=== PATIENT | female | born 1960 | race African-American/Black ===

== ENCOUNTER 2017-07-11 15:03 | Emergency (ER) | payer OTHER ==
[2017-07-11 15:16] VITALS: BP 142/80; PULSE 95; TEMP 98.5; BMI 27.4
--- NOTE | 2017-07-11 16:46 | PDOC ---
History of Present Illness - History of Present Illness Initial Comments: 07/11/17 16:53 The patient is a 56 year old female with a significant PMH of asthma who presents to the emergency department with LLE pain s/p vascular surgery. The patient has left the ED AMA to bring her father home as he had no other way home. The patient has had recent vascular surgery and has an ulcer on her LLE. Dr. Thibodeaux has been sent a photograph of the ulcer and recommended that she be admitted Obs/Medsurge. She said she will return after she brings her father. <Rakesh Thomas - Last Filed: 07/11/17 16:58> <Ioana nAdrew - Last Filed: 07/11/17 22:24> - General Chief Complaint: Redness To Affected Area Stated Complaint: LT LEG PAIN Time Seen by Provider: 07/11/17 16:16 Past History <Rakesh Thomas - Last Filed: 07/11/17 16:58> - Past Medical History Asthma: Yes Other medical history: heroin abuse - Surgical History Abdominal Surgery: Yes (ECTOPIC ) - Suicide/Smoking/Psychosocial Hx Smoking History: Current every day smoker Have you smoked in the past 12 months: Yes Number of Cigarettes Smoked Daily: 6 Information on smoking cessation initiated: Yes 'Breaking Loose' booklet given: 07/11/17 Hx Alcohol Use: No Drug/Substance Use Hx: Yes (heroin) <Ioana Andrew - Last Filed: 07/11/17 22:24> - Past Medical History Allergies/Adverse Reactions: Allergies Allergy/AdvReac Type Severity Reaction Status Date / Time No Known Allergies Allergy Verified 07/11/17 15:10 Home Medications: Ambulatory Orders Albuterol 0.083% Nebulizer Jaja 1 puff IH TID PRN 01/10/17 Ranitidine HCl [Zantac] 150 mg PO DAILY 01/10/17 Ibuprofen [Motrin -] 600 mg PO TID PRN 05/13/17 Oxycodone HCl/Acetaminophen [Percocet 5-325 mg Tablet] 1 tab PO Q6H #30 tablet MDD 4 06/09/17 *Physical Exam - Vital Signs Last Vital Signs Temp Pulse Resp BP Pulse Ox 98.5 F 95 H 18 142/80 100 07/11/17 15:12 07/11/17 15:12 07/11/17 15:12 07/11/17 15:12 07/11/17 15:12 - Physical Exam Comments: 07/11/17 16:54 GENERAL: Well-appearing, well-nourished. No apparent distress. HEENT: Normocephalic, atraumatic. PERRL, EOM intact. CARDIOVASCULAR: Normal S1, S2. Regular rate and rhythm. PULMONARY: Clear to auscultation bilaterally. ABDOMEN: Soft, non-distended, non-tender. EXTREMITIES: (+) Medial aspect of LLE healed after vascular surgery. (+) Lateral 1 cm ulcer on LLE surrounded by 4 cm halo of erythema. Normal ROM in all four extremities. SKIN: Warm, dry. No rash NEUROLOGICAL: No focal neurological deficits. 07/11/17 16:58 <Rakesh Thomas - Last Filed: 07/11/17 16:58> - Vital Signs Last Vital Signs Temp Pulse Resp BP Pulse Ox 98.5 F 95 H 18 142/80 100 07/11/17 15:12 07/11/17 15:12 07/11/17 15:12 07/11/17 15:12 07/11/17 15:12 <Ioana Andrew - Last Filed: 07/11/17 22:24> Medical Decision Making - Medical Decision Making 07/11/17 17:27 56-year-old female who had laser, vascular surgery 2 weeks ago on her left ankle and lower calf presents with an ulceration and surrounding cellulitis and pain . in that area about 72 hours ago. She hit that leg. I sent photos to Dr. Thibodeaux. He recommended admit to [facility] for IV antibiotics for 24 hours. Upon hearing this plan. The patient said that she needs to take her father home in her car and would return with her . She signed out AMA. <Ioana Andrew - Last Filed: 07/11/17 22:24> *DC/Admit/Observation/Transfer - Attestations Scribe Attestion: 07/11/17 16:54 Documentation prepared by Rakesh Thomas, acting as biomedical engineering technician for Ioana Andrew MD. <Rakesh Thomas - Last Filed: 07/11/17 16:58> <Ioana Andrew - Last Filed: 07/11/17 22:24> Diagnosis at time of Disposition: Cellulitis and abscess of leg - Discharge Dispostion Disposition: AGAINST MEDICAL ADVICE Condition at time of disposition: Stable - Referrals Referrals: Zaina Lyle MD [Primary Care Provider] -
== END 2017-07-11 17:31 | disposition left against medical advice (07) ==
LOC: JER 15:03
DX: L97.821 Non-pressure chronic ulcer of other part of left lower leg limited to breakdown of skin (principal); L03.116 Cellulitis of left lower limb; Z98.890 Other specified postprocedural states
CPT/HCPCS: 99281-25

== ENCOUNTER 2017-07-12 21:59 | Inpatient (IN) | payer OTHER ==
--- NOTE | 2017-07-13 00:16 | PDOC ---
History of Present Illness - General History Source: Patient Exam Limitations: No Limitations - History of Present Illness Initial Comments: 07/13/17 00:43 Patient is a 56 year old female with a significant past medical history of Propo vascular disease, Chronic venous stasis, asthma, who presents to the ED with a left lateral wound and left leg cellulitis. She reports injuring her left leg 3 days ago that resulted in intense pain. Patient reports having vascular surgery 2 weeks ago. Patient reports leg healing nicely until she hit the back of her left calf on the back of a cabinet causing instant pain. She reports pain has intensified over the 3 days. Physician states patient came in july 11 for IV antibiotics but left AMA to take father home and did not return. Denies chest pain, SOB. Denies coughing, nausea, vomiting. Denies fever, chills. Denies any other symptoms Allergies: Social history: Heroin abuse (Recovering). Current smoker. No alcohol Surgical history: LLE Vascular surgery. Ectopic . PMD: Dr. Thibodeaux 07/13/17 00:52 <Manjeet Leiva - Last Filed: 07/13/17 00:52> <Ioana Andrew - Last Filed: 07/13/17 02:03> - General Chief Complaint: Pain Stated Complaint: PCP ADMIT Time Seen by Provider: 07/13/17 00:12 Past History <Manjeet Leiva - Last Filed: 07/13/17 00:52> - Past Medical History Asthma: Yes - Surgical History Abdominal Surgery: Yes (ECTOPIC ) - Suicide/Smoking/Psychosocial Hx Smoking History: Current every day smoker Have you smoked in the past 12 months: Yes Number of Cigarettes Smoked Daily: 6 Information on smoking cessation initiated: No 'Breaking Loose' booklet given: 07/11/17 Hx Alcohol Use: No Drug/Substance Use Hx: Yes (Heroin) Substance Use Type: Heroin <Ioana Andrew - Last Filed: 07/13/17 02:03> - Past Medical History Allergies/Adverse Reactions: Allergies Allergy/AdvReac Type Severity Reaction Status Date / Time No Known Allergies Allergy Verified 07/12/17 22:28 Home Medications: Ambulatory Orders Albuterol 0.083% Nebulizer Jaja 1 puff IH TID PRN 01/10/17 Ranitidine HCl [Zantac] 150 mg PO DAILY 01/10/17 Oxycodone HCl/Acetaminophen [Percocet 5-325 mg Tablet] 1 tab PO Q6H #30 tablet MDD 4 06/09/17 Review of Systems - Review of Systems Able to Perform ROS?: Yes Comments:: 07/13/17 00:43 CONSTITUTIONAL: Absent: fever, chills, diaphoresis, generalized weakness, malaise, loss of appetite HEENT: Absent: rhinorrhea, nasal congestion, throat pain, throat swelling, difficulty swallowing, mouth swelling, ear pain, eye pain, visual Changes CARDIOVASCULAR: Absent: chest pain, syncope, palpitations, irregular heart rate, lightheadedness , peripheral edema RESPIRATORY: Absent: cough, shortness of breath, dyspnea with exertion, orthopnea, wheezing, stridor, hemoptysis GASTROINTESTINAL: Absent: abdominal pain, abdominal distension, nausea, vomiting, diarrhea, constipation, melena, hematochezia GENITOURINARY: Absent: dysuria, frequency, urgency, hesitancy, hematuria, flank pain, genital pain MUSCULOSKELETAL: +Lower extremity pain bilaterally. +Left lateral wound. + Chronic venous stasis bilaterally. Absent: myalgia, arthralgia, SKIN: Absent: rash, itching, pallor HEMATOLOGIC/IMMUNOLOGIC: Absent: easy bleeding, easy bruising, lymphadenopathy, frequent infections ENDOCRINE: Absent: unexplained weight gain, unexplained weight loss, heat intolerance, cold intolerance NEUROLOGIC: Absent: headache, focal weakness or paresthesias, dizziness, unsteady gait, seizure, mental status changes, bladder or bowel incontinence PSYCHIATRIC: Absent: anxiety, depression, suicidal or homicidal ideation, hallucinations. All Other Systems: Reviewed and Negative <Manjeet Leiva - Last Filed: 07/13/17 00:52> *Physical Exam - Vital Signs Last Vital Signs Temp Pulse Resp BP Pulse Ox 98.4 F 80 20 104/65 100 07/12/17 22:28 07/12/17 22:28 07/12/17 22:28 07/12/17 22:28 07/12/17 22:28 - Physical Exam Comments: 07/13/17 00:45 GENERAL: +Complains of pain Well developed, well nourished. Awake and alert. No acute distress. HEENT: Normocephalic, atraumatic. PERRLA, EOMI. No conjunctival pallor. Sclera are non- icteric. Moist mucous membranes. Oropharynx is clear. NECK: Supple. Full ROM. No JVD. Carotid pulses 2+ and symmetric, without bruits. No thyromegaly. No lymphadenopathy. CARDIOVASCULAR: Regular rate and rhythm. No murmurs, rubs, or gallops. Distal pulses are 2+ and symmetric. PULMONARY: COPD No evidence of respiratory distress. Lungs clear to auscultation bilaterally. No wheezing, rales or rhonchi. ABDOMINAL: Soft. Non-tender. Non-distended. No rebound or guarding. No organomegaly. Normoactive bowel sounds. MUSCULOSKELETAL Normal range of motion at all joints. No bony deformities or tenderness. No CVA tenderness. EXTREMITIES: +Left lateral 1 cm wound. + LEft lateral calf to foot cellulitis. + Bilateral chronic venous stasis. Moving all extremities. No cyanosis. No clubbing. No edema. No calf tenderness. SKIN: Warm and dry. Normal capillary refill. No rashes. No jaundice. NEUROLOGICAL: Alert, awake, appropriate. Cranial nerves 2-12 intact. No deficits to light touch and temperature in face, upper extremities and lower extremities. No motor deficits in the in face, upper extremities and lower extremities. Normoreflexic in the upper and lower extremities. Normal speech. Toes are down-going bilaterally. Gait is normal without ataxia. PSYCHIATRIC: Cooperative. Good eye contact. Appropriate mood and affect. <Manjeet Leiva - Last Filed: 07/13/17 00:52> - Vital Signs Last Vital Signs Temp Pulse Resp BP Pulse Ox 98.4 F 80 20 104/65 100 07/12/17 22:28 07/12/17 22:28 07/12/17 22:28 07/12/17 22:28 07/12/17 22:28 <Ioana Andrew - Last Filed: 07/13/17 02:03> ED Treatment Course - LABORATORY CBC & Chemistry Diagram: 07/13/17 01:30 07/13/17 01:30 <Ioana Andrew - Last Filed: 07/13/17 02:03> Medical Decision Making - Medical Decision Making 07/13/17 00:19 56-year-old woman had a history of peripheral vascular disease and had some nonhealing ulcers that were treated by Dr. Thibodeaux several weeks ago. About 3 days ago she hit her left leg and has since then had an ulceration with surrounding area of erythema that was very tender. She was seen yesterday in this ER but left AMA <Ioana Andrew - Last Filed: 07/13/17 02:03> *DC/Admit/Observation/Transfer - Attestations Scribe Attestion: 07/13/17 00:45 Documentation prepared by Manjeet Leiva, acting as medical research associate for Ioana Andrew MD/DO. <Manjeet Leiva - Last Filed: 07/13/17 00:52> - Discharge Dispostion Admit: Yes <Ioana Andrew - Last Filed: 07/13/17 02:03> Diagnosis at time of Disposition: Cellulitis Qualifiers: Site of cellulitis: extremity Site of cellulitis of extremity: lower extremity Laterality: left Qualified Code(s): L03.116 - Cellulitis of left lower limb - Referrals Referrals: Zaina Lyle MD [Primary Care Provider] -
[2017-07-13] MEDS ORDERED: PIPERACILLIN/TAZOB 3.375 GM 3.375 GM in DEXTROSE 5%-WATER - 50 ML IVPB ONE (00:30)
[2017-07-13] MEDS ORDERED: SILVER SULFADIAZINE 1% TOP CREAM 50 GM JAR TP ONE ×2 (00:57→00:59)
[2017-07-13] MEDS ORDERED: PIPERACILLIN/TAZOB 3.375 GM 50 ML IVPB ONE (01:35)
[2017-07-13 01:50] LABS: BASOPHIL 0.3 % (0-2.0); EOSINOPHIL 2.2 % (0-4.5); MCH 28.3 pg (25.7-33.7); MEAN CELL VOLUME 85.8 fl (80-96); NEUTROPHILS 76.8 % (42.8-82.8); PLATELET COUNT 340 K/MM3 (134-434); RDW 14.2 % (11.6-15.6); WHITE BLOOD COUNT 8.5 K/mm3 (4.0-10.0)
[2017-07-13 02:18] LABS: INR 1.07 (0.82-1.09); PROTHROMBIN TIME (PATIENT) 11.8 SEC (9.98-11.88)
[2017-07-13 02:19] LABS: ALBUMIN 3.2 g/dl (3.4-5.0); ALK PHOS 114 U/L (45-117); ANION GAP 10 (8-16); BILIRUBIN,TOTAL 0.3 mg/dL (0.2-1.0); CALCIUM 9.2 mg/dL (8.5-10.1); CO2 27 mmol/L (21-32); CREATININE 1.1 mg/dL (0.55-1.02); GLUCOSE,RANDOM 99 mg/dL (74-106); SGOT/AST 19 U/L (15-37); SGPT/ALT 17 U/L (12-78); TOT PROT 7.7 g/dl (6.4-8.2)
[2017-07-13] MEDS ORDERED: POTASSIUM CHLORIDE TABS 20 MEQ TABLET.ER (FP) PO ONE (02:42)
--- NOTE | 2017-07-13 05:36 | HP ---
CHIEF COMPLAINT: leg wound PCP: none, Vascular: Thibodeaux HISTORY OF PRESENT ILLNESS: This is a 56 year old male with a significant past medical history of PVD, venous stasis ulcer, current heroin use who presented to the ED with a report of left leg wound. Pt states that she did hit her leg on a cabinet a few days ago but thinks the wound may have originated as a spider bite. She reports increased pain in her leg with swelling and erythema x 4 days. She initially presented to the ED on 07/11 but signed out AMA as per ED note. Pt also reports that she was on over 100mg of methadone and was "administratively detoxed too quickly" because she was unable to attend her group sessions due to health issues and frequent visits to her vascular surgeon. ER course was notable for: (1) Potassium 3.1 (2) WBC 8.5 Recent Travel: pt denies PAST MEDICAL HISTORY: PVD chronic venous stasis asthma-rarely needs albuterol PAST SURGICAL HISTORY: B/L LE vascular surgery, R leg 3 weeks ago, L Leg 2 weeks ago, to "close the holes in my veins" Social History: Smoking: smoker x 45 years, currently smokes 6 cig / day Alcohol: pt denies Drugs: currently uses heroin-last use yesterday Family History: mother alive, h/o BrCA father unk sister age 39, lung CA sister alive, stage 4 throat CA brother with HIV, ESRD 6 children, 2 sons with heart murmurs/valve problems Allergies No Known Allergies Allergy (Verified 07/12/17 22:28) HOME MEDICATIONS: 3 Medication Instructions Recorded Albuterol 0.083% Nebulizer Jaja 1 puff IH TID PRN 01/10/17 Ranitidine HCl [Zantac] 150 mg PO DAILY 01/10/17 Oxycodone HCl/Acetaminophen 1 tab PO Q6H #30 tablet MDD 4 06/09/17 [Percocet 5-325 mg Tablet] REVIEW OF SYSTEMS CONSTITUTIONAL: Absent: fever, chills, diaphoresis, generalized weakness, malaise, loss of appetite, weight change HEENT: Absent: rhinorrhea, nasal congestion, throat pain, throat swelling, difficulty swallowing, mouth swelling, ear pain, eye pain, visual changes CARDIOVASCULAR: Absent: chest pain, syncope, palpitations, irregular heart rate, lightheadedness , peripheral edema RESPIRATORY: Absent: cough, shortness of breath, dyspnea with exertion, orthopnea, wheezing, stridor, hemoptysis GASTROINTESTINAL: Absent: abdominal pain, abdominal distension, nausea, vomiting, diarrhea, constipation, melena, hematochezia GENITOURINARY: Absent: dysuria, frequency, urgency, hesitancy, hematuria, flank pain, genital pain MUSCULOSKELETAL: Present: Pain, swelling, erythema left lower leg Absent: myalgia, arthralgia, joint swelling, back pain, neck pain SKIN: Absent: rash, itching, pallor HEMATOLOGIC/IMMUNOLOGIC: Absent: easy bleeding, easy bruising, lymphadenopathy, frequent infections ENDOCRINE: Absent: unexplained weight gain, unexplained weight loss, heat intolerance, cold intolerance NEUROLOGIC: Absent: headache, focal weakness or paresthesias, dizziness, unsteady gait, seizure, mental status changes, bladder or bowel incontinence PSYCHIATRIC: Absent: anxiety, depression, suicidal or homicidal ideation, hallucinations. PHYSICAL EXAMINATION Vital Signs - 24 hr 3 07/12/17 07/13/17 07/13/17 22:28 00:28 03:50 Temperature 98.4 F Pulse Rate 80 Pulse Rate [ 72 Left] Respiratory 20 18 Rate Blood Pressure 104/65 Blood Pressure 108/67 [Right Arm] O2 Sat by Pulse 100 100 100 Oximetry (%) GENERAL: Awake, alert, and fully oriented, in no acute distress. HEAD: Normal with no signs of trauma. EYES: Pupils equal, round and reactive to light, extraocular movements intact, sclera anicteric, conjunctiva clear. No lid lag. EARS, NOSE, THROAT: Ears normal, nares patent, oropharynx clear without exudates. Moist mucous membranes. NECK: Normal range of motion, supple without lymphadenopathy, JVD, or masses. LUNGS: Breath sounds equal, clear to auscultation bilaterally. No wheezes, and no crackles. No accessory muscle use. HEART: Regular rate and rhythm, normal S1 and S2 without murmur, rub or gallop. ABDOMEN: Soft, nontender, not distended, normoactive bowel sounds, no guarding, no rebound, no masses. No hepatomegaly or splenomegaly. MUSCULOSKELETAL: Normal range of motion at all joints. No bony deformities or tenderness. No CVA tenderness. UPPER EXTREMITIES: 2+ pulses, warm, well-perfused. No cyanosis. No clubbing. No peripheral edema. track javier noted right inner forearm, no surrounding erythema or induration LOWER EXTREMITIES: 2+ pulses, warm, well-perfused. No calf tenderness. No peripheral edema right. 1+ edema LLL and foot. + erythema to foot and lower half lower leg. approx 1cm scab noted to lateral mid calf overlying slightly indurated area, not fluctuant; pt reports it came to a head and drained pus and still oozes at times. Hyperpigmentation noted to bilat lower extremities NEUROLOGICAL: Cranial nerves II-XII intact. Normal speech. Normal gait. PSYCHIATRIC: Cooperative. Good eye contact. Appropriate mood and affect. SKIN: Warm, dry, normal turgor, no rashes or lesions noted, normal capillary refill. Right foot and ankle with multiple shallow ulcerations, no discharge noted on dressing Laboratory Results - last 24 hr 3 07/13/17 07/13/17 07/13/17 07/13/17 01:30 01:30 01:30 02:00 WBC 8.5 D RBC 3.62 Hgb 10.3 L Hct 31.1 L MCV 85.8 MCH 28.3 MCHC 33.0 RDW 14.2 Plt Count 340 MPV 8.0 Neutrophils % 76.8 D Lymphocytes % 14.0 D Monocytes % 6.7 Eosinophils % 2.2 Basophils % 0.3 PT with INR 11.80 INR 1.07 Sodium 140 Potassium 3.1 L D Chloride 103 Carbon Dioxide 27 Anion Gap 10 BUN 18 Creatinine 1.1 H Creat Clearance w eGFR 51.02 Random Glucose 99 Lactic Acid 1.5 Calcium 9.2 Total Bilirubin 0.3 AST 19 ALT 17 Alkaline Phosphatase 114 D Total Protein 7.7 Albumin 3.2 L Blood Type O POSITIVE Antibody Screen Negative Radiology reports CXR- no obvious infiltrates or effusions noted, official read pending. ASSESSMENT/PLAN: 56yF with PMH PVD, chronic venous stasis, asthma presented to the ED with LLE cellulitis. Cellulitis LLE in setting of PVD/venous stasis - given zosyn in ED, will cont with unasyn 3g q6h - oxycodone for pain - vascular consult - monitor CBC Hypokalemia - given 40mg potassium - repeat BMP in am, Mg ordered asthma - asymptomatic, monitor for wheezing and treat opioid dependence - consider methadone if withdrawal - COWS score 4 at present - Dr. Juan Ramon Galarza consult DVT PPX -heparin SC TID FEN - pt tolerating po fluids - BMP in am - regular diet Dispo: Pt currently requires inpatient management of her emergent condition. Visit type - Emergency Visit Emergency Visit: Yes ED Registration Date: 07/12/17 Care time: The patient presented to the Emergency Department on the above date and was hospitalized for further evaluation of their emergent condition. - New Patient This patient is new to me today: Yes Date on this admission: 07/13/17 - Critical Care Critical Care patient: No
[2017-07-13 06:25] VITALS: BMI 24.9
[2017-07-13] MEDS: HEPARIN NA (PORCINE) 5,000 UNITS/ML 1ML VIAL SQ SCH ×3 (06:47→21:17)
[2017-07-13] MEDS ORDERED: AMPICILLIN NA/SULBACTAM NA 3 GM in SODIUM CHLORIDE 100 ML IVPB SCH (08:00)
--- NOTE | 2017-07-13 08:25 | CONSULT ---
- Consultation REQUESTING PROVIDER: Juan C Thibodeaux (Wound Care) CONSULT REQUEST: We have been asked to surgically evaluate this patient for LLE wound PCP: Shahla Ibanez HPI: 56yo female with PMHx noted below. Comes to [facility] ED for evaluation of a wound to her LLE. Pt states that she did hit her leg on a cabinet a few days ago but thinks the wound may have originated as a spider bite. She reports increased pain in her leg with swelling and erythema x 4 days. She initially presented to the ED on 07/11 but signed out AMA as per ED note. Currently, not actively draining. On Unasyn. No fever/chills, n/v/d. PMHx: PVD, chronic venous stasis, asthma-rarely needs albuterol, heroin user PSHx: Bilat LE laser vein stripping --> RLE 3 weeks ago, LLE 2 weeks ago Social History: Smokin cig / day x45 years Alcohol: Denies Drugs: currently uses heroin-last use 07/11/17 Home Meds 3 Albuterol 0.083% Nebulizer Jaja 1 puff IH TID PRN 01/10/17 Ranitidine HCl [Zantac] 150 mg PO DAILY 01/10/17 Percocet 5-325 mg Tablet 1 tab PO Q6H #30 tablet MDD 4 06/09/17 Allergies: NKDA ROS: CONSTITUTIONAL: Absent: fever, chills, diaphoresis, generalized weakness, malaise, loss of appetite, weight change CARDIOVASCULAR: Absent: chest pain, syncope, palpitations, irregular heart rate, lightheadedness , peripheral edema RESPIRATORY: Absent: cough, shortness of breath, dyspnea with exertion, wheezing, stridor, hemoptysis GASTROINTESTINAL: Absent: abdominal pain, abdominal distension, nausea, vomiting, diarrhea, constipation, melena, hematochezia GENITOURINARY: Absent: dysuria, frequency, urgency, hesitancy, hematuria, flank pain, genital pain MUSCULOSKELETAL: Absent: myalgia, arthralgia, joint swelling, back pain, neck pain SKIN: Absent: rash, itching, pallor HEMATOLOGIC/IMMUNOLOGIC: Absent: easy bleeding, easy bruising, lymphadenopathy NEUROLOGIC: Absent: headache, focal weakness, paresthesias, dizziness, unsteady gait, seizure, mental status changes, bladder or bowel incontinence PSYCHIATRIC: Absent: anxiety, depression, suicidal or homicidal ideation, hallucinations. PHYSICAL EXAM: GENERAL: Awake, alert, nad LE: 2+ pulses bilat, warm, well-perfused. No calf tenderness. +1 edema to left foot. ~ 3 x 2.54 cm ulcer with dry scab roof. No purulence fluctuance/induration. RLE dressing intact. Bilat venous stasis dermatitis. Bronzing of tissue from distal calf extending to foot. PSYCH: Cooperative. Good eye contact. Appropriate mood and affect. SKIN: Warm, dry, normal turgor, no rashes or lesions noted. Vital Signs Temperature 98.1 F 07/13/17 02:03 Pulse Rate 72 07/13/17 03:50 Respiratory Rate 18 07/13/17 03:50 Blood Pressure 108/67 07/13/17 03:50 O2 Sat by Pulse Oximetry (%) 100 07/13/17 03:50 Lab Results WBC 8.5 K/mm3 (4.0-10.0) D 07/13/17 01:30 RBC 3.62 M/mm3 (3.60-5.2) 07/13/17 01:30 Hgb 10.3 GM/dL (10.7-15.3) L 07/13/17 01:30 Hct 31.1 % (32.4-45.2) L 07/13/17 01:30 MCV 85.8 fl (80-96) 07/13/17 01:30 MCHC 33.0 g/dl (32.0-36.0) 07/13/17 01:30 RDW 14.2 % (11.6-15.6) 07/13/17 01:30 Plt Count 340 K/MM3 (134-434) 07/13/17 01:30 Sodium 140 mmol/L (136-145) 07/13/17 01:30 Potassium 3.1 mmol/L (3.5-5.1) L D 07/13/17 01:30 Chloride 103 mmol/L (98-107) 07/13/17 01:30 Carbon Dioxide 27 mmol/L (21-32) 07/13/17 01:30 Anion Gap 10 (8-16) 07/13/17 01:30 BUN 18 mg/dL (7-18) 07/13/17 01:30 Creatinine 1.1 mg/dL (0.55-1.02) H 07/13/17 01:30 Random Glucose 99 mg/dL (74-106) 07/13/17 01:30 Calcium 9.2 mg/dL (8.5-10.1) 07/13/17 01:30 Blood Type O POSITIVE 07/13/17 01:30 Antibody Screen Negative 07/13/17 01:30 INR 1.07 (0.82-1.09) 07/13/17 01:30 Problem List - Problems (1) Cellulitis Assessment/Plan: IV abx as ordered Pain management Conservative manageement --> wash bilat legs/feet with warm soapy water daily No surgical intervention Cont medical management per primary team On behalf of Dr. Thibodeaux, thank you for the opportunity to participate in your patient's care Code(s): L03.90 - CELLULITIS, UNSPECIFIED Qualifiers: Site of cellulitis: extremity Site of cellulitis of extremity: lower extremity Laterality: left Qualified Code(s): L03.116 - Cellulitis of left lower limb Visit type - Case Type Case Type: ED Admission - Emergency Emergency Visit: Yes ED Registration Date: 07/13/17 Care time: The patient presented to the Emergency Department on the above date and was hospitalized for further evaluation of their emergent condition. - New patient This patient is new to me today: Yes Date on this admission: 07/13/17
[2017-07-13 09:12] LABS: MCH 27.9 pg (25.7-33.7); MCHC 32.7 g/dl (32.0-36.0); MEAN CELL VOLUME 85.2 fl (80-96); MEAN PLT VOLUME 7.7 fl (7.5-11.1); PLATELET COUNT 366 K/MM3 (134-434); RDW 14.4 % (11.6-15.6); WHITE BLOOD COUNT 9.1 K/mm3 (4.0-10.0)
--- NOTE | 2017-07-13 09:17 | PN ---
Progress Note (short form) - Note Progress Note: Vascular Surgery Pt seen and examined. complains of pain on post left calf. There is a wound there with eschar. no drainage, but very tender to touch. cont IV antibiotics. leg elevation Juan C Thibodeaux DO
[2017-07-13 09:40] LABS: ANION GAP 4 (8-16); CALCIUM 9.1 mg/dL (8.5-10.1); CO2 29 mmol/L (21-32); CREATININE 0.8 mg/dL (0.55-1.02); GLUCOSE,RANDOM 157 mg/dL (74-106); MAGNESIUM 2.1 mg/dL (1.8-2.4); PHOSPHOROUS 2.8 mg/dL (2.5-4.9)
[2017-07-13] MEDS ORDERED: RANITIDINE HCL 150 MG TABLET (FP) PO SCH (10:00)
[2017-07-13] MEDS: oxyCODONE HCL 5 MG TABLET PO PRN ×3 (10:03→23:23)
[2017-07-13] MEDS: ACETAMINOPHEN 325 MG TABLET (FP) PO PRN ×3 (10:04→23:24)
[2017-07-13] MEDS: AMPICILLIN NA/SULBACTAM NA 3 GM in SODIUM CHLORIDE 100 ML IVPB SCH ×2 (10:05→14:34)
--- NOTE | 2017-07-13 12:12 | EKG ---
Test Reason : Blood Pressure : / mmHG Vent. Rate : 072 BPM Atrial Rate : 072 BPM P-R Int : 180 ms QRS Dur : 100 ms QT Int : 400 ms P-R-T Axes : 071 073 045 degrees QTc Int : 438 ms NORMAL SINUS RHYTHM INCOMPLETE RIGHT BUNDLE BRANCH BLOCK BORDERLINE ECG WHEN COMPARED WITH ECG OF 10-MAR-2014 15:57, NONSPECIFIC T WAVE ABNORMALITY NOW EVIDENT IN ANTERIOR LEADS Confirmed by AMBER BARNEY, TERRI ([id number]) on 07/13/2017 12:11:55 PM Referred By: Confirmed By:TERRI CLARK MD
[2017-07-13] MEDS ORDERED: POTASSIUM CHLORIDE ORAL LIQUID 20 MEQ/15 ML PO ONE (16:38)
--- NOTE | 2017-07-13 16:42 | PN ---
Physical Exam: SUBJECTIVE: Patient seen and examined OBJECTIVE: Vital Signs Period Temp Pulse Resp BP Sys/Hardwick Pulse Ox Last 24 Hr 98.1 F-98.3 F 69-90 16-20 105-112/57-67 100 Laboratory Results - last 24 hr 07/13/17 07/13/17 07/13/17 08:57 08:57 08:57 WBC 9.1 RBC 3.76 Hgb 10.5 L Hct 32.0 L MCV 85.2 MCH 27.9 MCHC 32.7 RDW 14.4 Plt Count 366 MPV 7.7 Sodium 138 Potassium 3.4 L Chloride 105 Carbon Dioxide 29 Anion Gap 4 L BUN 15 Creatinine 0.8 D Random Glucose 157 H D Calcium 9.1 Phosphorus 2.8 Magnesium 2.1 Blood Type O POSITIVE Active Medications Generic Name Dose Route Start Last Admin Trade Name Freq PRN Reason Stop Dose Admin Acetaminophen 650 mg 07/13/17 02:51 07/13/17 10:04 Tylenol - PO 650 mg Q6H PRN Administration FEVER OR PAIN Heparin Sodium (Porcine) 5,000 unit 07/13/17 06:00 07/13/17 14:34 Heparin - SQ 5,000 unit TID ERLIN Administration Ampicillin Sodium/Sulbactam 100 mls @ 200 mls/hr 07/13/17 09:00 07/13/17 14:34 Sodium 3 gm/ Sodium Chloride IVPB 200 mls/hr Q6H-IV ERLIN Administration Oxycodone HCl 5 mg 07/13/17 02:44 07/13/17 10:03 Roxicodone - PO 5 mg Q6H PRN Administration PAIN Ranitidine HCl 150 mg 07/13/17 10:00 07/13/17 10:06 Zantac - PO 150 mg DAILY ERLIN Administration ASSESSMENT/PLAN:
[2017-07-13] MEDS ORDERED: VANCOMYCIN 1,250 MG in DEXTROSE 5%-WATER - 250 ML IVPB SCH (17:00)
--- NOTE | 2017-07-13 17:04 | CON.ID ---
Consult Consult Specialty:: infectious diseases Reason for Consultation:: cellulitits of the left leg - History of Present Illness Chief Complaint: pain and tenderness over the left leg History of Present Illness: 56 year old female with a history of PVD, venous stasis ulcer, current heroin use admitted with a report of left leg wound. Pt states that she hit her leg on a cabinet a few days ago patient also mentions that she might have had a spider bite. patient is a poor historian At this moment there is no way to know it currently patient is c/o of increased tenderness and says pain is very severe says her rt leg was operated which has a dressing and that has been doing well patient is a immunocompromised lady and is on a very high dose of methadone also noted from the leg is foul smell and some peeling of the skin on the heel - History Source History Provided By: Patient, Medical Record Limitations to Obtaining History: Poor Historian - Past Medical History Pulmonary: Yes: Asthma ...: No Psych: Yes: Addictions (On methadone maintenance program) - Alcohol/Substance Use Hx Alcohol Use: No - Smoking History Smoking history: Current every day smoker Have you smoked in the past 12 months: Yes Aproximately how many cigarettes per day: 6 Home Medications - Allergies Allergies/Adverse Reactions: Allergies Allergy/AdvReac Type Severity Reaction Status Date / Time No Known Allergies Allergy Verified 07/12/17 22:28 - Home Medications Home Medications: Ambulatory Orders Albuterol 0.083% Nebulizer Jaja 1 puff IH TID PRN 01/10/17 Ranitidine HCl [Zantac] 150 mg PO DAILY 01/10/17 Oxycodone HCl/Acetaminophen [Percocet 5-325 mg Tablet] 1 tab PO Q6H #30 tablet MDD 4 06/09/17 Review of Systems - Review of Systems Constitutional: reports: Other Eyes: reports: No Symptoms HENT: reports: No Symptoms Neck: reports: No Symptoms Cardiovascular: reports: No Symptoms Respiratory: reports: No Symptoms Gastrointestinal: reports: No Symptoms Genitourinary: reports: No Symptoms Musculoskeletal: reports: Extremity Pain (left), Muscle Pain Integumentary: reports: Change in Color, Erythema Neurological: reports: No Symptoms Endocrine: reports: No Symptoms Hematology/Lymphatic: reports: No Symptoms Psychiatric: reports: No Symptoms Physical Exam Vital Signs: Vital Signs Temperature 98.3 F 07/13/17 14:02 Pulse Rate 69 07/13/17 14:02 Respiratory Rate 16 07/13/17 14:02 Blood Pressure 105/57 07/13/17 14:02 O2 Sat by Pulse Oximetry (%) 100 07/13/17 03:50 Constitutional: Yes: Anxious, Severe Distress, Thin Eyes: Yes: Conjunctiva Clear Neck: Yes: Supple, Trachea Midline Cardiovascular: Yes: Regular Rate and Rhythm, S1, S2 Respiratory: Yes: Regular, CTA Bilaterally Gastrointestinal: Yes: Normal Bowel Sounds, Soft Musculoskeletal: Yes: Muscle Pain Extremities: Yes: Erythema (left leg), Other (tenderness left leg) Integumentary: Yes: Erythema, Other Neurological: Yes: Alert, Oriented Psychiatric: Yes: Alert, Oriented Labs: CBC, BMP 07/13/17 08:57 07/13/17 08:57 Imaging - Results Chest X-ray: Report Reviewed, Image Reviewed Assessment/Plan 56yF with PMH PVD, chronic venous stasis, asthma with LLE cellulitis. Cellulitis LLE asthma opioid dependence patient with fouls smell and cellulitits of the leg plan stat xray--if xray shows any finding might need ct scan changed abx to zosyn and vanco for now will see how she responds elevation of leg rest as per primary
[2017-07-13] MEDS ORDERED: PIPERACILLIN/TAZOBACTAM 3.375 GM VIAL IVPB ONE (17:08)
[2017-07-13] MEDS ORDERED: DEXTROSE 5%-WATER - 50 ML IVPB ONE (17:08)
[2017-07-13] MEDS: PIPERACILLIN/TAZOB 3.375 GM 3.375 GM in DEXTROSE 5%-WATER - 50 ML IVPB SCH (17:10)
--- NOTE | 2017-07-13 18:32 | CONSULT ---
Consult [facility] Referred by:: Leslye Smith NP - History History of Present Illness: 56 y/o woman with hx. of - History Source History Provided By: Patient, Medical Record - Alcohol/Substance Use Hx Alcohol Use: No - Past Medical History Pulmonary: Yes: Asthma ...: No Psych: Yes: Addictions (On methadone maintenance program)
[2017-07-14] MEDS ORDERED: DEXTROSE 5%-WATER - 50 ML IVPB ONE (00:58)
[2017-07-14] MEDS ORDERED: PIPERACILLIN/TAZOBACTAM 3.375 GM VIAL IVPB ONE (00:58)
[2017-07-14] MEDS: PIPERACILLIN/TAZOB 3.375 GM 3.375 GM in DEXTROSE 5%-WATER - 50 ML IVPB SCH (01:10)
[2017-07-14] MEDS: oxyCODONE HCL 5 MG TABLET PO PRN (05:00)
[2017-07-14] MEDS: ACETAMINOPHEN 325 MG TABLET (FP) PO PRN (05:01)
[2017-07-14] MEDS: HEPARIN NA (PORCINE) 5,000 UNITS/ML 1ML VIAL SQ SCH (05:44)
--- NOTE | 2017-07-14 05:55 | HOSP ---
Subjective - Review of Symptoms Subjective: pt reports that she is in withdrawal. reports pain all over and states that she needs her methadone. General: No: Chills HEENT: No: Other (rhinorrhea) Gastrointestinal: No: Nausea, Vomiting, Abdominal Pain Musculoskeletal: Yes: Muscle Pain, Other (body aches) Neurological: No: Other (no tremor noted) Other Systems: no observed yawning Physical Examination Vital Signs: Vital Signs Temperature 97.8 F 07/13/17 22:08 Pulse Rate 64 07/13/17 22:08 Respiratory Rate 20 07/13/17 22:08 Blood Pressure 102/67 07/13/17 22:08 O2 Sat by Pulse Oximetry (%) 100 07/13/17 03:50 Constitutional: Yes: Mild Distress Eyes: Yes: WNL HENT: No: Rhinnorhea Cardiovascular: Yes: Regular Rate and Rhythm Respiratory: Yes: CTA Bilaterally Musculoskeletal: Yes: Other (able to move all extremities, is limping around room) Extremities: Yes: Other (dressing in place right foot, left lower leg less erythematous than yesterday, tr edema) Neurological: No: Tremors Labs: CBC, BMP 07/13/17 08:57 07/13/17 08:57 Hospitalist Encounter Assessment: cellultis LLE - recommended pt stay for further treatment, but pt refusing Opioid abuse/dependence - discussed use of methadone with pt, advised pt as discussed yesterday on admission if Dr. Juan Ramon Galarza does not feel pt is in need of methadone, I would not prescribe it. Advised pt that if she is willing to wait until morning that I would call Dr. Urrutia to further discuss treatment options. Pt states, " I have to go, I'm sick, I have to do something." Pt advised that if she leaves she will have to sign in again. Pt advised of risks of leaving without completing treatment including worsening infection, risk of gangrene, possible loss of limb, sepsis and even . Advised pt if she leaves and comes back again she will have to begin process again through the ED. Pt signed out AMA.
[2017-07-14 06:11] VITALS: BP 142/74; PULSE 81; TEMP 98.4
--- NOTE | 2017-07-14 07:24 | DS ---
Physical Exam: SUBJECTIVE: Patient seen and examined OBJECTIVE: Vital Signs Period Temp Pulse Resp BP Sys/Hardwick Pulse Ox Last 24 Hr 97.8 F-98.4 F 64-90 16-20 102-142/57-74 PHYSICAL EXAM GENERAL: The patient is awake, alert, and fully oriented, in no acute distress. HEAD: Normal with no signs of trauma. EYES: PERRL, extraocular movements intact, sclera anicteric, conjunctiva clear. ENT: Ears normal, nares patent, oropharynx clear without exudates, moist mucous membranes. NECK: Trachea midline, full range of motion, supple. LUNGS: Breath sounds equal, clear to auscultation bilaterally, no wheezes, no crackles, no accessory muscle use. HEART: Regular rate and rhythm, S1, S2 without murmur, rub or gallop. ABDOMEN: Soft, nontender, nondistended, normoactive bowel sounds, no guarding, no rebound, no hepatosplenomegaly, no masses. EXTREMITIES: 2+ pulses, warm, well-perfused, no edema. NEUROLOGICAL: Cranial nerves II through XII grossly intact. Normal speech, gait not observed. PSYCH: Normal mood, normal affect. SKIN: Warm, dry, normal turgor, no rashes or lesions noted. LABS Laboratory Results - last 24 hr 07/13/17 07/13/17 07/13/17 08:57 08:57 08:57 WBC 9.1 RBC 3.76 Hgb 10.5 L Hct 32.0 L MCV 85.2 MCH 27.9 MCHC 32.7 RDW 14.4 Plt Count 366 MPV 7.7 Sodium 138 Potassium 3.4 L Chloride 105 Carbon Dioxide 29 Anion Gap 4 L BUN 15 Creatinine 0.8 D Random Glucose 157 H D Calcium 9.1 Phosphorus 2.8 Magnesium 2.1 Blood Type O POSITIVE HOSPITAL COURSE: Date of Admission:07/13/17 Date of Discharge: 07/14/17 Minutes to complete discharge: 37 Discharge Summary Reason For Visit: CELLULITIS Hospital Course: 56 year old male with a significant past medical history of PVD, venous stasis ulcer, current heroin use who presented to the ED with a report of left leg wound. Pt states that she did hit her leg on a cabinet a few days ago but thinks the wound may have originated as a spider bite. She reports increased pain in her leg with swelling and erythema x 4 days. She initially presented to the ED on 07/11 but signed out AMA as per ED note. Pt also reports that she was on over 100mg of methadone and was "administratively detoxed too quickly" because she was unable to attend her group sessions due to health issues and frequent visits to her vascular surgeon. - Instructions Referrals: Zaina Lyle MD [Primary Care Provider] - Disposition: AGAINST MEDICAL ADVICE - Home Medications Comprehensive Discharge Medication List: Ambulatory Orders Albuterol 0.083% Nebulizer Jaja 1 puff IH TID PRN 01/10/17 Ranitidine HCl [Zantac] 150 mg PO DAILY 01/10/17 Oxycodone HCl/Acetaminophen [Percocet 5-325 mg Tablet] 1 tab PO Q6H #30 tablet MDD 4 06/09/17
== END 2017-07-14 05:40 | disposition left against medical advice (07) | DRG 383 ==
LOC: JER 21:59 → JERBED 07-13 02:03 → J6S 07-13 04:40
PROVIDERS: ADMIT Internal Medicine; ATTEND Nurse Practitioner Acute Care
DX: L03.116 Cellulitis of left lower limb (principal); J45.909 Unspecified asthma, uncomplicated; I73.9 Peripheral vascular disease, unspecified; F17.210 Nicotine dependence, cigarettes, uncomplicated; I87.8 Other specified disorders of veins; E87.6 Hypokalemia; F11.20 Opioid dependence, uncomplicated
CPT/HCPCS: 36415; 71010-TC; 73610-TC-LT; 73630-TC-LT; 80048; 80053; 83605; 83735; 84100; 85025; 85027; 85610; 86850; 86900; 86901; 87040; 87070; 87186; 87205; 93005; 93010; 99284-25; J1644

== ENCOUNTER 2017-07-18 02:22 | Emergency (ER) | payer OTHER ==
[2017-07-18 03:52] VITALS: BP 135/85; PULSE 95; TEMP 98.3; BMI 29.2
--- NOTE | 2017-07-18 03:53 | PDOC ---
History of Present Illness - General Stated Complaint: LEG SWOLLEN - History of Present Illness Initial Comments: 07/18/17 03:53 CHIEF COMPLAINT: L leg cellulitis HISTORY OF PRESENT ILLNESS: 56 yo F with hx of PVD, venous stasis ulcer, current heroin use who presents ED with L leg cellulitis. She reports decreased pain swelling and discharge since she was seen in this hospital 4 days ago. She initially presented to the ED on 07/11 but signed out AMA, and then signed out AMA again on 07/14 because she "got sick because I was detoxed too quickly." She c/o pain to her L leg "but it's much better than before" and that she would like antibiotics "because I didn't finish them when I was in the hospital." Patient states her doctor is Dr. Juan C Thibodeaux and she will see him this week. PAST MEDICAL HISTORY: as per HPI FAMILY HISTORY: Denies SOCIAL HISTORY: Heroin abuse SURGICAL HISTORY: Denies ALLERGIES: No known drug allergies REVIEW OF SYSTEMS General/Constitutional: Denies fever or chills. Denies weakness, weight change. HEENT: Denies change in vision. Denies ear pain or discharge. Denies sore throat. Cardiovascular: Denies chest pain or shortness of breath. Respiratory: Denies cough, wheezing, or hemoptysis. Gastrointestinal: Denies nausea, vomiting, diarrhea or constipation. Denies rectal bleeding. Genitourinary: Denies dysuria, frequency, or change in urination. Musculoskeletal: Pain to L leg secondary to cellulitis. PHYSICAL EXAM General Appearance: Well-appearing, appropriately dressed. No apparent distress. HEENT: Poor dentition. EOMI, PERRLA. No conjunctival pallor. No photophobia, scleral icterus. Respiratory/Chest: Lungs CTAB. No shortness of breath, chest tenderness, respiratory distress, accessory muscle use. No crackles, rales, rhonchi, stridor , wheezing, dullness Cardiovascular: RRR. S1, S2. Gastrointestinal/Abdominal: Normal bowel sounds. Abdomen soft, non-distended. No tenderness or rebound tenderness. No organomegaly, pulsatile mass, guarding , hernia, hepatomegaly, splenomegaly. Musculoskeletal/Extremities: Normal inspection. FROM of all extremities, normal capillary refill. Pelvis Stable. No CVA tenderness. No tenderness to extremities, pedal edema, swelling, erythema or deformity. Integumentary: Swelling and brown discoloration to L lower leg. Appropriate color, dry, warm. No cyanosis, erythema, jaundice or rash Neurologic: director data architecture II-XII intact. Fully oriented, alert. Appropriate mood/affect. Motor strength 5/5. No appreciable EOM palsy, facial droop or sensory deficit. 07/18/17 04:00 Past History - Past Medical History Allergies/Adverse Reactions: Allergies Allergy/AdvReac Type Severity Reaction Status Date / Time No Known Allergies Allergy Verified 07/18/17 03:50 Home Medications: Ambulatory Orders Albuterol 0.083% Nebulizer Jaja 1 puff IH TID PRN 01/10/17 Ranitidine HCl [Zantac] 150 mg PO DAILY 01/10/17 Oxycodone HCl/Acetaminophen [Percocet 5-325 mg Tablet] 1 tab PO Q6H #30 tablet MDD 4 06/09/17 Cephalexin [Keflex] 500 mg PO QID #20 capsule 07/18/17 Ibuprofen 800 mg PO TID #21 tablet 07/18/17 Asthma: Yes - Surgical History Abdominal Surgery: Yes (ECTOPIC ) - Suicide/Smoking/Psychosocial Hx Smoking History: Unknown if ever smoked Have you smoked in the past 12 months: Yes Number of Cigarettes Smoked Daily: 6 'Breaking Loose' booklet given: 07/11/17 Hx Alcohol Use: No Drug/Substance Use Hx: Yes Substance Use Type: Heroin *Physical Exam - Vital Signs Last Vital Signs Temp Pulse Resp BP Pulse Ox 98.3 F 95 H 14 135/85 98 07/18/17 03:50 07/18/17 03:50 07/18/17 03:50 07/18/17 03:50 07/18/17 03:50 Medical Decision Making - Medical Decision Making 07/18/17 04:03 56 yo F with hx of PVD, venous stasis ulcer, current heroin use who presents ED with L leg cellulitis. Motrin and Keflex rx sent to pharm. Advised patient to continue following up with Dr. Thibodeaux; patient states she "will definitely follow up with him." Advised patient of signs and symptoms for return to ER; patient verbalized understanding and agrees to plan. *DC/Admit/Observation/Transfer Diagnosis at time of Disposition: Cellulitis Qualifiers: Site of cellulitis: extremity Site of cellulitis of extremity: lower extremity Laterality: left Qualified Code(s): L03.116 - Cellulitis of left lower limb - Discharge Dispostion Disposition: HOME Condition at time of disposition: Stable - Prescriptions Prescriptions: Ibuprofen 800 mg PO TID #21 tablet Cephalexin [Keflex] 500 mg PO QID #20 capsule - Referrals Referrals: Zaina Lyle MD [Primary Care Provider] - Juan C Thibodeaux MD [Staff Physician] - - Patient Instructions Printed Discharge Instructions: DI for Cellulitis -- Adult Additional Instructions: Please take medications as prescribed. As discussed, you must follow up with Dr. Thibodeaux this week for further monitoring of your leg. If you develop nausea, vomiting, diarrhea, fever, chills, or worsening swelling or pain of your leg, please return to the ER.
[2017-07-18] MEDS ORDERED: IBUPROFEN 400 MG TABLET (FP) PO ONE ×2 (03:58→04:05)
== END 2017-07-18 04:13 | disposition home or self-care (01) ==
LOC: JER 02:22
DX: L03.116 Cellulitis of left lower limb (principal); I83.209 Varicose veins of unspecified lower extremity with both ulcer of unspecified site and inflammation; L97.909 Non-pressure chronic ulcer of unspecified part of unspecified lower leg with unspecified severity; I73.9 Peripheral vascular disease, unspecified; F11.10 Opioid abuse, uncomplicated
CPT/HCPCS: 99281-25

== ENCOUNTER 2017-08-01 11:42 | Emergency (ER) | payer OTHER ==
[2017-08-01 11:52] VITALS: BP 137/80; PULSE 88; TEMP 98.4; BMI 27.1
--- NOTE | 2017-08-01 12:36 | PDOC ---
History of Present Illness - General Chief Complaint: Wound Infection Stated Complaint: WOUND INFECTION Time Seen by Provider: 08/01/17 11:56 - History of Present Illness Initial Comments: 08/01/17 12:43 The patient is a 56 year old female with a history of PVD and Heroin use who presents for evaluation of a LLE infection. The patient reports that she had a vascular surgery to help her PVD approximately 3 weeks ago. She states that on 07/11, she got an injury to her left lower leg and an infection and was seen in the ED at that time. She signed out AMA on 07/11 and then re-presented to the ED on 07/13 for the same infection and was admitted at that time for IV antibiotics. She signed out on 07/14 AMA due to concerns for withdrawal. She states since that time, she has had improvement in her lower leg swelling and pain and reports being able to ambulate recently without crutches. However, she noted a tense "blister" on the back of her heel over the past 3 days that began draining today prompting her to present to the ED for evaluation. She denies fevers, chills, SOB, chest pain, abdominal pain, or changes with bowel movements or urination. Past History - Past Medical History Allergies/Adverse Reactions: Allergies Allergy/AdvReac Type Severity Reaction Status Date / Time No Known Allergies Allergy Verified 08/01/17 11:47 Home Medications: Ambulatory Orders Ibuprofen 800 mg PO TID #21 tablet 07/18/17 Asthma: Yes Other medical history: heroin abuse , last used today, pvd - Surgical History Abdominal Surgery: Yes (ECTOPIC ) - Suicide/Smoking/Psychosocial Hx Smoking History: Current every day smoker Have you smoked in the past 12 months: Yes Number of Cigarettes Smoked Daily: 10 Information on smoking cessation initiated: Yes 'Breaking Loose' booklet given: 08/01/17 Hx Alcohol Use: No Drug/Substance Use Hx: Yes (herion) Substance Use Type: Heroin Review of Systems - Review of Systems Comments:: 08/01/17 12:50 Constitutional: No fevers, chills, fatigue, malaise HEENT: No Rhinorrhea, nasal congestion, visual changes Cardiovascular: No chest pain, syncope, palpitations, lightheadedness Respiratory: No Cough, SOB, Hemoptysis, orthopnea Gastrointestinal: No Abdominal pain, Nausea, Vomiting, Constipation, Diarrhea, Genitourinary: No Dysuria, Frequency, Urgency, Hesitancy, Hematuria, Flank pain Musculoskeletal: No Myalgia, arthralgia Skin: No rashes, itching, bruising, pallor Neurologic: No Headache, Dizziness, Numbness, Weakness, or Tingling *Physical Exam - Vital Signs Last Vital Signs Temp Pulse Resp BP Pulse Ox 98.4 F 88 18 137/80 100 08/01/17 11:49 08/01/17 11:49 08/01/17 11:49 08/01/17 11:49 08/01/17 11:49 - Physical Exam Comments: 08/01/17 12:51 General Appearance: Nourished. No Apparent Distress HEENT: EOMI, GILLES. No Pharyngeal Erythema, Tonsillar Exudate, Tonsillar Erythema Neck: No Cervical Lymphadenopathy Respiratory/Chest: Lungs Clear, Normal Breath Sounds. No Crackles, Rales, Rhonchi, Wheezing Cardiovascular: Regular Rhythm, Regular Rate. No Murmur, Gallops, Rubs Gastrointestinal/Abdominal: Normal Bowel Sounds, Soft. No Organomegaly, Guarding, Rebound, Tenderness Musculoskeletal: No CVA Tenderness Extremity: 2+ pitting edema in the left calf, 2cm superficial ulcerated wound to the lateral aspect of the left calf. Wound to the heel with mild surrounding erythema. Normal Capillary Refill Integumentary: Normal Color, Dry, Warm Neurologic: Fully Oriented, Alert, Normal Mood/Affect, Normal Response, Medical Decision Making - Medical Decision Making 08/01/17 12:58 The patient is a 56 year old female with a history of PVD and Heroin use who presents for evaluation of a LLE infection. Differential includes but is not limited to: Cellulitis, osteomylitis, non-healing ulcer, metabolic derangement. Given the patient's history of a cellulitis as well as PVD with poor wound healing, it is likely the patient has continued cellulitis in her left lower extremity. Previous wound culture grew MRSA. Overall the patient reports improvement in her symptoms, and we have a lower suspicion for worsening infection given her stable vitals and physical exam. We will obtain a cbc, cmp , crp, and ESR to evaluate here in the ED and continue to monitor and reassess. 08/01/17 13:14 We discussed with the patient that she would likely require admission for IV antibiotics. The patient reported that she would like to leave to take her car home prior to admission. We informed her that she would not be able to do that without signing out AMA and reregistering in the ED. She continued to wish to leave. We discussed the risks of leaving AMA including worsening infection, loss of limb, and . The patient continued to wish to leave AMA. She is alert, oriented x3, and ambulatory. *DC/Admit/Observation/Transfer Diagnosis at time of Disposition: Cellulitis Qualifiers: Site of cellulitis: extremity Site of cellulitis of extremity: lower extremity Laterality: left Qualified Code(s): L03.116 - Cellulitis of left lower limb; L03.116 - Cellulitis of left lower limb - Discharge Dispostion Disposition: AGAINST MEDICAL ADVICE Condition at time of disposition: Stable - Referrals Referrals: Zaina Lyle MD [Primary Care Provider] - - Patient Instructions Printed Discharge Instructions: DI for Wound Infection
--- NOTE | 2017-08-01 13:24 | PDOC ---
Attending Attestation - Resident Resident Name: Hao Galindo - ED Attending Attestation I have performed the following: I have examined & evaluated the patient, The case was reviewed & discussed with the resident, I agree w/resident's findings & plan, Exceptions are as noted - HPI HPI: 08/01/17 13:24 56 F with h/o heroin abuse, PVD presenting with LLE wound. Pt was previously admitted for cellulitis of this leg and on IV abx but left AMA prior to completion. Pt was sent home with keflex, but her wound cultures grew MRSA. She presents today with new ulcer to L heel and worsening swelling of her leg. Denies F/C. - Physicial Exam PE: 08/01/17 13:27 "GENERAL: Awake, alert, and fully oriented, in no acute distress HEAD: No signs of trauma EYES: PERRLA, EOMI, sclera anicteric, conjunctiva clear ENT: Auricles normal inspection, hearing grossly normal, nares patent, oropharynx clear without exudates. Moist mucosa NECK: Normal ROM, supple, no lymphadenopathy, JVD, or masses LUNGS: Breath sounds equal, clear to auscultation bilaterally. No wheezes, and no crackles HEART: Regular rate and rhythm, normal S1 and S2, no murmurs, rubs or gallops ABDOMEN: Soft, nontender, normoactive bowel sounds. No guarding, no rebound. No masses EXTREMITIES: LLE with +2 pitting edema, 2cm ulceration L heel with surrounding erythema, tender to palpation, no discharge NEUROLOGICAL: Cranial nerves II through XII grossly intact. Normal speech, normal gait SKIN: Warm, Dry, normal turgor, no rashes or lesions noted. - Medical Decision Making 08/01/17 13:29 56 F with likely venous stasis ulcer with surrounding erythema concerning for cellulitis. Pt was previously on IV abx but left AMA. Was taking keflex but wound cultures grew MRSA, so pt has not had adequate coverage. - Labs - IV abx - Admit 08/01/17 13:30 Pt now requesting to leave the hospital to "pay her parking tickets" before being admitted to hospital. She states that she will return to the ER as soon as she has taken care of this matter. The patient is clinically sober, free from distracting injury, appears to have intact insight and judgment and reason and in my opinion has the capacity to make decisions. The patient presented with cellulitis. I have discussed the need for ID consultation and possible admission to the hospital for IV antibiotics. I have told the patient that if they leave and experience worsening infection or fevers, they could get much worse, could become critically ill, and could possibly become disabled or . I have offered to give the patient more pain medication. The patient is not willing to stay for admission at this time. She is refusing any further care at this moment and is leaving against medical advice. I am unable to convince the patient to stay, I have asked them to return as soon as possible to complete their evaluation. I have answered all their questions.
== END 2017-08-01 13:39 | disposition left against medical advice (07) ==
LOC: JER 11:42
DX: L03.116 Cellulitis of left lower limb (principal); F17.210 Nicotine dependence, cigarettes, uncomplicated
CPT/HCPCS: 99282-25

== ENCOUNTER 2017-08-02 00:16 | Emergency (ER) | payer OTHER ==
[2017-08-02 01:21] VITALS: TEMP 97.5; BMI 26.5
--- NOTE | 2017-08-02 01:50 | PDOC ---
History of Present Illness - General Chief Complaint: Pain, Acute Stated Complaint: LEG PAIN/LT LEG Time Seen by Provider: 08/02/17 00:27 History Source: Patient Exam Limitations: No Limitations - History of Present Illness Initial Comments: 08/02/17 01:39 56yo Female patient w/ PmHx: Substance Abuse (Heroin) and PVD presents to ED c/ o LLE infection. Patient states she is currently under the care of Dr. Thibodeaux from wound care and is being treated for LLE skin infection. She states approximately 3 weeks ago, she had vascular surgery to "open up blood vessels in both legs." She states her right leg recovered but she is having complications with her left leg. She was recently admitted and discharge a week ago, put on Keflex four times a day. Symptoms improved but worsened after medications were completed. Patient was seen and evaluated in this ED 08-01-2017 with possible admission, but signed out AMA to move her car and gather clothes. She returns requesting admission to hospital. She denies any other complaints at this time. Occurred: reports: last week Severity: Yes: moderate Lower Extremity Pain Location: left: leg Method of Injury: Yes: other (See HPI) Modifying Factors: improves with: other (ABX) Associated Symptoms: See HPI Lower Ext. Injury Location - Specific Injury Location Legs: right: normal inspection, non-tender, left: soft tissue tenderness, pain, swelling, bilateral: normal range of motion Extremity Pain Location - Extremity Pain Location Extremity Pain Locations: left: leg Past History - Travel Traveled outside of the country in the last 30 days: No Close contact w/someone who was outside of country & ill: No - Past Medical History Allergies/Adverse Reactions: Allergies Allergy/AdvReac Type Severity Reaction Status Date / Time No Known Allergies Allergy Verified 08/02/17 01:22 Home Medications: Ambulatory Orders Ibuprofen 800 mg PO TID #21 tablet 07/18/17 Albuterol Sulfate Inhaler - [Ventolin Hfa Inhaler -] 1 - 2 inh PO Q4H 08/02/17 Clindamycin HCl 150 mg PO TID #30 capsule 08/02/17 Clindamycin HCl 300 mg PO TID #30 capsule 08/02/17 Tramadol HCl 50 mg PO Q6H PRN #12 tablet MDD 4 tabs 08/02/17 Asthma: Yes - Surgical History Abdominal Surgery: Yes (ECTOPIC ) - Immunization History Immunization Up to Date: No - Suicide/Smoking/Psychosocial Hx Smoking History: Never smoked Have you smoked in the past 12 months: Yes Number of Cigarettes Smoked Daily: 10 Information on smoking cessation initiated: Yes 'Breaking Loose' booklet given: 08/01/17 Hx Alcohol Use: No Drug/Substance Use Hx: No Substance Use Type: Heroin Review of Systems - Review of Systems Able to Perform ROS?: Yes Is the patient limited Belgian proficient: No Musculoskeletal: Yes: Other (Left Leg Pain) Integumentary: Yes: Other (Skin wound) All Other Systems: Reviewed and Negative *Physical Exam - Vital Signs Last Vital Signs Temp Pulse Resp BP Pulse Ox 97.5 F L 75 20 124/87 100 08/02/17 01:17 08/02/17 01:17 08/02/17 01:17 08/02/17 01:17 08/02/17 01:17 - Physical Exam General Appearance: Yes: Nourished, Appropriately Dressed, Mild Distress. No: Apparent Distress, Moderate Distress, Severe Distress Neck: positive: Trachea midline, Supple. negative: Rigid, Stridor, Lymphadenopathy (R), Lymphadenopathy (L) Respiratory/Chest: positive: Lungs Clear, Normal Breath Sounds. negative: Chest Tender, Respiratory Distress, Accessory Muscle Use, Labored Respiration, Rapid RR Cardiovascular: positive: Regular Rhythm, Regular Rate Musculoskeletal: positive: Normal Inspection, Decreased Range of Motion (LLE). negative: CVA Tenderness, Vertebral Tenderness Extremity: positive: Normal Capillary Refill, Normal Inspection, Normal Range of Motion, Swelling (LLE), Calf Tenderness (LLE), Erythema (MILD- LLE). negative: Pedal Edema, Inflammation Integumentary: positive: Dry, Warm Neurologic: positive: lighter II-XII NML intact, Fully Oriented, Alert, Normal Mood/ Affect, Normal Response, Motor Strength /5 ED Treatment Course - LABORATORY CBC & Chemistry Diagram: 08/02/17 02:27 08/02/17 03:51 - RADIOLOGY Radiology Studies Ordered: Category Date Time Status DUPLEX VASCUL US-1 LEG [US] Stat Ultrasound 08/02/17 01:02 Taken *DC/Admit/Observation/Transfer Diagnosis at time of Disposition: Skin infection - Discharge Dispostion Disposition: HOME Condition at time of disposition: Stable Admit: No - Prescriptions Prescriptions: Clindamycin HCl 150 mg PO TID #30 capsule Clindamycin HCl 300 mg PO TID #30 capsule Tramadol HCl 50 mg PO Q6H PRN #12 tablet MDD 4 tabs PRN Reason: Severe Pain - Patient Instructions Printed Discharge Instructions: DI for Wound Infection Additional Instructions: Follow up with Dr. Thibodeaux within 2 days for wound check or return here. Monitor for increase redness, warmth, swelling, pain, or any concerns and return for further evaluation. Print Language: SERBIAN
[2017-08-02] MEDS ORDERED: CLINDAMYCIN 600MG PREMIX IVPB 50 ML IVPB ONE ×2 (01:51→03:12)
[2017-08-02] MEDS ORDERED: VANCOMYCIN 1,000 MG in DEXTROSE 5%-WATER - 250 ML IVPB ONE (01:51)
[2017-08-02 02:37] LABS: BASOPHIL 0.8 % (0-2.0); EOSINOPHIL 3.3 % (0-4.5); MCH 28.2 pg (25.7-33.7); MCHC 33.6 g/dl (32.0-36.0); MEAN PLT VOLUME 8.2 fl (7.5-11.1); PLATELET COUNT 457 K/MM3 (134-434); RDW 15.1 % (11.6-15.6); WHITE BLOOD COUNT 4.9 K/mm3 (4.0-10.0)
[2017-08-02 02:55] LABS: ACTIVATED PTT 33.4 SECONDS (26.9-34.4)
[2017-08-02 02:57] LABS: INR 1.02 (0.82-1.09); PROTHROMBIN TIME (PATIENT) 11.2 SEC (9.98-11.88)
[2017-08-02] MEDS ORDERED: VANCOMYCIN 1 GRAM (PRE-DOCKED) 250 ML IVPB ONE (03:12)
[2017-08-02 04:28] LABS: ALBUMIN 2.8 g/dl (3.4-5.0); ANION GAP 9 (8-16); CALCIUM 8.5 mg/dL (8.5-10.1); CO2 30 mmol/L (21-32); CREATININE 1.1 mg/dL (0.55-1.02); GLUCOSE,RANDOM 129 mg/dL (74-106); SGOT/AST 24 U/L (15-37); SGPT/ALT 21 U/L (12-78)
[2017-08-02 04:29] LABS: ALK PHOS 99 U/L (45-117); BILIRUBIN,TOTAL 0.2 mg/dL (0.2-1.0)
[2017-08-02] MEDS ORDERED: POTASSIUM CHLORIDE TABS 20 MEQ TABLET.ER (FP) PO ONE ×2 (04:43→05:54)
[2017-08-02 06:02] VITALS: BP 119/63; PULSE 69
--- NOTE | 2017-08-03 12:12 | PDOC ---
Patient Follow-up (Call Back) - Post ED Follow - Up Condition at time of discharge: Fair Reason for Call Back: Abnwl. Microbiology (Patient with presumptive MRSA on clindamycin spoke to lab, appropriate treatment.)
== END 2017-08-02 06:02 | disposition home or self-care (01) ==
LOC: JER 00:16
DX: L08.89 Other specified local infections of the skin and subcutaneous tissue (principal); I73.9 Peripheral vascular disease, unspecified
CPT/HCPCS: 36415; 80053; 85025; 85610; 85730; 87040; 87070; 87186; 87205; 93971-TC; 96365; 96368; 99281-25

== ENCOUNTER 2019-11-28 14:08 | Inpatient (IN) | payer OTHER ==
--- NOTE | 2019-11-28 17:02 | HP ---
CIWA Score - Admission Criteria OASAS Guidelines: Admission for Medically Managed Detox: Requires at least one of the followin. CIWA greater than 12 2. Seizures within the past 24 hours 3. Delirium tremens within the past 24 hours 4. Hallucinations within the past 24 hours 5. Acute intervention needed for co occurring medical disorder 6. Acute intervention needed for co occurring psychiatric disorder 7. Severe withdrawal that cannot be handled at a lower level of care (continued vomiting, continued diarrhea, abnormal vital signs) requiring intravenous medication and/or fluids 8. Admitting History and Physical - Admission History of Present Illness: Seeking rehab for cocaine, heroin, and cigarettes. Heroin: first use age 17, last use this morning. Uses 1 bag 3x / week. Is in a methadone program. Gets 130mg daily from [address], last dose yesterday. Has withdrawn before. Cocaine: first use at age 36, last use today, uses $20-30 daily. Denies alcohol use. Tobacco: smokes 1/2 ppd since age 12. Feels nervous and jittery since she hasn't had methadone since yesterday. No tremors. Has been yawning. No GI upset. Utox pos for cocaine, methamphetamine, fentanyl, opiates, methadone PMH: Asthma, Reflux, PVD (uses silvadene) PSH: ectopic Psych: none Meds: zantac, motrin All: none Soc: lives in [facility] with boyfriend, not sexually active. has been screened for HIV and was negative. Does not want to be screened History Source: Patient Limitations to Obtaining History: No Limitations - Past Medical History Pulmonary: Yes: Asthma Psych: Yes: Addictions (On methadone maintenance program) - Smoking History Smoking history: Never smoked Have you smoked in the past 12 months: Yes Aproximately how many cigarettes per day: 10 - Alcohol/Substance Use Hx Alcohol Use: No Admission ROS S - HPI Allergies/Adverse Reactions: Allergies Allergy/AdvReac Type Severity Reaction Status Date / Time No Known Allergies Allergy Verified 07/10/18 12:55 Patient History - Patient Medical History Hx Asthma: Yes - Patient Surgical History Hx Abdominal Surgery: Yes (ECTOPIC ) Anesthesia Reaction: No - Smoking Cessation Smoking history: Never smoked Have you smoked in the past 12 months: Yes Aproximately how many cigarettes per day: 10 Hx Chewing Tobacco Use: No Initiated information on smoking cessation: Yes 'Breaking Loose' booklet given: 11/28/19 Admission Physical Exam [facility] - Physical General Appearance: Yes: Within Normal Limits HEENTM: Yes: Within Normal Limits, EOMI, Normal Voice, GILLES Respiratory: Yes: Within Normal Limits, Lungs Clear, Normal Breath Sounds Neck: Yes: Within Normal Limits Cardiology: Yes: Within Normal Limits, Regular Rhythm, Regular Rate Abdominal: Yes: Within Normal Limits, Normal Bowel Sounds, Non Tender, Flat, Soft Musculoskeletal: Yes: Within Normal Limits Extremities: Yes: Other (peripheral vascular disease, stasis changes, no edema at this time) Neurological: Yes: Within Normal Limits, anesthesiology physician II-XII NML intact, Fully Oriented Integumentary: Yes: Other (skin darkening of b/l LE) Breathalyzer - Breathalyzer Breathalyzer: 0 Urine Drug Screen - Test Device Lot number: [id number] Expiration date: 09/17/21 - Control Is test valid?: Yes - Results Drug screen NEGATIVE: No Urine drug screen results: OTF-Cocaine, MET-Methamphetamine, FEN-Fentanyl, MOP- Opiates, MTD-Methadone Inpatient Rehab Admission - Rehab Decision to Admit Inpatient rehab admission?: Yes - Initial Determination Are CD services needed?: Yes Free of communicable disease: Yes Not in need of hospitalization: Yes - Rehab Admission Criteria Previous failed treatment: Yes Poor recovery environment: Yes Comorbidities: Yes Lacks judgement: Yes Patient is meeting Inpatient Rehab admission criteria:: Yes
[2019-11-28] MEDS ORDERED: LOPERAMIDE HCL 2 MG CAPSULE PO PRN (17:20)
[2019-11-28] MEDS ORDERED: MENTHOL/PHENOL 1 EACH UD MM PRN (17:20)
[2019-11-28] MEDS ORDERED: MAGNESIUM CITRATE 300 ML BOTTLE PO PRN (17:20)
[2019-11-28] MEDS ORDERED: ACETAMINOPHEN 325 MG TABLET (FP) PO PRN (17:20)
[2019-11-28] MEDS ORDERED: IBUPROFEN 400 MG TABLET (FP) PO PRN (17:20)
[2019-11-28] MEDS ORDERED: guaiFENesin 200 MG/10 ML 10 ML UNIT-DOSE CUPS PO PRN (17:20)
[2019-11-28] MEDS ORDERED: MAGNESIUM HYDROX 2400MG/30ML ORAL SUSPENSION 30 ML CUP PO PRN (17:20)
[2019-11-28] MEDS ORDERED: P-EPHED 60MG/TRIPROLIDI 2.5MG TABLET PO PRN (17:20)
[2019-11-28] MEDS ORDERED: MAG HYDROX/AL HYDROX/SIMETH 30 ML UNIT-DOSE CUP PO PRN (17:20)
[2019-11-28] MEDS ORDERED: METHADONE HCL 10 MG TABLET PO SCH (17:30)
[2019-11-28] MEDS ORDERED: TUBERCULIN PPD 5 TU/0.1ML VIAL ID ONE ×2 (18:05→23:29)
[2019-11-28] MEDS ORDERED: METHADONE 120 MG, METHADONE 10 MG PO ONE (18:30)
[2019-11-28] MEDS ORDERED: METHADONE HCL 40 MG DISPERSABLE TABLET ONE (19:13)
[2019-11-28] MEDS ORDERED: METHADONE HCL 10 MG TABLET ONE (19:13)
[2019-11-28] MEDS: THIAMINE HCL 100 MG TABLET (FP) PO SCH (21:56)
[2019-11-28] MEDS ORDERED: PATIENT'S OWN MEDICATION (NON-FORMULARY) (Ibuprofen [Ibuprofen] 800 MG) PO SCH (22:00)
[2019-11-29] MEDS ORDERED: METHADONE HCL 40 MG DISPERSABLE TABLET ONE (07:39)
[2019-11-29] MEDS: METHADONE 120 MG, METHADONE 10 MG PO SCH (07:39)
[2019-11-29] MEDS ORDERED: METHADONE HCL 10 MG TABLET ONE (07:39)
[2019-11-29] MEDS: PRENATAL VITAMINS W/ FOLIC ACID TABLET (FP) PO SCH (10:49)
[2019-11-29] MEDS: NICOTINE 14 MG/24 HOURS TOPICAL PATCH TD SCH (10:49)
[2019-11-29] MEDS ORDERED: PNEUMOCOCCAL 23 VACCINE 0.5 ML VIAL IM ONE (12:00)
[2019-11-29] MEDS ORDERED: FLU VACCINE QUAD 60 MCG/0.5 ML (MDV 19-20) IM ONE (12:00)
[2019-11-29] MEDS ORDERED: PNEUMOC 13-VAL CONJ-DIP CRM/PF 0.5 ML DISP.SYRIN IM ONE (12:00)
[2019-11-29 12:21] LABS: HEMATOCRIT 35.9 % (32.4-45.2); HEMOGLOBIN 11.8 GM/dL (10.7-15.3); MCH 28.8 pg (25.7-33.7); MCHC 32.9 g/dl (32.0-36.0); MEAN CELL VOLUME 87.6 fl (80-96); MEAN PLT VOLUME 8.8 fl (7.5-11.1); PLATELET COUNT 328 K/MM3 (134-434); RDW 14.2 % (11.6-15.6); WHITE BLOOD COUNT 3.3 K/mm3 (4.0-10.0)
[2019-11-29] MEDS ORDERED: PT OWN MED DRAWER 7, Y5N ONE (12:23)
[2019-11-29 12:48] LABS: ALBUMIN 3.4 g/dl (3.4-5.0); BILIRUBIN,TOTAL 0.2 mg/dL (0.2-1); BLOOD UREA NITROGEN 13.7 mg/dL (7-18); CALCIUM 9.3 mg/dL (8.5-10.1); CREATININE 1.1 mg/dL (0.55-1.3); TOT PROT 7.1 g/dl (6.4-8.2)
[2019-11-29] MEDS ORDERED: PANTOPRAZOLE 40 MG TABLET PO ONE (14:33)
--- NOTE | 2019-11-29 14:37 | PN ---
[facility] Progress Note Note: Pt is a 58 y/o female with a hx of HILLARY-heroin,cocaine and on STJ-MMTP with Methadone 130 mg po daily admitted to rehab through [facility] on 11/28/19. PMHx:Asthma, GERD,PVD. Psych HX: Denies. SHx:Ectopic . Pt reports she has a primary care provider dr. Hao Hollis with [facility] on [address] [place] [address]. . Pt reports she has been very non compliant with her doctor and last saw him 6 months ago. pt also reports she uses the wound care clinc at [facility] for her chronic LE skin/vascular problems. Vital Signs - 24 hr 11/28/19 11/29/19 11/29/19 23:04 00:29 03:35 Temperature 97.6 F Pulse Rate 64 Respiratory 20 16 16 Rate Blood Pressure 100/67 11/29/19 11/29/19 11/29/19 06:37 07:38 12:05 Temperature 98.4 F 97.8 F Pulse Rate 73 Respiratory 16 18 Rate Blood Pressure 108/63 Laboratory Tests 11/29/19 11/29/19 11/29/19 09:20 09:20 09:20 WBC 3.3 L RBC 4.10 Hgb 11.8 Hct 35.9 MCV 87.6 MCH 28.8 MCHC 32.9 RDW 14.2 Plt Count 328 MPV 8.8 Sodium 139 Potassium 4.0 Chloride 103 Carbon Dioxide 31 Anion Gap 5 L BUN 13.7 Creatinine 1.1 Est GFR (CKD-EPI)AfAm 63.20 Est GFR (CKD-EPI)NonAf 54.53 Random Glucose 108 H Calcium 9.3 Total Bilirubin 0.2 AST 26 ALT 18 Alkaline Phosphatase 110 Total Protein 7.1 Albumin 3.4 RPR Titer Nonreactive UA abnl result Pt verbalized no symptoms and reiterates "I'm not sexually active. I'm fine". Alert o x 3 nad oob ambulating with steady gait extremities/skin:dry,scaly, flaky with areas of lichenified skin; dark discoloration of LE(lower half to feet) bilaterally. A/P HILLARY new rehab pt MMTP pt Maintain safety moisturize LE with lotion as directed. increase po fluids follow up with counselor for CD aftercare planning. follow up with your primary care provider, Dr. Hao Hollis for medical management after rehab treatment. D/w pt Will Repeat UA and UC r/o UTI.
[2019-11-29 14:40] LABS: HYALINE CASTS 26 /lpf (0-8); PH,URINE 5.5 (5.0-8.0); URINE APPEARANCE CLOUDY; URINE BILIRUBIN NEGATIVE (NEGATIVE); URINE COLOR DK YELLOW; URINE GLUCOSE (UA) NEGATIVE (NEGATIVE); URINE KETONE NEGATIVE (NEGATIVE); URINE LEUK ESTERASE 1+ (NEGATIVE); URINE NITRITE NEGATIVE (NEGATIVE); URINE PROTEIN NEGATIVE (NEGATIVE); URINE RBC 2 /hpf (0-4); URINE UROBILINOGEN 0.2 mg/dL (0.2-1.0); URINE WBC 25 /hpf (0-5)
[2019-11-29 15:02] LABS: URINE CRYSTALS NON SEEN /hpf
[2019-11-29] MEDS: THIAMINE HCL 100 MG TABLET (FP) PO SCH (21:18)
[2019-11-30 00:32] LABS: EPI CELLS 14.4 /HPF (0-5/HPF); HYALINE CASTS 19 /lpf (0-8); PH,URINE 5.5 (5.0-8.0); URINE APPEARANCE CLOUDY; URINE BACTERIA 500.7 /hpf (NEGATIVE); URINE BILIRUBIN NEGATIVE (NEGATIVE); URINE COLOR YELLOW; URINE GLUCOSE (UA) NEGATIVE (NEGATIVE); URINE KETONE TRACE (NEGATIVE); URINE LEUK ESTERASE 1+ (NEGATIVE); URINE NITRITE NEGATIVE (NEGATIVE); URINE PROTEIN NEGATIVE (NEGATIVE); URINE WBC 27 /hpf (0-5)
[2019-11-30 02:23] LABS: URINE CRYSTALS NONE SEEN /hpf; URINE RBC 4.9 /hpf (0-4)
[2019-11-30] MEDS ORDERED: METHADONE HCL 10 MG TABLET ONE (06:24)
[2019-11-30] MEDS ORDERED: METHADONE HCL 40 MG DISPERSABLE TABLET ONE (06:25)
[2019-11-30] MEDS: METHADONE 120 MG, METHADONE 10 MG PO SCH (06:37)
[2019-11-30] MEDS: PRENATAL VITAMINS W/ FOLIC ACID TABLET (FP) PO SCH (10:24)
[2019-11-30] MEDS: NICOTINE 14 MG/24 HOURS TOPICAL PATCH TD SCH (10:24)
[2019-11-30] MEDS: PANTOPRAZOLE 40 MG TABLET PO SCH (10:24)
[2019-11-30] MEDS: THIAMINE HCL 100 MG TABLET (FP) PO SCH (21:47)
[2019-11-30] MEDS ORDERED: PT OWN MED DRAWER 7, Y5N ONE (22:01)
[2019-11-30] MEDS: ALBUTEROL SO4 HFA INHALER IH PRN (22:02)
[2019-12-01] MEDS ORDERED: METHADONE HCL 10 MG TABLET ONE (06:25)
[2019-12-01] MEDS ORDERED: METHADONE HCL 40 MG DISPERSABLE TABLET ONE (06:25)
[2019-12-01] MEDS ORDERED: PT OWN MED DRAWER 7, Y5N ONE (06:48)
[2019-12-01] MEDS: METHADONE 120 MG, METHADONE 10 MG PO SCH (06:49)
[2019-12-01] MEDS: COLLOIDAL OATMEAL 1 BAR EACH TP PRN (06:50)
[2019-12-01] MEDS: AMMONIUM LACTATE 12% LOTION 225 GM BOTTLE TP PRN (06:50)
[2019-12-01] MEDS: NICOTINE 14 MG/24 HOURS TOPICAL PATCH TD SCH (10:23)
[2019-12-01] MEDS: PRENATAL VITAMINS W/ FOLIC ACID TABLET (FP) PO SCH (10:24)
[2019-12-01] MEDS: PANTOPRAZOLE 40 MG TABLET PO SCH (10:24)
[2019-12-01] MEDS: MELATONIN 5 MG TABLETS PO PRN (21:48)
[2019-12-01] MEDS: THIAMINE HCL 100 MG TABLET (FP) PO SCH (21:48)
[2019-12-02] MEDS ORDERED: METHADONE HCL 10 MG TABLET ONE (06:17)
[2019-12-02] MEDS ORDERED: METHADONE HCL 40 MG DISPERSABLE TABLET ONE (06:17)
[2019-12-02] MEDS: METHADONE 120 MG, METHADONE 10 MG PO SCH (06:41)
[2019-12-02] MEDS: AMMONIUM LACTATE 12% LOTION 225 GM BOTTLE TP PRN (06:43)
[2019-12-02] MEDS: PRENATAL VITAMINS W/ FOLIC ACID TABLET (FP) PO SCH (09:45)
[2019-12-02] MEDS: NICOTINE 14 MG/24 HOURS TOPICAL PATCH TD SCH (09:45)
[2019-12-02] MEDS: PANTOPRAZOLE 40 MG TABLET PO SCH (09:45)
[2019-12-02] MEDS: ALBUTEROL SO4 HFA INHALER IH PRN ×2 (09:47→21:17)
[2019-12-02] MEDS: MELATONIN 5 MG TABLETS PO PRN (21:17)
[2019-12-02] MEDS: THIAMINE HCL 100 MG TABLET (FP) PO SCH (21:17)
[2019-12-03] MEDS ORDERED: METHADONE HCL 40 MG DISPERSABLE TABLET ONE (06:16)
[2019-12-03] MEDS ORDERED: METHADONE HCL 10 MG TABLET ONE (06:16)
[2019-12-03] MEDS: METHADONE 120 MG, METHADONE 10 MG PO SCH (06:31)
[2019-12-03] MEDS: AMMONIUM LACTATE 12% LOTION 225 GM BOTTLE TP PRN (06:32)
[2019-12-03] MEDS: PRENATAL VITAMINS W/ FOLIC ACID TABLET (FP) PO SCH (10:24)
[2019-12-03] MEDS: NICOTINE 14 MG/24 HOURS TOPICAL PATCH TD SCH (10:24)
[2019-12-03] MEDS: PANTOPRAZOLE 40 MG TABLET PO SCH (10:24)
--- NOTE | 2019-12-03 11:01 | PN ---
[facility] Progress Note Note: result: Laboratory Tests 11/29/19 11/29/19 11/29/19 09:20 09:20 09:20 WBC 3.3 L RBC 4.10 Hgb 11.8 Hct 35.9 MCV 87.6 MCH 28.8 MCHC 32.9 RDW 14.2 Plt Count 328 MPV 8.8 Sodium 139 Potassium 4.0 Chloride 103 Carbon Dioxide 31 Anion Gap 5 L BUN 13.7 Creatinine 1.1 Est GFR (CKD-EPI)AfAm 63.20 Est GFR (CKD-EPI)NonAf 54.53 Random Glucose 108 H Calcium 9.3 Total Bilirubin 0.2 AST 26 ALT 18 Alkaline Phosphatase 110 Total Protein 7.1 Albumin 3.4 Urine Color Urine Appearance Urine pH Ur Specific [place] Urine Protein Urine Glucose (UA) Urine Ketones Urine Blood Urine Nitrite Urine Bilirubin Urine Urobilinogen Ur Leukocyte Esterase Urine WBC (Auto) Urine RBC (Auto) Urine Casts (Auto) U Pathogenic Cast Auto U Epithel Cells (Auto) Urine Crystals (Auto) Urine Bacteria (Auto) RPR Titer Nonreactive 11/29/19 11/29/19 11:00 23:15 WBC RBC Hgb Hct MCV MCH MCHC RDW Plt Count MPV Sodium Potassium Chloride Carbon Dioxide Anion Gap BUN Creatinine Est GFR (CKD-EPI)AfAm Est GFR (CKD-EPI)NonAf Random Glucose Calcium Total Bilirubin AST ALT Alkaline Phosphatase Total Protein Albumin Urine Color Dk yellow Yellow Urine Appearance Cloudy Cloudy Urine pH 5.5 5.5 Ur Specific [place] 1.026 1.034 Urine Protein Negative Negative Urine Glucose (UA) Negative Negative Urine Ketones Negative Trace H Urine Blood 2+ H Negative Urine Nitrite Negative Negative Urine Bilirubin Negative Negative Urine Urobilinogen 0.2 1.0 Ur Leukocyte Esterase 1+ H 1+ H Urine WBC (Auto) 25 27 Urine RBC (Auto) 2 4.9 Urine Casts (Auto) 26 19 U Pathogenic Cast Auto Non seen None seen U Epithel Cells (Auto) 22.0 14.4 Urine Crystals (Auto) Non seen None seen Urine Bacteria (Auto) 350.0 500.7 RPR Titer Microbiology 11/30/19 11:40 Urine - Urine Clean Catch Urine Culture - Final NO GROWTH OBTAINED
--- NOTE | 2019-12-03 16:01 | PN ---
[facility] Progress Note Note: Pt c/o itchy irritation around her navel that's been happening for a year. Vital Signs - 24 hr 12/03/19 12/03/19 00:34 06:30 Temperature 97.1 F L Pulse Rate 65 Respiratory 16 16 Rate Blood Pressure 101/58 L Alert o x 3 nad oob ambulating with steady gait skin:Dry around navel, no open sore, redness or swelling. A/P Dry skin Hydrocortisone cream 1% apply to affected area BID D/C Protonix Pepcid 20 mg po BID
[2019-12-03] MEDS: FAMOTIDINE 20 MG TABLET PO SCH (21:47)
[2019-12-03] MEDS: THIAMINE HCL 100 MG TABLET (FP) PO SCH (21:47)
[2019-12-04] MEDS ORDERED: METHADONE HCL 10 MG TABLET ONE (05:56)
[2019-12-04] MEDS ORDERED: METHADONE HCL 40 MG DISPERSABLE TABLET ONE (05:57)
[2019-12-04] MEDS: METHADONE 120 MG, METHADONE 10 MG PO SCH (06:31)
[2019-12-04] MEDS: NICOTINE 14 MG/24 HOURS TOPICAL PATCH TD SCH (10:32)
[2019-12-04] MEDS: FAMOTIDINE 20 MG TABLET PO SCH ×2 (10:32→21:52)
[2019-12-04] MEDS: PRENATAL VITAMINS W/ FOLIC ACID TABLET (FP) PO SCH (10:32)
[2019-12-04] MEDS: AMMONIUM LACTATE 12% LOTION 225 GM BOTTLE TP PRN (10:34)
[2019-12-04] MEDS ORDERED: HYDROCORTISONE 1% TOPICAL CREAM 30 GM TUBE TP PRN (10:36)
[2019-12-04] MEDS ORDERED: PT OWN MED DRAWER 7, Y5N ONE ×2 (11:14→16:14)
[2019-12-04] MEDS: MELATONIN 5 MG TABLETS PO PRN (21:52)
[2019-12-04] MEDS: THIAMINE HCL 100 MG TABLET (FP) PO SCH (21:52)
[2019-12-05] MEDS ORDERED: METHADONE HCL 10 MG TABLET ONE (06:24)
[2019-12-05] MEDS ORDERED: METHADONE HCL 40 MG DISPERSABLE TABLET ONE (06:25)
[2019-12-05] MEDS: METHADONE 120 MG, METHADONE 10 MG PO SCH (06:45)
[2019-12-05] MEDS ORDERED: ALBUTEROL SO4 0.083% IH SOL 2.5 MG/3 ML VIAL.NEB. NEB PRN (08:49)
[2019-12-05] MEDS: FAMOTIDINE 20 MG TABLET PO SCH ×2 (09:30→22:07)
[2019-12-05] MEDS: PRENATAL VITAMINS W/ FOLIC ACID TABLET (FP) PO SCH (09:30)
[2019-12-05] MEDS: NICOTINE 14 MG/24 HOURS TOPICAL PATCH TD SCH (09:30)
--- NOTE | 2019-12-05 14:54 | PREP.REFER ---
HIV PrEP/PEP - PrEP HIV Risk Assessment When was your last HIV test?: 2016 HIV Test offered: Refused (states she has the same partner for 17 years, does not use condoms, feels she does not need the test) Are you concerned about any sexual encounters past 6 months?: Yes Have you had a STI in the last 6 months?: Yes Have you shared needles or other equipment?: No (patient uses needle exchange) Are you interested in daily medication to help prevent HIV?: No (Patient feels she has no risk, and does not need PrEP.) Recommendation: Consider PrEP referral
[2019-12-05] MEDS ORDERED: SODIUM PHOSPHATE/NA BIPHOS 133 ML ENEMA PR ONE (15:30)
[2019-12-05] MEDS: THIAMINE HCL 100 MG TABLET (FP) PO SCH (22:07)
[2019-12-06] MEDS ORDERED: METHADONE HCL 10 MG TABLET PO SCH (06:00)
[2019-12-06] MEDS ORDERED: METHADONE HCL 40 MG DISPERSABLE TABLET ONE (06:46)
[2019-12-06] MEDS ORDERED: METHADONE HCL 10 MG TABLET ONE (06:46)
[2019-12-06] MEDS: METHADONE 120 MG, METHADONE 10 MG PO SCH (07:07)
[2019-12-06] MEDS: PRENATAL VITAMINS W/ FOLIC ACID TABLET (FP) PO SCH (10:22)
[2019-12-06] MEDS: FAMOTIDINE 20 MG TABLET PO SCH ×2 (10:22→21:44)
[2019-12-06] MEDS: NICOTINE 14 MG/24 HOURS TOPICAL PATCH TD SCH (10:22)
--- NOTE | 2019-12-06 11:38 | DS ---
[facility] Rehab Discharge Summary - [facility] Rehab Discharge Summary Admission Date: 11/28/19 Discharge Date: 12/07/19 - History Present History: MMTP, Opioid dependence Additional Comments: Pt is a 58 y/o female with a hx of HILLARY admitted to rehab and scheduled for discharge on 12/07/19. Pt met with her counselor and has been referred to aftercare follow up after discharge. Pt goes to [facility] for Methadone treatment on [address] [place] [address] and will be returning to the clinic after discharge. Pt has primary care with Dr. Hollis at [facility] on [address] [place] [address]. Pertinent Past History: Asthma GERD Bilateral Leg Pain hx s/p Cellulitis and Abscess of Bilateral legs - Discharge Physical Exam Vital Signs: Vital Signs Temperature 98.5 F 12/06/19 07:00 Pulse Rate 74 12/06/19 07:00 Respiratory Rate 16 12/06/19 07:00 Blood Pressure 104/66 12/06/19 07:00 O2 Sat by Pulse Oximetry (%) Alert o x 3 nad oob ambulating with steady gait cardiac:s1 s2,rrr lungs:cta,bobbi. abdomen:+bs,soft,nt,nd,justino-umbilical rash resolved extremities/skin:no edema,skin lesion-lichenified skin tissue with no open skin- dry skin improved. Pertinent Admission Physical Exam Findings: Laboratory Tests 11/29/19 11/29/19 11/29/19 09:20 09:20 09:20 WBC 3.3 L RBC 4.10 Hgb 11.8 Hct 35.9 MCV 87.6 MCH 28.8 MCHC 32.9 RDW 14.2 Plt Count 328 MPV 8.8 Sodium 139 Potassium 4.0 Chloride 103 Carbon Dioxide 31 Anion Gap 5 L BUN 13.7 Creatinine 1.1 Est GFR (CKD-EPI)AfAm 63.20 Est GFR (CKD-EPI)NonAf 54.53 Random Glucose 108 H Calcium 9.3 Total Bilirubin 0.2 AST 26 ALT 18 Alkaline Phosphatase 110 Total Protein 7.1 Albumin 3.4 Urine Color Urine Appearance Urine pH Ur Specific [place] Urine Protein Urine Glucose (UA) Urine Ketones Urine Blood Urine Nitrite Urine Bilirubin Urine Urobilinogen Ur Leukocyte Esterase Urine WBC (Auto) Urine RBC (Auto) Urine Casts (Auto) U Pathogenic Cast Auto U Epithel Cells (Auto) Urine Crystals (Auto) Urine Bacteria (Auto) RPR Titer Nonreactive 11/29/19 11/29/19 11:00 23:15 WBC RBC Hgb Hct MCV MCH MCHC RDW Plt Count MPV Sodium Potassium Chloride Carbon Dioxide Anion Gap BUN Creatinine Est GFR (CKD-EPI)AfAm Est GFR (CKD-EPI)NonAf Random Glucose Calcium Total Bilirubin AST ALT Alkaline Phosphatase Total Protein Albumin Urine Color Dk yellow Yellow Urine Appearance Cloudy Cloudy Urine pH 5.5 5.5 Ur Specific [place] 1.026 1.034 Urine Protein Negative Negative Urine Glucose (UA) Negative Negative Urine Ketones Negative Trace H Urine Blood 2+ H Negative Urine Nitrite Negative Negative Urine Bilirubin Negative Negative Urine Urobilinogen 0.2 1.0 Ur Leukocyte Esterase 1+ H 1+ H Urine WBC (Auto) 25 27 Urine RBC (Auto) 2 4.9 Urine Casts (Auto) 26 19 U Pathogenic Cast Auto Non seen None seen U Epithel Cells (Auto) 22.0 14.4 Urine Crystals (Auto) Non seen None seen Urine Bacteria (Auto) 350.0 500.7 RPR Titer Microbiology 11/30/19 11:40 Urine - Urine Clean Catch Urine Culture - Final NO GROWTH OBTAINED - Treatment Discharge Condition: Discharge condition good Hospital Course: Rehabilitated safely and responded well CD aftercare referral accepted to. Pt referred back to her [facility] on [address] [place] [address] to continue with CD aftercare. Pt participated in groups and individual sessions while in treatment. - Medication Discharge Medications: Ambulatory Orders Albuterol Sulfate Inhaler - [Ventolin Hfa Inhaler -] 1 - 2 inh PO Q4H 08/02/17 Ranitidine HCl [Zantac] 150 mg PO DAILY 11/28/19 - Medication-Assisted Treatment (MAT) Medication-Assisted Treatment (MAT): No - Discharge Instructions Diet, activity, other medical instructions: Diet:Regular Activity: oob ad silver Other medical instructions:follow up with CD aftercare at [facility] as scheduled follow up with your primary care provider Dr. Hao Hollis on 12/21/19 as scheduled. Primary Care Location: [address] [address] Primary Care Provider: Dr. Hao Hollis Appointment made for: December 21, 2017 at 11:00 A.M - Diagnosis (1) Opioid use disorder Status: Chronic (2) Chronic dermatitis Status: Chronic (3) Methadone maintenance therapy patient Status: Chronic (4) GERD (gastroesophageal reflux disease) Status: Chronic Qualifiers: Esophagitis presence: esophagitis presence not specified Qualified Code(s) : K21.9 - Gastro-esophageal reflux disease without esophagitis (5) Asthma Status: Chronic Qualifiers: Asthma severity: mild Asthma persistence: intermittent Asthma complication type: uncomplicated Qualified Code(s): J45.20 - Mild intermittent asthma, uncomplicated - Follow-up Referral Minutes to complete discharge: 30 - AMA Did Patient Leave Against Medical Advice: No
[2019-12-06] MEDS ORDERED: ALBUTEROL SO4 HFA INHALER IH PRN (15:48)
[2019-12-06] MEDS: MELATONIN 5 MG TABLETS PO PRN (21:44)
[2019-12-06] MEDS: THIAMINE HCL 100 MG TABLET (FP) PO SCH (21:44)
[2019-12-07] MEDS ORDERED: METHADONE HCL 40 MG DISPERSABLE TABLET ONE (05:44)
[2019-12-07] MEDS ORDERED: METHADONE HCL 10 MG TABLET ONE (05:44)
[2019-12-07] MEDS: METHADONE 120 MG, METHADONE 10 MG PO SCH (07:01)
[2019-12-07] MEDS: COLLOIDAL OATMEAL 1 BAR EACH TP PRN (07:02)
[2019-12-07 07:22] VITALS: BP 93/52; PULSE 68; TEMP 97.9
[2019-12-07] MEDS: NICOTINE 14 MG/24 HOURS TOPICAL PATCH TD SCH (09:09)
[2019-12-07] MEDS: PRENATAL VITAMINS W/ FOLIC ACID TABLET (FP) PO SCH (09:09)
[2019-12-07] MEDS: FAMOTIDINE 20 MG TABLET PO SCH (09:09)
== END 2019-12-07 09:19 | disposition home or self-care (01) | DRG 772 ==
LOC: YASAS 14:08 → Y3E 17:42
PROVIDERS: ADMIT Allergy & Immunology; ATTEND Allergy & Immunology
PROC: HZ42ZZZ Group Counseling for Substance Abuse Treatment, Cognitive-Behavioral (ICD-10-PCS; principal; 2019-11-28)
DX: F11.20 Opioid dependence, uncomplicated (principal); F14.20 Cocaine dependence, uncomplicated; F17.210 Nicotine dependence, cigarettes, uncomplicated; J45.20 Mild intermittent asthma, uncomplicated; K21.9 Gastro-esophageal reflux disease without esophagitis; L30.9 Dermatitis, unspecified; L85.3 Xerosis cutis; L03.115 Cellulitis of right lower limb; L03.116 Cellulitis of left lower limb; I73.9 Peripheral vascular disease, unspecified; Z86.19 Personal history of other infectious and parasitic diseases
CPT/HCPCS: 36415; 80053; 81003; 85027; 86593; 87086; 90732; 94640; G0009; Q2036

== ENCOUNTER 2020-07-23 18:50 | Inpatient (IN) | payer OTHER ==
[2020-07-23] MEDS ORDERED: SODIUM CHLORIDE 0.9% 500 ML INFUS.BAG IV ONE (19:30)
[2020-07-23] MEDS ORDERED: ACETAMINOPHEN 1000 MG/100 ML VIAL (NON FORMULARY) IVPB ONE (19:30)
[2020-07-23] MEDS ORDERED: ACETAMINOPHEN INJECTION 100 ML IVPB ONE (20:02)
[2020-07-23] MEDS ORDERED: ONDANSETRON 4 MG/2 ML VIAL IVPUSH ONE (20:09)
[2020-07-23] MEDS ORDERED: FAMOTIDINE 20 MG/50 ML IVPB 20 MG/50 ML MG IVPB ONE ×2 (20:09→20:40)
--- NOTE | 2020-07-23 20:10 | PDOC ---
History of Present Illness - General Chief Complaint: Pain, Acute Stated Complaint: ABDOMINAL PAIN Time Seen by Provider: 07/23/20 19:29 Past History - Medical History Allergies/Adverse Reactions: Allergies Allergy/AdvReac Type Severity Reaction Status Date / Time No Known Allergies Allergy Verified 07/23/20 20:36 Home Medications: Ambulatory Orders Unobtainable 07/23/20 Asthma: Yes Cardiac Disorders: No COPD: No Diabetes: No GI Disorders: No Disorders: No HTN: No Kidney Stones: No Seizures: No - Surgical History Abdominal Surgery: Yes (ECTOPIC ) Appendectomy: No Cardiac Surgery: No Cholecystectomy: No Lung Surgery: No Neurologic Surgery: No Orthopedic Surgery: No - Reproductive History PID: No - Immunization History Immunization Up to Date: No - Psycho-Social/Smoking History Smoking History: Current every day smoker Have you smoked in the past 12 months: Yes Number of Cigarettes Smoked Daily: 10 Information on smoking cessation initiated: No 'Breaking Loose' booklet given: 11/28/19 - Substance Abuse Hx (Audit-C & DAST Scrn) How often the patient has a drink containing alcohol: Monthly or less Score: In Men: 4 or > Positive; In Women: 3 or > Positive: 1 Screen Result (Pos requires Nsg. Audit-10AR): Negative In the last yr the pt used illegal drug/Rx for NonMed reason: Yes Score: Yes response is considered Positive: 1 Screen Result (Positive result requires Nsg. DAST-10): Positive *Physical Exam - Vital Signs Last Vital Signs Temp Pulse Resp BP Pulse Ox 98.0 F 106 H 20 158/88 96 07/23/20 19:22 07/23/20 19:22 07/23/20 19:22 07/23/20 19:22 07/23/20 19:22 ED Treatment Course - LABORATORY CBC & Chemistry Diagram: 07/23/20 19:50 07/23/20 19:50 - RADIOLOGY Radiology Studies Ordered: Category Date Time Status ABDOMEN & PELVIS CT WITH CONTR [CT] Stat CT Scan 07/23/20 19:39 Ordered CHEST X-RAY PORTABLE* [RAD] Stat Radiology 07/23/20 19:30 Ordered Medical Decision Making - Medical Decision Making 07/23/20 20:10 HPI: 59yo F hx asthma, hepatitis C, GERD, heroin abuse (IV and snorting, last used 1/2 bag a few hours ago), ?alcohol abuse (pt states drinks but denies abuse/daily drinking), and s/p surgery for ectopic (denies other surgeries) presents from home c/o sudden onset this PM severe "tightness" type constant diffuse but more R-sided nonradiating abdominal pain with associated nausea and NBNB emesis x1. Endorses difficulty urinating; denies hematuria, dysuria, urgency/frequency. Denies diarrhea, constipation (LBM this AM), blood in stool, headache, dizziness, N/T, wekaness, CP, SOB, cough, sick contacts, recent travel, vaginal bleeding, vaginal/genital sx, back/flank pain. Endorses mechanical fall yesterday. PCP - [facility] ROS: Constitutional: Positive for sleepiness (states not sleeping well). Negative for chills, fever, fatigue, diaphoresis. HENT: Negative for sore throat, rhinorrhea, congestion. Eyes: Negative for visual disturbance. Respiratory: Negative for shortness of breath, cough, and wheezing. Cardiovascular: Negative for chest pain, palpitations, and leg swelling. Gastrointestinal: Positive for abdominal pain, nausea, and vomiting. Negative for blood in stool, constipation, diarrhea. Genitourinary: Positive for difficulty urinating. Negative for dysuria, flank pain, and hematuria. Musculoskeletal: Negative for myalgias, back pain, and neck pain. Skin: Negative for rash. Neurological: Negative for light-headedness, dizziness, vertigo, syncope, weakness, numbness and headaches. Psychiatric/Behavioral: Positive for heroin abuse. Negative for behavioral problems and confusion. PE: Gen: Sleepy but easily arousable, NAD, uncomfortable-appearing, frail, thin HEENT: PERRL, EOMI, dry MM, NCAT. No conjunctival pallor. Sclera are non- icteric. Oropharynx is clear. CV: Regular rate and rhythm. No murmurs, rubs, or gallops. PULM: No resp distress. CTAB, no wheezes, rales, or rhonchi. ABD: soft, ND, diffuse tenderness to light palpation of abdomen with guarding and rebound, soft, no CVA tenderness. BACK: No TTP of c/t/l-spine. No step-offs or deformities. MSK: No bony deformities. 2+ pulses in all extremities. NEURO: Sleepy but easily arousable, oriented x3. PERRL. CN 2-12 intact. 5/5 strength in all extremities. Sensation to light touch intact in all extremities. No abnormal nystagmus. EXTREMITIES: No cyanosis. No clubbing. No edema. No calf tenderness. PSYCH: Normal mood and thought pattern. SKIN: Warm and dry. Normal capillary refill. No rashes. No jaundice. MDM: 59yo F hx asthma, hepatitis C, GERD, heroin abuse (IV and snorting, last used 1/2 bag a few hours ago), ?alcohol abuse (pt states drinks but denies abuse/daily drinking), and s/p surgery for ectopic (denies other surgeries) presents from home with abdominal pain, nausea, and vomiting xfew hours. Tachycardic, otherwise hemodynamically stable, afebrile Ddx: intox, withdrawal, cholelithiasis/cystitis, appendicitis, hepatitis, pancreatitis, colitis, diverticulitis, mesenteric ischemia, UTI, urinary retention, ACS/MD, infection, metabolic derangement, anemia -POCUS EFAST: peritoneal free fluid present, no pericardial effusion, normal lung sliding b/l, L-sided pleural effusion, large bladder, multiple gallstones present -EKG -CT head/c-spine/chest/abdomen/pelvis -CBC,CMP,Coags,T&S,Lact,Lipase,UA/UC,Utox,Alcohol,Acetaminophen,Salicylate -IVF -Pain management -Dispo: pending w/u, likely admit 07/23/20 21:10 Labs reviewed. +opiates, methadone, cocaine EKG reviewed: normal sinus rhythm with sinus arrhythmia, 62bpm, normal axis, normal intervals, QTc 458ms, no TWIs, no ST elevations or depressions 07/23/20 21:25 Asleep. Arousable. Sleeping soundly but endorses pain when wake her up. []CTs and reassess Signed out to Dr Rogers and night team. Discharge - Discharge Information Problems reviewed: Yes Clinical Impression/Diagnosis: Opioid use disorder, Abdominal pain - Follow up/Referral Referrals: Hao Hollis MD [Primary Care Provider] - - Patient Discharge Instructions - Post Discharge Activity
[2020-07-23 20:33] LABS: BASO % 0.3 % (0-2.0); HEMATOCRIT 37.1 % (32.4-45.2); HEMOGLOBIN 12.3 GM/dL (10.7-15.3); LYMPH % 18.4 % (8-40); MCH 29.2 pg (25.7-33.7); MCHC 33.1 g/dl (32.0-36.0); MEAN CELL VOLUME 88.2 fl (80-96); MEAN PLT VOLUME 8.1 fl (7.5-11.1); MONO % 4.3 % (3.8-10.2); PLATELET COUNT 359 K/MM3 (134-434); RBC 4.21 M/mm3 (3.60-5.2); RDW 14.6 % (11.6-15.6); WHITE BLOOD COUNT 5.1 K/mm3 (4.0-10.0)
[2020-07-23 20:34] LABS: URINE APPEARANCE CLEAR; URINE BILIRUBIN NEGATIVE (NEGATIVE); URINE COLOR YELLOW; URINE GLUCOSE (UA) NEGATIVE (NEGATIVE); URINE KETONE NEGATIVE (NEGATIVE); URINE LEUK ESTERASE NEGATIVE (NEGATIVE); URINE NITRITE NEGATIVE (NEGATIVE); URINE PROTEIN NEGATIVE (NEGATIVE)
--- NOTE | 2020-07-23 20:34 | PDOC ---
Documentation entered by Sugey Vogel SCRIBE, acting as scribe for Martina Cooper DO. Martina Cooper DO: This documentation has been prepared by the genoe, Sugey Vogel SCRIBE, under my direction and personally reviewed by me in its entirety. I confirm that the documentation accurately reflects all work, treatment, procedures, and medical decision making performed by me. Attending Attestation - Resident Resident Name: Leslye Rodriguez - ED Attending Attestation I have performed the following: I have examined & evaluated the patient, The case was reviewed & discussed with the resident, I agree w/resident's findings & plan, Exceptions are as noted - HPI HPI: 07/23/20 19:32 Patient is a 59 year old female with a significant past medical history of asthma, hepatitis C, previous surgery for ectopic , substance abuse (last use a few hours ago), and possible alcohol abuse, who presents to the ED with abdominal pain and associated nausea and vomiting x1 day. Patient described her abdominal discomfort as a "tightness" which is more towards her right side and does not radiate. Patient said she had one episode of NBNB vomiting. Patient also reports a mechanical fall from yesterday. Patient endorses: difficulty urinating Patient denies: hematuria, dysuria, urgency, frequency, or any other related symptoms. Allergies: NKDA - Physicial Exam PE: 07/23/20 20:31 Gen: aaox3, uncomfortable, moaning in pain heent: EOMI, Pupils 2mm b/l, dry mm, posterior pharynx clear neck: supple heart: +s1s2 reg lungs: cta b/l abd: soft, RUQ and R flank ttp, epigastric ttp, distended bladder with ttp ext: no c/c/e, pulses intact - Critical Care Time Total Critical Care Time: 60 Critical Care Statement: The care of this patient involved high complexity decision making to prevent further life threatening deterioration of the patient's condition and/or to evaluate & treat vital organ system(s) failure or risk of failure. - Medical Decision Making 07/23/20 20:32 a/p: 59yo female who uses heroin at home - IVDA and snorts with abd pain -abd pain x hours, had a bm without relief of pain -1 episode of nbnb vomiting -R sided abd pain -abd ttp is severe -will send labs, will send for ct c/a/p -POCUS fast + FF in RUQ, LUQ, L pleural effusion -hx of hep c -will give pain control, nausea control -distended bladder, will place huang given abd pain 07/23/20 21:11 uds + cocaine, methadone, opiates no elevated wbc 07/23/20 21:14 lactate 1 07/23/20 22:03 labs reviewed and stable pt in ct 07/23/20 23:[address] Polk, pt with pneumoperitoneum on CT case discussed with Dr. Dover, will see patient in consult NPO, NGT, Zosyn, ICU admission pt has been taking motrin lately for pain, also uses cocaine, heroin, methadone case discussed with the ICU resident, accepts pt to icu 07/23/20 23:20 pt updated, agrees with the plan Heart Score/ECG Review - ECG Intrepretation Comment:: 07/23/20 21:05 sinus at 62, nl axis, nl interval, no acute st/t wave findings Discharge - Discharge Information Problems reviewed: Yes Clinical Impression/Diagnosis: Perforation bowel, Pneumoperitoneum, Opioid use disorder, Cocaine use, Methadone maintenance therapy patient Condition: Critical - Admission Yes - Follow up/Referral - Patient Discharge Instructions - Post Discharge Activity
[2020-07-23 20:41] LABS: INR 0.97 (0.83-1.09); PROTHROMBIN TIME (PATIENT) 11.5 SEC (9.7-13.0)
[2020-07-23 20:44] LABS: ACTIVATED PTT 32.3 SECONDS (25.2-36.5)
[2020-07-23 20:52] LABS: PHENCYCLIDINE,URINE NEGATIVE ng/ml (CUTOFF=25); URINE BARBITURATES NEGATIVE ng/ml (CUTOFF=200); URINE BENZODIAZEPINES NEGATIVE ng/ml (CUTOFF=200)
[2020-07-23 20:54] LABS: URINE AMPHETAMINES NEGATIVE ng/ml (CUTOFF=500)
[2020-07-23 21:09] LABS: COCAINE, UR POSITIVE ng/ml (CUTOFF=300); METHADONE, UR POSITIVE ng/ml (CUTOFF=300); OPIATES, URI POSITIVE ng/ml (CUTOFF=300)
[2020-07-23 21:15] LABS: ALBUMIN 4.1 g/dl (3.4-5.0); ALK PHOS 111 U/L (45-117); ANION GAP 6 MMOL/L (8-16); BILIRUBIN,TOTAL 0.2 mg/dL (0.2-1); BLOOD UREA NITROGEN 11.4 mg/dL (7-18); CALCIUM 9.7 mg/dL (8.5-10.1); CHLORIDE 97 mmol/L (98-107); CO2 32 mmol/L (21-32); CREATININE 0.9 mg/dL (0.55-1.3); GLUCOSE,RANDOM 99 mg/dL (74-106); LIPASE 45 U/L (73-393); SGOT/AST 25 U/L (15-37); SGPT/ALT 27 U/L (13-61); SODIUM 135 mmol/L (136-145); TOT PROT 8.4 g/dl (6.4-8.2)
--- NOTE | 2020-07-23 22:11 | PDOC ---
*Physical Exam - Vital Signs Last Vital Signs Temp Pulse Resp BP Pulse Ox 98.0 F 63 16 148/82 99 07/23/20 19:22 07/23/20 20:48 07/23/20 20:48 07/23/20 20:48 07/23/20 20:49 ED Treatment Course - LABORATORY CBC & Chemistry Diagram: 07/23/20 19:50 07/23/20 19:50 - ADDITIONAL ORDERS Additional order review: Laboratory Results 07/23/20 07/23/20 07/23/20 20:10 20:10 19:50 PT with INR INR PTT (Actin FS) Sodium Potassium Chloride Carbon Dioxide Anion Gap BUN Creatinine Est GFR (CKD-EPI)AfAm Est GFR (CKD-EPI)NonAf Random Glucose Lactic Acid Calcium Total Bilirubin AST ALT Alkaline Phosphatase Creatine Kinase Creatine Kinase Index CK-MB (CK-2) Troponin I Total Protein Albumin Lipase Urine Color Yellow Urine Appearance Clear Urine pH 7.0 D Ur Specific [place] 1.014 Urine Protein Negative Urine Glucose (UA) Negative Urine Ketones Negative Urine Blood Negative Urine Nitrite Negative Urine Bilirubin Negative Urine Urobilinogen 1.0 Ur Leukocyte Esterase Negative Salicylates 1.8 L Opiates Screen Positive A* Methadone Screen Positive A* Acetaminophen < 2.0 Barbiturate Screen Negative Phencyclidine Screen Negative Ur Amphetamines Screen Negative MDMA (Ecstasy) Screen Negative Benzodiazepines Screen Negative Cocaine Screen Positive A* U Marijuana (THC) Screen Negative Alcohol, Quantitative Blood Type Antibody Screen 07/23/20 07/23/20 07/23/20 19:50 19:50 19:50 PT with INR INR PTT (Actin FS) Sodium 135 L Potassium 4.0 Chloride 97 L Carbon Dioxide 32 Anion Gap 6 L BUN 11.4 Creatinine 0.9 Est GFR (CKD-EPI)AfAm 79.98 Est GFR (CKD-EPI)NonAf 69.01 Random Glucose 99 Lactic Acid 1.0 Calcium 9.7 Total Bilirubin 0.2 AST 25 ALT 27 Alkaline Phosphatase 111 Creatine Kinase 178 Creatine Kinase Index 0.8 CK-MB (CK-2) 1.5 Troponin I < 0.02 Total Protein 8.4 H Albumin 4.1 Lipase 45 L Urine Color Urine Appearance Urine pH Ur Specific [place] Urine Protein Urine Glucose (UA) Urine Ketones Urine Blood Urine Nitrite Urine Bilirubin Urine Urobilinogen Ur Leukocyte Esterase Salicylates Opiates Screen Methadone Screen Acetaminophen Barbiturate Screen Phencyclidine Screen Ur Amphetamines Screen MDMA (Ecstasy) Screen Benzodiazepines Screen Cocaine Screen U Marijuana (THC) Screen Alcohol, Quantitative < 3 Blood Type O POSITIVE Antibody Screen Negative 07/23/20 19:50 PT with INR 11.50 INR 0.97 PTT (Actin FS) 32.3 Sodium Potassium Chloride Carbon Dioxide Anion Gap BUN Creatinine Est GFR (CKD-EPI)AfAm Est GFR (CKD-EPI)NonAf Random Glucose Lactic Acid Calcium Total Bilirubin AST ALT Alkaline Phosphatase Creatine Kinase Creatine Kinase Index CK-MB (CK-2) Troponin I Total Protein Albumin Lipase Urine Color Urine Appearance Urine pH Ur Specific [place] Urine Protein Urine Glucose (UA) Urine Ketones Urine Blood Urine Nitrite Urine Bilirubin Urine Urobilinogen Ur Leukocyte Esterase Salicylates Opiates Screen Methadone Screen Acetaminophen Barbiturate Screen Phencyclidine Screen Ur Amphetamines Screen MDMA (Ecstasy) Screen Benzodiazepines Screen Cocaine Screen U Marijuana (THC) Screen Alcohol, Quantitative Blood Type Antibody Screen 07/23/20 19:50 RBC 4.21 MCV 88.2 MCHC 33.1 RDW 14.6 MPV 8.1 Neutrophils % 76.0 D Lymphocytes % 18.4 D Monocytes % 4.3 Eosinophils % 1.0 Basophils % 0.3 - Medications Given in the ED: ED Medications Discontinued Medications Generic Name Dose Route Start Last Admin Trade Name Freq PRN Reason Stop Dose Admin Acetaminophen 1,000 mg 07/23/20 19:30 07/23/20 20:24 Ofirmev Injection - IVPB 07/23/20 19:31 1,000 mg ONCE ONE Administration Famotidine/Sodium Chloride 20 mg in 50 mls @ 100 mls/hr 07/23/20 20:09 07/23/20 20:47 Pepcid 20 Mg Premixed Ivpb - IVPB 07/23/20 20:38 100 mls/hr ONCE ONE Administration Ondansetron HCl 4 mg 07/23/20 20:09 07/23/20 20:47 Zofran Injection IVPUSH 07/23/20 20:10 4 mg NOW ONE Administration Sodium Chloride 1,000 ml 07/23/20 19:30 07/23/20 20:25 Normal Saline - IV 07/23/20 19:31 1,000 ml ONCE ONE Administration Medical Decision Making - Medical Decision Making 07/23/20 22:05 Sign out received from Dr. Brinning during shift change. 59F w/hx asthma, HepC, GERD, opiate use disorder (last use 1/2 bag heroin today) p/w acute onset abdominal pain today. No focal area of tenderness on exam. Last wnl. Pending: CT imaging Dispo: Discharge pending imaging, reassessment 07/23/20 22:42 Emergent callback from radiology - Imaging notable for pneumoperitoneum concerning for intestinal perforation. Case discussed with Dr. Dover (Surgery). Plan for NG tube placement, Zosyn, and ICU admission. Case discussed with ICU team, patient admitted to ICU under Dr. Apple. Discharge - Discharge Information Problems reviewed: Yes Clinical Impression/Diagnosis: Perforation bowel, Pneumoperitoneum, Opioid use disorder, Cocaine use, Methadone maintenance therapy patient Condition: Critical - Admission Yes - Follow up/Referral - Patient Discharge Instructions - Post Discharge Activity
[2020-07-23] MEDS ORDERED: PIPERACILLIN/TAZOB 4.5 GM 4.5 GM in DEXTROSE 5%-WATER 100 ML IVPB ONE (22:49)
[2020-07-23] MEDS ORDERED: PIPERACILLIN/TAZOB 4.5 GM 4.5 GM/100 ML BAG IVPB ONE (23:18)
[2020-07-24] MEDS ORDERED: LIDOCAINE HCL 1%, 10 MG/ML (20ML VIAL) ONE (00:15)
[2020-07-24] MEDS ORDERED: LIDOCAINE VISCOUS 2% ORAL/TOP 20 ML UNIT-DOSE CUP ONE (00:17)
[2020-07-24] MEDS ORDERED: morphine CARPU-JECT 2 MG/1 ML DISP.SYRIN IVPUSH ONE (00:25)
[2020-07-24] MEDS ORDERED: MORPHINE SULFATE 2 MG/ML VIAL ONE (00:28)
[2020-07-24] MEDS ORDERED: ONDANSETRON 4 MG/2 ML VIAL IVPUSH ONE (01:03)
--- NOTE | 2020-07-24 01:49 | HP ---
CHIEF COMPLAINT: PCP: HISTORY OF PRESENT ILLNESS: 59 yo female with PMH of GERD, HepC, Asthma, Ectopic , Substance Abuse (Heroin IV, Cocaine). Pt BIBEMS for sudden onset abdominal pain. Pt says the abdominal pain is right sided, non-radiating, tight. Pt also suffered a mechanical fall yesterday. She endorsed nausea, vomiting, and difficulty urinating. She denies fevers, chills, sob, cp,k dysuria, hematuria, frequency, bloody stools. ER course was notable for: Fluids, Tylenol, Zosyn, Zofran, Pepcid Social History: Smoking: Yes, daily Alcohol: Yes Drugs: Heroin/Cocaine Allergies No Known Allergies Allergy (Verified 07/23/20 20:36) REVIEW OF SYSTEMS: Constitutional: No Fever, No Chills, No Fatigue, No Malaise ENT/Mouth: No Nasal Congestion, No Hoarseness, No sore throat, No Rhinorrhea, No Swallowing Difficulty Eyes: No Eye Pain, No Vision Changes Cardiovascular: No Chest Pain, No SOB, No Dyspnea, No Edema, No Palpitations Respiratory: No Cough, No Wheezing, No Dyspnea Gastrointestinal: Abd Pain, Nausea, NBNB Vomiting, No Diarrhea, No Constipation, Genitourinary: Difficulty urinating, No Dysuria, No Urinary Frequency, No Hematuria, No Urinary Incontinence, No Urgency, No Flank Pain Musculoskeletal: No Arthralgias, No Myalgias, No Joint Swelling, No Joint Stiff ness, No Back Pain, No Neck Pain, No Injury History Skin: No Skin Lesions, No Pruritis, No Hair Changes, No Breast/Skin Changes, No Nipple Discharge Neuro: No Weakness, No Numbness, No Paresthesias, No Loss of Consciousness, No Syncope, No Dizziness, No Headache, No Coordination Changes, No Recent Falls Psych: No Anxiety/Panic, No Depression, No Insomnia, No Personality Changes, No Delusions, No Rumination, Substance abuse. Heme/Lymph: No Bruising, No Bleeding, Endocrine: No Polyuria, No Polydipsia, No Temperature Intolerance PHYSICAL EXAMINATION Vital Signs - 24 hr 07/23/20 07/23/20 07/23/20 19:22 20:48 20:49 Temperature 98.0 F Pulse Rate 106 H Pulse Rate [ 63 Radial] Respiratory 20 16 Rate Blood Pressure 158/88 Blood Pressure 148/82 [Left Arm] O2 Sat by Pulse 96 100 99 Oximetry (%) GENERAL: Awake, alert, and fully oriented, uncomfortable and in pain HEAD: Normal with no signs of trauma. EYES: Pupils equal, round and reactive to light, extraocular movements intact, sclera anicteric, conjunctiva clear. No lid lag. EARS, NOSE, THROAT: Ears normal, nares patent, Moist mucous membranes. NECK: Normal range of motion, supple without lymphadenopathy, JVD, or masses. LUNGS: Breath sounds equal, clear to auscultation bilaterally. No wheezes, and no crackles. No accessory muscle use. HEART: Regular rate and rhythm, normal S1 and S2 without murmur, rub or gallop. ABDOMEN: Soft, Epigastric pain, RUQ pain, R flank pain, MUSCULOSKELETAL: Normal range of motion at all joints. No bony deformities or tenderness. No CVA tenderness. NEUROLOGICAL: Cranial nerves II-XII intact. Normal speech. Normal gait. PSYCHIATRIC: Cooperative. Good eye contact. Appropriate mood and affect. SKIN: Warm, dry, normal turgor, no rashes or lesions noted, normal capillary refill. Laboratory Results - last 24 hr 07/23/20 07/23/20 07/23/20 19:50 19:50 19:50 WBC 5.1 RBC 4.21 Hgb 12.3 Hct 37.1 MCV 88.2 MCH 29.2 MCHC 33.1 RDW 14.6 Plt Count 359 MPV 8.1 Absolute Neuts (auto) 3.9 Neutrophils % 76.0 D Lymphocytes % 18.4 D Monocytes % 4.3 Eosinophils % 1.0 Basophils % 0.3 Nucleated RBC % 0 PT with INR 11.50 INR 0.97 PTT (Actin FS) 32.3 Sodium 135 L Potassium 4.0 Chloride 97 L Carbon Dioxide 32 Anion Gap 6 L BUN 11.4 Creatinine 0.9 Est GFR (CKD-EPI)AfAm 79.98 Est GFR (CKD-EPI)NonAf 69.01 Random Glucose 99 Lactic Acid Calcium 9.7 Total Bilirubin 0.2 AST 25 ALT 27 Alkaline Phosphatase 111 Creatine Kinase 178 Creatine Kinase Index 0.8 CK-MB (CK-2) 1.5 Troponin I < 0.02 Total Protein 8.4 H Albumin 4.1 Lipase 45 L Urine Color Urine Appearance Urine pH Ur Specific [place] Urine Protein Urine Glucose (UA) Urine Ketones Urine Blood Urine Nitrite Urine Bilirubin Urine Urobilinogen Ur Leukocyte Esterase Salicylates Opiates Screen Methadone Screen Acetaminophen Barbiturate Screen Phencyclidine Screen Ur Amphetamines Screen MDMA (Ecstasy) Screen Benzodiazepines Screen Cocaine Screen U Marijuana (THC) Screen Alcohol, Quantitative < 3 SARS-CoV-2 (PCR) Blood Type Antibody Screen 07/23/20 07/23/20 07/23/20 19:50 19:50 19:50 WBC RBC Hgb Hct MCV MCH MCHC RDW Plt Count MPV Absolute Neuts (auto) Neutrophils % Lymphocytes % Monocytes % Eosinophils % Basophils % Nucleated RBC % PT with INR INR PTT (Actin FS) Sodium Potassium Chloride Carbon Dioxide Anion Gap BUN Creatinine Est GFR (CKD-EPI)AfAm Est GFR (CKD-EPI)NonAf Random Glucose Lactic Acid 1.0 Calcium Total Bilirubin AST ALT Alkaline Phosphatase Creatine Kinase Creatine Kinase Index CK-MB (CK-2) Troponin I Total Protein Albumin Lipase Urine Color Urine Appearance Urine pH Ur Specific [place] Urine Protein Urine Glucose (UA) Urine Ketones Urine Blood Urine Nitrite Urine Bilirubin Urine Urobilinogen Ur Leukocyte Esterase Salicylates 1.8 L Opiates Screen Methadone Screen Acetaminophen < 2.0 Barbiturate Screen Phencyclidine Screen Ur Amphetamines Screen MDMA (Ecstasy) Screen Benzodiazepines Screen Cocaine Screen U Marijuana (THC) Screen Alcohol, Quantitative SARS-CoV-2 (PCR) Blood Type O POSITIVE Antibody Screen Negative 07/23/20 07/23/20 07/23/20 20:10 20:10 23:27 WBC RBC Hgb Hct MCV MCH MCHC RDW Plt Count MPV Absolute Neuts (auto) Neutrophils % Lymphocytes % Monocytes % Eosinophils % Basophils % Nucleated RBC % PT with INR INR PTT (Actin FS) Sodium Potassium Chloride Carbon Dioxide Anion Gap BUN Creatinine Est GFR (CKD-EPI)AfAm Est GFR (CKD-EPI)NonAf Random Glucose Lactic Acid Calcium Total Bilirubin AST ALT Alkaline Phosphatase Creatine Kinase Creatine Kinase Index CK-MB (CK-2) Troponin I Total Protein Albumin Lipase Urine Color Yellow Urine Appearance Clear Urine pH 7.0 D Ur Specific [place] 1.014 Urine Protein Negative Urine Glucose (UA) Negative Urine Ketones Negative Urine Blood Negative Urine Nitrite Negative Urine Bilirubin Negative Urine Urobilinogen 1.0 Ur Leukocyte Esterase Negative Salicylates Opiates Screen Positive A* Methadone Screen Positive A* Acetaminophen Barbiturate Screen Negative Phencyclidine Screen Negative Ur Amphetamines Screen Negative MDMA (Ecstasy) Screen Negative Benzodiazepines Screen Negative Cocaine Screen Positive A* U Marijuana (THC) Screen Negative Alcohol, Quantitative SARS-CoV-2 (PCR) Negative Blood Type Antibody Screen ASSESSMENT/PLAN: 59 yo female with PMH of GERD, HepC, Asthma, Ectopic , Substance Abuse (Heroin IV, Cocaine). Pt presented with abdominal pain, nausea, vomiting. Found to have a gastric ulcer perforation with pneumoperitoneum & free fluid #Neuro -Alert/oriented -Intoxicated- heroin use 30 min prior to arrival - UDS positive for opiates, methadone, cocaine. #CV - Vitals stable - MAP 111 - Tachycardic 110s, resolved after 1L bolus #Pulm -Hx of Asthma -Albuterol/Ipratropium (PRN) #GI - Hx of HepC - CT Abd/Pelvis- GI perforation at gastric antrum, pneumoperitoneum, free fluid - NPO - NGT refused - Zosyn (3.375, TID) - Metronidazole (500, TID) - Pantoprazole (40, BID) - Gen Surg Consult: [facility]- will assess in morning # -Difficulty urinating w/o hematuria/frequency/dysuria -UA negative #FEN -Electrolyte Checks - NS 42 #Heme - WBC 17, (5.1) - Hb wnl (12.3) #ID - Zosyn (3.375, TID) - Metronidazole (500, TID) - ID Consult Dmitriy DVT Prophylaxis:- SCD Family Medical History Family History: As Documented Visit type - Emergency Visit Emergency Visit: Yes ED Registration Date: 07/23/20 Care time: The patient presented to the Emergency Department on the above date and was hospitalized for further evaluation of their emergent condition. - New Patient This patient is new to me today: Yes Date on this admission: 07/25/20 - Critical Care Critical Care patient: No ATTENDING PHYSICIAN STATEMENT I saw and evaluated the patient. I reviewed the resident's note and discussed the case with the resident. I agree with the resident's findings and plan as documented. SUBJECTIVE: OBJECTIVE: ASSESSMENT AND PLAN:
[2020-07-24 03:04] VITALS: BMI 18.9
[2020-07-24] MEDS ORDERED: FLU VACCINE (FLULAVAL) PF 60 MCG/0.5 ML SYRINGE 2020-2021 IM ONE (03:04)
[2020-07-24] MEDS ORDERED: ACETAMINOPHEN 1000 MG/100 ML VIAL (NON FORMULARY) IVPB PRN (04:30)
[2020-07-24] MEDS ORDERED: morphine SULFATE 4 MG/ML VIAL IVPUSH PRN (04:35)
[2020-07-24] MEDS ORDERED: SODIUM CHLORIDE 1,000 ML IV SCH ×2 (05:30→10:31)
[2020-07-24] MEDS ORDERED: PIPERACILLIN/TAZOB 3.375 GM 3.375 GM in DEXTROSE 5%-WATER - 50 ML IVPB SCH ×2 (05:38→10:00)
[2020-07-24] MEDS ORDERED: ALBUTEROL SO4 2.5/IPRATROPIUM 0.5 INH SOL 3 ML VIAL.NEB. NEB PRN ×2 (05:44→10:31)
[2020-07-24] MEDS ORDERED: ONDANSETRON 4 MG/2 ML VIAL IVPUSH PRN (06:38)
[2020-07-24 06:55] LABS: BASO % 0.1 % (0-2.0); HEMATOCRIT 36.7 % (32.4-45.2); LYMPH % 3.2 % (8-40); MCH 28.4 pg (25.7-33.7); MCHC 32.7 g/dl (32.0-36.0); MEAN PLT VOLUME 7.8 fl (7.5-11.1); MONO % 1.9 % (3.8-10.2); NEUT % 94.8 % (42.8-82.8); PLATELET COUNT 352 K/MM3 (134-434); RBC 4.22 M/mm3 (3.60-5.2); RDW 14.3 % (11.6-15.6)
[2020-07-24 07:00] LABS: INR 1.01 (0.83-1.09); PROTHROMBIN TIME (PATIENT) 11.9 SEC (9.7-13.0)
[2020-07-24 07:02] LABS: ACTIVATED PTT 21.6 SECONDS (25.2-36.5)
--- OUTSIDE RECORDS SUMMARY | 2020-07-24 07:25 | XMS ---
:1960 Author Organization [facility] Support Name Relationship Address Phone UE, UNEMPLOYED Unavailable Unavailable Unavailable UE Unavailable Unavailable Unavailable TRINITY CONNELLY [address] [place] [id number] TRINITY CONNELLY Unavailable [address] [place] [address] Re-disclosure Warning The records that you are about to access may contain information from federally- assisted alcohol or drug abuse programs. If such information is present, then the following federally mandated warning applies: This information has been disclosed to you from records protected by federal confidentiality rules (42 CFR part 2). The federal rules prohibit you from making any further disclosure of this information unless further disclosure is expressly permitted by the written consent of the person to whom it pertains or as otherwise permitted by 42 CFR part 2. A general authorization for the release of medical or other information is NOT sufficient for this purpose. The Federal rules restrict any use of the information to criminally investigate or prosecute any alcohol or drug abuse patient.The records that you are about to access may contain highly sensitive health information, the redisclosure of which is protected by Article 27-F of the [facility] Public Health law. If you continue you may haveaccess to information: Regarding HIV / AIDS; Provided by facilities licensed or operated by the [facility] Office of Mental Health; or Provided by the [facility] Office for People With Developmental Disabilities. If such information is present, then the following [facility] mandated warning applies: This information has been disclosed to you from confidential records which are protected by state law. State law prohibits you from making any further disclosure of this information without the specific written consent of the person to whom it pertains, or as otherwise permitted by law. Any unauthorized further disclosure in violation of state law may result in a fine or [place] [facility] sentence or both. A general authorization for the release of medical or other information is NOT sufficient authorization for further disclosure. Allergies and Adverse Reactions Type Description Substance Reaction Status Data Source(s ) No Known No Known Allergies No Known eCW3 ( [facility] Allergies Allergies [facility]) Encounters Encounter Providers Location Date Indications Data Source(s ) Outpatient [facility] Care 05/17/2019 eCW3 ([facility] A28 12:00:00 AM Health Care) EDT - 05/17/2019 12:00:00 AM EDT Medications Medication Brand Start Product Dose Route Administrative Pharmacy [facility] Indications Reaction Description Data Name Date Form Instructions Instructions Source(s) 200 ACTUAT Ventol 2.0 active Ventolin HFA eCW3 Albuterol in HFA 2016 {puff 108 (90 (Hud son 0.09 108 12:00: s_as_ Base) [facility] MG/ACTUAT (90 00 AM neede MCG/ACT Healt h Metered Base) EDT d} Care) Dose MCG/AC Inhaler T [Ventolin] Ventolin HFA 108 (90 Base) MCG/ACT silver Silvad 1.0 active Silvadene 1 eCW3 sulfadiazin sherlyn 1 2016 {appl % (Hudso n e 10 MG/ML % 12:00: icati [facility] Topical 00 AM on_to Health Cream EDT _affe Care) [Silvadene] cted_ Silvadene 1 area} % Chantix UNK 07/18/ active Chantix eCW3 Starting 2011 Starting ([facility] 12:00: Month Preston Gina er 0.5 MG X 11 00 AM 0.5 MG X 11 Health & 1 MG X 42 EDT & 1 MG X 42 C are) Chantix UNK 07/18/ suspend Chantix eCW3 Starting 2011 ed Starting ([facility] 12:00: Month Preston Gina er 0.5 MG X 11 00 AM 0.5 MG X 11 Health & 1 MG X 42 EDT & 1 MG X 42 C are) Multi For UNK 09/01/ active Multi For e CW3 Her 50+ 200 2010 Her 50+ 200 ( Allison mg 12:00: mg [facility] 00 AM Health EST Care) Multi For UNK 09/01/ active Multi For e CW3 Her 50+ 200 2010 Her 50+ 200 ( Allison mg 12:00: mg [facility] 00 AM Health EST Care) Zantac 150 UNK 1.0 active Zantac 150 eCW3 MG 2010 {caps MG (Allison 12:00: ule} [facility] 00 AM Health EST Care) Zantac 150 UNK .0 active Zantac 150 eCW3 MG 2010 {caps MG (Allison 12:00: ule} [facility] 00 AM Health EST Care) Zantac 150 UNK .0 active Zantac 150 eCW3 mg 2010 {caps mg (Allison 12:00: ule} [facility] 00 AM Health EST Care) NEBULIZER UNK 09/01/ active NEBULIZER e CW3 2009 (Allison 12:00: [facility] 00 AM Health EST Care) NEBULIZER UNK 09/01/ active NEBULIZER e CW3 2009 ([facility]ison 12:00: [facility] 00 AM Health EST Care) Albuterol Albute 3.0 active Albuterol eCW3 0.21 MG/ML [facility] 2009 {ml_a Sulfate 0.63 (Allison Inhalant Sulfat 12:00: s_nee MG/3ML Rive r Solution e 0.63 00 AM ded} Health Albuterol MG/3ML EST Care) Sulfate 0.63 MG/3ML Albuterol Albute 3.0 active Albuterol eCW3 0.21 MG/ML [facility] 2009 {ml_a Sulfate 0.63 ([facility] Inhalant Sulfat 12:00: s_nee MG/3ML Rive r Solution e 0.63 00 AM ded} Health Albuterol MG/3ML EST Care) Sulfate 0.63 MG/3ML Suboxone UNK 1.0 active Suboxone 8-2 e CW3 8-2 MG {tabl MG ([facility]ison et_un [place] der_t Health he_to Care) ngue_ and_a llow_ to_di ssolv e} Suboxone UNK 1.0 active Suboxone 8-2 e CW3 8-2 MG {tabl MG ([facility]ison et_un [facility] der_t Health he_to Care) ngue_ and_a llow_ to_di ssolv e} Methadone Methad 12.0 active Methadone e CW3 Hydrochlori one {tabl HCl 10 MG (H udson de 10 MG HCl 10 et} [facility] Oral Tablet MG Health Methadone Care) HCl 10 MG Insurance Providers Payer name Policy type Policy ID Covered Covered green party's Policy P enrique / Coverage green party ID relationship to Ponce Inf ormation type ponce [place] [id number] [place] [id number] HMO METHADONE SP MAINTENANCE PROGRAM [employer] [id number] SP [id number] HEALTH-MVP Problems, Conditions, and Diagnoses Code Display Name Description Problem Type Effective Data Sour ce(s) Dates Z72.0 Tobacco abuse Tobacco abuse Problem 05/17/2019 eCW3 (Hu dson 12:00:00 AM [facility] EDT Care) F43.21 Adjustment Adjustment Problem 05/17/2019 eCW3 ([facility] disorder with disorder with 12:00:00 AM [facility] ealth depressed mood depressed mood EDT Care) K21.9 Chronic GERD Chronic GERD Problem 04/25/2018 eCW3 ([facility] on 12:00:00 AM [facility] EDT Care) J45.20 Mild intermittent Asthma, mild Problem 01/09/2017 eCW3 ([facility] asthma intermittent 12:00:00 AM [facility] EDT Care) I73.9 Peripheral Peripheral Problem 12/25/2016 eCW3 ([facility] vascular disease vascular disease 12:00:00 AM [facility] EST Care) I83.10 Varicose veins of Venous stasis Problem 12/25/2016 eCW3 ([facility] lower extremity dermatitis 12:00:00 AM [facility]th with inflammation EST Care) I83.009 Varicose veins of Venous stasis Problem 12/25/2016 eCW3 ([facility] lower extremity ulcer 12:00:00 AM [facility]th with ulcer EST Care) Social History Code Duration Value Status Description Data Source(s ) Smoking 05/17/2019 Current Smoker completed Current Smoker eCW3 ( [facility] 12:00:00 AM [facility] Health Ca re) Current Smoker completed Current Smoker eCW3 ( [facility]) Vital Signs ID Date Data Source UNK Name Value Range Interpretation Code Description Data Source(s) Diastolic blood 64 mm[Hg] 64 mm[Hg] eCW3 ([facility]) Systolic blood 106 mm[Hg] 106 mm[Hg] eCW3 ([facility] pressure [facility]) Body temperature 98.1 [degF] 98.1 [degF] eCW3 ( [facility]) Heart rate 20 /min 20 /min eCW3 ([facility]) Body mass index 23.23 kg/m2 23.23 kg/m2 eCW3 (F[facility] aquino (BMI) [Ratio] [facility]) Body weight 125 [lb_av] 125 [lb_av] eCW3 ([facility]) Body height 61.5 [in_i] 61.5 [in_i] eCW3 ([facility])
[2020-07-24 07:31] LABS: POTASSIUM 3.9 mmol/L (3.5-5.1)
[2020-07-24] MEDS ORDERED: PROPOFOL 20 ML ONE ×2 (07:36)
[2020-07-24] MEDS ORDERED: fentaNYL CITRATE 250 MCG/5 ML VIAL ONE (07:36)
[2020-07-24] MEDS ORDERED: SUCCINYLCHOLINE CHLORIDE 200 MG/10 ML SYRINGE ONE ×2 (07:37→09:09)
[2020-07-24] MEDS ORDERED: ROCURONIUM BROMIDE 50 MG/5 ML SYRINGE ONE (07:37)
[2020-07-24 07:44] LABS: ALBUMIN 3.2 g/dl (3.4-5.0); BILIRUBIN,TOTAL 0.7 mg/dL (0.2-1); BLOOD UREA NITROGEN 9.2 mg/dL (7-18); CALCIUM 9.1 mg/dL (8.5-10.1); CREATININE 0.8 mg/dL (0.55-1.3); MAGNESIUM 2.2 mg/dL (1.8-2.4); PHOSPHOROUS 3.8 mg/dL (2.5-4.9); TOT PROT 6.9 g/dl (6.4-8.2)
--- NOTE | 2020-07-24 07:52 | CON.ID ---
Consult Consult Specialty:: infectious diseases Referred by:: icu Reason for Consultation:: abd pain,perforation - History of Present Illness Chief Complaint: abd pain History of Present Illness: 59 yo female with PMH of GERD, HepC, Asthma, Ectopic , Substance Abuse (Heroin IV, Cocaine). Pt BIBEMS for sudden onset abdominal pain. Pt says the abdominal pain is right sided, non-radiating, tight. Pt also suffered a mechanical fall yesterday. She endorsed nausea, vomiting, and difficulty urinating. She denies fevers, chills, sob, cp,k dysuria, hematuria, frequency, bloody stools. patient was seen by surgical tem and the plan is to take the patient to the operating room - History Source History Provided By: Patient, Medical Record Limitations to Obtaining History: Poor Historian - Past Medical History Pulmonary: Yes: Asthma ...: No Psych: Yes: Addictions (On methadone maintenance program) - Alcohol/Substance Use Hx Alcohol Use: No - Smoking History Smoking history: Current every day smoker Have you smoked in the past 12 months: Yes Aproximately how many cigarettes per day: 10 Home Medications - Allergies Allergies/Adverse Reactions: Allergies Allergy/AdvReac Type Severity Reaction Status Date / Time No Known Allergies Allergy Verified 07/23/20 20:36 - Home Medications Home Medications: Ambulatory Orders Unobtainable 07/23/20 Review of Systems - Review of Systems Constitutional: reports: Other Eyes: reports: No Symptoms HENT: reports: No Symptoms Neck: reports: No Symptoms Cardiovascular: reports: No Symptoms Respiratory: reports: No Symptoms Gastrointestinal: reports: Abdominal Pain, Other Genitourinary: reports: No Symptoms Musculoskeletal: reports: No Symptoms Integumentary: reports: No Symptoms Neurological: reports: No Symptoms Endocrine: reports: No Symptoms Hematology/Lymphatic: reports: No Symptoms Psychiatric: reports: No Symptoms Physical Exam Vital Signs: Vital Signs Temperature 98.4 F 07/23/20 22:48 Pulse Rate 69 07/24/20 06:00 Respiratory Rate 17 07/24/20 06:00 Blood Pressure 118/60 07/24/20 06:00 O2 Sat by Pulse Oximetry (%) 96 07/24/20 06:00 Constitutional: Yes: Calm, Mild Distress Eyes: Yes: Conjunctiva Clear HENT: Yes: Atraumatic, Normocephalic Neck: Yes: Supple, Trachea Midline Cardiovascular: Yes: Regular Rate and Rhythm Respiratory: Yes: Regular, CTA Bilaterally Gastrointestinal: Yes: Tenderness, Other (absent bowel sounds) Musculoskeletal: Yes: WNL Extremities: Yes: WNL Neurological: Yes: Alert, Oriented Psychiatric: Yes: Alert, Oriented Labs: CBC, BMP 07/24/20 06:10 07/24/20 06:10 Imaging - Results Chest X-ray: Report Reviewed, Image Reviewed Cat Scan: Report Reviewed, Image Reviewed Assessment/Plan Perforated Pyloric Ulcer s/p Jean Patch Closure Polysubstance Abuse Methadone Maintenance Asthma GERD Hep C Smoker -plan will start on abx and antifungal close watch for or rest as per the team cc 40 min
--- NOTE | 2020-07-24 07:54 | CONSULT ---
- Consultation REQUESTING PROVIDER: Allison BACON CONSULT REQUEST: We have been asked to surgically evaluate this patient for abdominal pain Hospitalist:Cristóbal Apple HISTORY OF PRESENT ILLNESS:CTSP who is a 59 year old female who presents to the ED with abdominal pain and associated nausea and vomiting x1 day. Patient described her abdominal discomfort as a "tightness" which is more towards her right side and does not radiate. Patient said she had one episode of NBNB vomiting. She hasnot been eating b/o the pain and has been mary NSAID's for "years ". Allergies: NKDA PMHx: asthma/hepatitis C/substance abuse/EtOH abuse PSHx: ectopic Home Medications Medication Instructions Recorded Unobtainable 07/23/20 Allergies Allergy/AdvReac Type Severity Reaction Status Date / Time No Known Allergies Allergy Verified 07/23/20 20:36 REVIEW OF SYSTEMS: CONSTITUTIONAL: Absent: fever, chills, diaphoresis, generalized weakness, malaise, loss of appetite, weight change CARDIOVASCULAR: Absent: chest pain, syncope, palpitations, irregular heart rate, lightheadedness, peripheral edema RESPIRATORY: Absent: cough, shortness of breath, dyspnea with exertion, wheezing, stridor, hemoptysis GASTROINTESTINAL: Present: abdominal pain, abdominal distension, nausea, vomiting, diarrhea, constipation, melena, hematochezia GENITOURINARY: Absent: dysuria, frequency, urgency, hesitancy, hematuria, flank pain, genital pain MUSCULOSKELETAL: Absent: myalgia, arthralgia, joint swelling, back pain, neck pain SKIN: Absent: rash, itching, pallor HEMATOLOGIC/IMMUNOLOGIC: Absent: easy bleeding, easy bruising, lymphadenopathy NEUROLOGIC: Absent: headache, focal weakness, paresthesias, dizziness, unsteady gait, seizure, mental status changes, bladder or bowel incontinence PSYCHIATRIC: Absent: anxiety, depression, suicidal or homicidal ideation, hallucinations. PHYSICAL EXAM: GENERAL: Awake, alert, and fully oriented, in acute distress. HEAD: Normal with no signs of trauma. EYES: sclera anicteric, conjunctiva clear. NECK: Normal ROM, supple without lymphadenopathy, JVD, or masses. ABDOMEN: Soft, diffusely tender, distended and tympanitic, absent bowel sounds, guarding and rebound are present, no masses. No organomegaly. No hernias. MUSCULOSKELETAL: Normal ROM at all joints. No bony deformities or tenderness. No CVA tenderness. UPPER EXTREMITIES: 2+ pulses, warm, well-perfused. No cyanosis. Cap refill <2 seconds. No peripheral edema. LOWER EXTREMITIES: 2+ pulses, warm, well-perfused. No calf tenderness. No peripheral edema. NEUROLOGICAL: Normal speech, gait not observed. PSYCH: Cooperative. Good eye contact. Appropriate mood and affect. SKIN: Warm, dry, normal turgor, no rashes or lesions noted. Vital Signs Temperature 98.4 F 07/23/20 22:48 Pulse Rate 69 07/24/20 06:00 Respiratory Rate 17 07/24/20 06:00 Blood Pressure 118/60 07/24/20 06:00 O2 Sat by Pulse Oximetry (%) 96 07/24/20 06:00 Lab Results WBC 17.0 K/mm3 (4.0-10.0) H 07/24/20 06:10 RBC 4.22 M/mm3 (3.60-5.2) 07/24/20 06:10 Hgb 12.0 GM/dL (10.7-15.3) 07/24/20 06:10 Hct 36.7 % (32.4-45.2) 07/24/20 06:10 MCV 87.0 fl (80-96) 07/24/20 06:10 MCHC 32.7 g/dl (32.0-36.0) 07/24/20 06:10 RDW 14.3 % (11.6-15.6) 07/24/20 06:10 Plt Count 352 K/MM3 (134-434) 07/24/20 06:10 INR 1.01 (0.83-1.09) 07/24/20 06:10 Sodium 135 mmol/L (136-145) L 07/24/20 06:10 Potassium 3.9 mmol/L (3.5-5.1) 07/24/20 06:10 Chloride 100 mmol/L (98-107) 07/24/20 06:10 Carbon Dioxide 32 mmol/L (21-32) 07/23/20 19:50 Anion Gap 6 MMOL/L (8-16) L 07/23/20 19:50 BUN 11.4 mg/dL (7-18) 07/23/20 19:50 Creatinine 0.9 mg/dL (0.55-1.3) 07/23/20 19:50 Random Glucose 99 mg/dL (74-106) 07/23/20 19:50 Calcium 9.7 mg/dL (8.5-10.1) 07/23/20 19:50 Blood Type O POSITIVE 07/23/20 19:50 Antibody Screen Negative 07/23/20 19:50 CT scan a/p reviewed and c/w pneumoperitoneum IMP: perforated viscus PLAN: For exploratory laparotomy and repair of perforated viscus; most liely perforated ulcer; if perforated bowel will require bowel resection and possible ostomy which may be permanent and/or temporary; r/b/t/a/'s d/w the patiuent and informed consent obtained. Corbin Dover MD FACS
[2020-07-24] MEDS ORDERED: MIDAZOLAM HCL 2 MG/2 ML SINGLE DOSE VIAL ONE (08:05)
[2020-07-24] MEDS ORDERED: KETAMINE HCL 200 MG/20 ML VIAL ONE (08:06)
[2020-07-24] MEDS ORDERED: PIPERACILLIN/TAZOBACTAM 3.375 GM VIAL IVPB ONE ×3 (08:25→16:17)
[2020-07-24] MEDS ORDERED: NEOSTIGMINE METHYLSULFATE 0.5 MG/ML - 10 ML MDV ONE (08:50)
[2020-07-24 08:52] LABS: ANISOCYTOSIS 0; MACROCYTOSIS 0; PLATELET ESTIMATE NORMAL
[2020-07-24] MEDS ORDERED: LIDOCAINE HCL 2% JELLY (5 ML/TUBE) ONE (08:58)
[2020-07-24] MEDS ORDERED: DEXAMETHASONE SOD PHOSPHATE 4 MG/1 ML VIAL ONE (08:58)
[2020-07-24] MEDS ORDERED: KETOROLAC TROMETHAMINE 30 MG/1 ML VIAL ONE ×2 (08:58→09:09)
--- NOTE | 2020-07-24 09:55 | EKG ---
Test Reason : Blood Pressure : / mmHG Vent. Rate : 062 BPM Atrial Rate : 062 BPM P-R Int : 154 ms QRS Dur : 082 ms QT Int : 452 ms P-R-T Axes : 072 079 058 degrees QTc Int : 458 ms POOR DATA QUALITY, INTERPRETATION MAY BE ADVERSELY AFFECTED NORMAL SINUS RHYTHM WITH SINUS ARRHYTHMIA NORMAL ECG WHEN COMPARED WITH ECG OF 13-JUL-2017 01:38, NONSPECIFIC T WAVE ABNORMALITY, IMPROVED IN ANTERIOR LEADS Confirmed by ANDREY PHAM MD ([id number]) on 07/24/2020 9:55:05 AM Referred By: Confirmed By:ANDREY PHAM MD
[2020-07-24] MEDS ORDERED: FLUCONAZOLE 200 MG/NS 100 ML IVPB SCH (10:00)
[2020-07-24] MEDS ORDERED: PANTOPRAZOLE SODIUM 40 MG VIAL IVPUSH SCH (10:00)
[2020-07-24] MEDS ORDERED: MUPIROCIN 2% TOPICAL OINTMENT FOR DECOLONIZATION NS SCH (10:00)
--- NOTE | 2020-07-24 10:04 | OP ---
Operative Note - Note: Operative Date: 07/24/20 Pre-Operative Diagnosis: perforated viscus Operation: Jean patch closure of perforated pyloric channel ulcer Findings: perforated anterior pyloric channel ulcer; no abscess; minimal phlegmon Surgeon: Corbin Dover Packaging Line Operator: Roman Viramontes Anesthesiologist/SUSTAINABLE PRODUCTS MARKETING MANAGER: Nasir Shane Anesthesia: General Specimens Removed: none Estimated Blood Loss (mls): 15
--- NOTE | 2020-07-24 10:20 | SURG ---
Surgery Casino Controller Note Casino Controller: Roman Viramontes PA-C (Suzy) Date of Service: 07/24/20 Diagnosis: perforated viscus Procedure: Operation: Jean patch closure of perforated pyloric channel ulcer I was present for the entirety of the operative procedure. For further detail, please refer to operative report. Visit type - Case Type Case Type: ED Admission - Emergency Emergency Visit: Yes ED Registration Date: 07/23/20 Care time: The patient presented to the Emergency Department on the above date and was hospitalized for further evaluation of their emergent condition. - New patient This patient is new to me today: Yes Date on this admission: 07/24/20 - Critical Care Critical Care patient: No
--- NOTE | 2020-07-24 10:59 | PN ---
Teaching Attending Note Name of Resident: Anabell Castillo ATTENDING PHYSICIAN STATEMENT I saw and evaluated the patient. I reviewed the resident's note and discussed the case with the resident. I agree with the resident's findings and plan as documented. SUBJECTIVE: Pt seen and examined in the ICU. s/p jeb patch repair of pyloric ulcer perforation. OBJECTIVE: Vital Signs Period Temp Pulse Resp BP Sys/Hardwick Pulse Ox Last 24 Hr 98.0 F-98.4 F 59-106 16-21 108-158/49-88 96-100 Intake & Output 07/21/20 07/22/20 07/23/20 07/24/20 23:59 23:59 23:59 23:59 Intake Total 600 Output Total 60 3215 Balance -60 -2615 Weight 48.563 kg Gen: somnolent but arousable Heart: RRR Lung: decreased breath sounds at the bases Abd: soft, dressings clean Ext: no edema CBC, BMP 07/24/20 06:10 07/24/20 06:10 Active Medications Acetaminophen (Ofirmev Injection -) 1,000 mg IVPB Q6H PRN PRN Reason: PAIN LEVEL 1-5 Albuterol/Ipratropium (Duoneb -) 1 amp NEB ONCE PRN PRN Reason: ASTHMA Chlorhexidine Gluconate (Hibiclens For Decolonization -) 1 applic TP HS ERLIN Fluconazole (Diflucan 100 Mg/Ns Premixed Ivpb -) 50 mls @ 50 mls/hr IVPB DAILY ERLIN Metronidazole (Flagyl 500mg Premixed Ivpb -) 500 mg in 100 mls @ 100 mls/hr IVPB Q8H-IV ERLIN Piperacillin Sod/Tazobactam (Sod 3.375 gm/ Dextrose) 50 mls @ 100 mls/hr IVPB Q8H-IV ERLIN; Protocol Stop: 07/25/20 09:59 Sodium Chloride (Normal Saline -) 1,000 mls @ 42 mls/hr IV ASDIR ERLIN Last Admin: 07/24/20 10:49 Dose: 42 mls/hr Documented by: Piperacillin Sod/Tazobactam (Sod 3.375 gm/ Dextrose) 50 mls @ 100 mls/hr IVPB Q8H-IV ERLIN; Protocol Morphine Sulfate (Morphine Sulfate) 4 mg IVPUSH Q4H PRN PRN Reason: PAIN LEVEL 6-10 Mupirocin (Bactroban Ointment (For Decolonization) -) 1 applic NS BID [facility] Stop: 07/29/20 09:59 Ondansetron HCl (Zofran Injection) 4 mg IVPUSH Q6H PRN PRN Reason: NAUSEA AND/OR VOMITING Pantoprazole Sodium (Protonix Iv) 40 mg IVPUSH BID [facility] ASSESSMENT AND PLAN: Perforated Pyloric Ulcer s/p Jeb Patch Closure POD 0 Polysubstance Abuse Methadone Maintenance Asthma GERD Hep C Smoker - pain control - incentive spirometry - continue antibiotics - empiric antifungals - f/u cultures - NPO - IVF - monitor urine output, creatinine - DVT prophylaxis
--- NOTE | 2020-07-24 11:17 | OP ---
DATE OF OPERATION: 07/24/2020 PREOPERATIVE DIAGNOSIS: Perforated viscus. POSTOPERATIVE DIAGNOSIS: Perforated pyloric channel ulcer. PROCEDURE: Jean patch closure of perforated pyloric channel ulcer. SURGEON: Corbin Dover MD CATALOGUE ILLUSTRATOR: Roman Viramontes PA-C ANESTHESIA: General. OPERATIVE FINDINGS: There was an anterior 5-mm perforation at the pyloric channel. There was no intraabdominal abscess. There was minimal phlegmon, and the rest of the findings were unremarkable. DESCRIPTION OF PROCEDURE: The patient was placed on the operating table in the supine position and the induction of general anesthesia and placement of sequential compression devices on the patient's lower extremities, the abdomen was prepped with ChloraPrep and draped in sterile fashion. Timeout was taken and the peritoneal cavity entered through a midline incision using the electrocautery. The previously noted findings were observed. Four 3-0 silk sutures were placed through the area of the perforation, and then a portion of the greater omentum of the transverse colon was mobilized and laid over the site of the perforation. The sutures were tied, and then another piece of omentum mobilized over the closure and similarly sutured in place with 3-0 silk suture. Irrigation was carried out and hemostasis secured, and then the peritoneal cavity was closed in a single layer using continuous 0 loop Maxon. Subcutaneous tissue was irrigated and then the skin edges reapproximated using the surgical alda. Dry sterile dressings were placed and the procedure terminated at this point and the patient aroused from general anesthesia and transferred back to the medical intensive care unit in stable condition awake and alert. ESTIMATED BLOOD LOSS: 15 mL. REPLACEMENTS: Crystalloid. DRAINS: None. SPECIMENS: None. COUNTS: At the completion of the procedure, the needle, instrument, and sponge counts were verified as correct. I, Corbin Dover, was physically present in the operating room from the time the patient was placed on the operating table until she was transferred back to the medical intensive care unit in my accompaniment. MD MICHAELA Astorga/[id number] MTDD
--- NOTE | 2020-07-24 11:39 | PN ---
Physical Exam: SUBJECTIVE: Patient seen and examined post op. Patient still sedated but arousable to stimuli. OBJECTIVE: Vital Signs Temp Pulse Resp BP Pulse Ox 98.2 F 65 18 161/75 100 07/24/20 11:00 07/24/20 11:00 07/24/20 11:00 07/24/20 11:00 07/24/20 11:00 GENERAL: still sedated post op, responsive to stimuli HEAD: Normal with no signs of trauma. EYES: PERRL ENT: NG tube in place NECK: supple. LUNGS: CTA BL HEART: RRR ABDOMEN: tender to palpation, incision site dressed EXTREMITIES: warm, well-perfused, no edema. NEUROLOGICAL: unable to fully assess SKIN: no rashes or lesions noted Laboratory Last Values WBC 17.0 K/mm3 (4.0-10.0) H 07/24/20 06:10 RBC 4.22 M/mm3 (3.60-5.2) 07/24/20 06:10 Hgb 12.0 GM/dL (10.7-15.3) 07/24/20 06:10 Hct 36.7 % (32.4-45.2) 07/24/20 06:10 MCV 87.0 fl (80-96) 07/24/20 06:10 MCH 28.4 pg (25.7-33.7) 07/24/20 06:10 MCHC 32.7 g/dl (32.0-36.0) 07/24/20 06:10 RDW 14.3 % (11.6-15.6) 07/24/20 06:10 Plt Count 352 K/MM3 (134-434) 07/24/20 06:10 MPV 7.8 fl (7.5-11.1) 07/24/20 06:10 Absolute Neuts (auto) 16.1 K/mm3 (1.5-8.0) H 07/24/20 06:10 Neutrophils % 94.8 % (42.8-82.8) H D 07/24/20 06:10 Neutrophils % (Manual) 89.9 % (42.8-82.8) H 07/24/20 06:10 Band Neutrophils % 0.0 % 07/24/20 06:10 Lymphocytes % 3.2 % (8-40) L D 07/24/20 06:10 Lymphocytes % (Manual) 10.1 % (8-40) 07/24/20 06:10 Monocytes % 1.9 % (3.8-10.2) L 07/24/20 06:10 Monocytes % (Manual) 0 % (3.8-10.2) L 07/24/20 06:10 Eosinophils % 0.0 % (0-4.5) D 07/24/20 06:10 Eosinophils % (Manual) 0.0 % (0-4.5) 07/24/20 06:10 Basophils % 0.1 % (0-2.0) 07/24/20 06:10 Basophils % (Manual) 0.0 % (0-2.0) 07/24/20 06:10 Myelocytes % (Man) 0 % (0-2) 07/24/20 06:10 Promyelocytes % (Man) 0 % (0-2) 07/24/20 06:10 Blast Cells % (Manual) 0 % (0-0) 07/24/20 06:10 Nucleated RBC % 0 % (0-0) 07/24/20 06:10 Metamyelocytes 0 % (0-2) 07/24/20 06:10 Hypochromia 0 07/24/20 06:10 Platelet Estimate Normal 07/24/20 06:10 Polychromasia 0 07/24/20 06:10 Poikilocytosis 0 07/24/20 06:10 Anisocytosis 0 07/24/20 06:10 Microcytosis 0 07/24/20 06:10 Macrocytosis 0 07/24/20 06:10 PT with INR 11.90 SEC (9.7-13.0) 07/24/20 06:10 INR 1.01 (0.83-1.09) 07/24/20 06:10 PTT (Actin FS) 21.6 SECONDS (25.2-36.5) L 07/24/20 06:10 Sodium 135 mmol/L (136-145) L 07/24/20 06:10 Potassium 3.9 mmol/L (3.5-5.1) 07/24/20 06:10 Chloride 100 mmol/L (98-107) 07/24/20 06:10 Carbon Dioxide 27 mmol/L (21-32) 07/24/20 06:10 Anion Gap 8 MMOL/L (8-16) 07/24/20 06:10 BUN 9.2 mg/dL (7-18) 07/24/20 06:10 Creatinine 0.8 mg/dL (0.55-1.3) 07/24/20 06:10 Est GFR (CKD-EPI)AfAm 92.22 07/24/20 06:10 Est GFR (CKD-EPI)NonAf 79.57 07/24/20 06:10 Random Glucose 93 mg/dL (74-106) 07/24/20 06:10 Lactic Acid 1.0 mmol/L (0.4-2.0) 07/23/20 19:50 Calcium 9.1 mg/dL (8.5-10.1) 07/24/20 06:10 Phosphorus 3.8 mg/dL (2.5-4.9) 07/24/20 06:10 Magnesium 2.2 mg/dL (1.8-2.4) 07/24/20 06:10 Total Bilirubin 0.7 mg/dL (0.2-1) 07/24/20 06:10 AST 30 U/L (15-37) 07/24/20 06:10 ALT 30 U/L (13-61) 07/24/20 06:10 Alkaline Phosphatase 90 U/L (45-117) 07/24/20 06:10 Creatine Kinase 178 U/L (26-192) 07/23/20 19:50 Creatine Kinase Index 0.8 % (0.0-5.0) 07/23/20 19:50 CK-MB (CK-2) 1.5 ng/mL (0.5-3.6) 07/23/20 19:50 Troponin I < 0.02 ng/ml (0.00-0.05) 07/23/20 19:50 Total Protein 6.9 g/dl (6.4-8.2) 07/24/20 06:10 Albumin 3.2 g/dl (3.4-5.0) L 07/24/20 06:10 Lipase 45 U/L (73-393) L 07/23/20 19:50 Urine Color Yellow 07/23/20 20:10 Urine Appearance Clear 07/23/20 20:10 Urine pH 7.0 (5.0-8.0) D 07/23/20 20:10 Ur Specific [place] 1.014 (1.010-1.035) 07/23/20 20:10 Urine Protein Negative (NEGATIVE) 07/23/20 20:10 Urine Glucose (UA) Negative (NEGATIVE) 07/23/20 20:10 Urine Ketones Negative (NEGATIVE) 07/23/20 20:10 Urine Blood Negative (NEGATIVE) 07/23/20 20:10 Urine Nitrite Negative (NEGATIVE) 07/23/20 20:10 Urine Bilirubin Negative (NEGATIVE) 07/23/20 20:10 Urine Urobilinogen 1.0 mg/dL (0.2-1.0) 07/23/20 20:10 Ur Leukocyte Esterase Negative (NEGATIVE) 07/23/20 20:10 Salicylates 1.8 mg/dL (2.8-20) L 07/23/20 19:50 Opiates Screen Positive ng/ml (QVDFIV=454) A* 07/23/20 20:10 Methadone Screen Positive ng/ml (CMXWZA=869) A* 07/23/20 20:10 Acetaminophen < 2.0 ug/ml 07/23/20 19:50 Barbiturate Screen Negative ng/ml (LEDUFR=074) 07/23/20 20:10 Phencyclidine Screen Negative ng/ml (CUTOFF=25) 07/23/20 20:10 Ur Amphetamines Screen Negative ng/ml (QFMNOS=991) 07/23/20 20:10 MDMA (Ecstasy) Screen Negative ng/ml (RJIJMG=516) 07/23/20 20:10 Benzodiazepines Screen Negative ng/ml (MISXSJ=490) 07/23/20 20:10 Cocaine Screen Positive ng/ml (CGJXPA=597) A* 07/23/20 20:10 U Marijuana (THC) Screen Negative ng/ml (CUTOFF=50) 07/23/20 20:10 Alcohol, Quantitative < 3 mg/dL (0.0-5.0) 07/23/20 19:50 SARS-CoV-2 (PCR) Negative (Negative) 07/23/20 23:27 Blood Type O POSITIVE 07/23/20 19:50 Antibody Screen Negative 07/23/20 19:50 Active Medications Generic Name Dose Route Start Last Admin Trade Name Freq PRN Reason Stop Dose Admin Acetaminophen 1,000 mg 07/24/20 10:31 Ofirmev Injection - IVPB Q6H PRN PAIN LEVEL 1-5 Albuterol/Ipratropium 1 amp 07/24/20 10:31 Duoneb - NEB ONCE PRN ASTHMA Chlorhexidine Gluconate 1 applic 07/24/20 22:00 Hibiclens For Decolonization - TP HS ERLIN Fluconazole 50 mls @ 50 mls/hr 07/24/20 10:15 Diflucan 100 Mg/Ns Premixed Ivpb - IVPB DAILY ERLIN Metronidazole 500 mg in 100 mls @ 100 mls/hr 07/24/20 18:00 Flagyl 500mg Premixed Ivpb - IVPB Q8H-IV ERLIN Piperacillin Sod/Tazobactam 50 mls @ 100 mls/hr 07/24/20 18:00 Sod 3.375 gm/ Dextrose IVPB 07/25/20 09:59 Q8H-IV ERLIN Protocol Sodium Chloride 1,000 mls @ 42 mls/hr 07/24/20 10:31 07/24/20 10:49 Normal Saline - IV 42 mls/hr ASDIR ERLIN Administration Piperacillin Sod/Tazobactam 50 mls @ 100 mls/hr 07/24/20 18:00 Sod 3.375 gm/ Dextrose IVPB Q8H-IV ERLIN Protocol Morphine Sulfate 4 mg 07/24/20 10:31 Morphine Sulfate IVPUSH Q4H PRN PAIN LEVEL 6-10 Mupirocin 1 applic 07/24/20 22:00 Bactroban Ointment (For Decolonization) - NS 07/29/20 09:59 BID [facility] Ondansetron HCl 4 mg 07/24/20 10:31 Zofran Injection IVPUSH Q6H PRN NAUSEA AND/OR VOMITING Pantoprazole Sodium 40 mg 07/24/20 22:00 Protonix Iv IVPUSH BID [facility] ASSESSMENT/PLAN: 59 yo female with PMHx of GERD, Hep-C, Asthma, Ectopic , and Substance Abuse (Heroin IV, Cocaine). Presented to ED with abdominal pain, nausea, vomiting. Found to have a gastric ulcer perforation with pneumoperitoneum & free fluid. Admitted to ICU for perforated viscous requiring surgery and ICU level monitoring. Neuro - currently still sedated post op. Responds to stimuli - heroin use 30 min prior to arrival to hospital last night - UDS positive for opiates, methadone, cocaine - watch for signs/symptoms of opioid withdrawal verified dose with [facility] methadone [facility]'s RN Vadim Maldonado: 130 mg PO daily LAST DOSE 07/23 - consulted detox for methadone recs CV - Vitals stable - cardiac monitoring Pulm - Hx of Asthma - Albuterol/Ipratropium (PRN) GI - Hx of HepC - CT Abd/Pelvis- GI perforation at gastric antrum, pneumoperitoneum, free fluid - Zosyn (3.375, TID) - Metronidazole (500, TID) - Pantoprazole (40, BID) - Gen Surg Consult: [facility] perforated anterior pyloric channel ulcer; no abscess; minimal phlegmon Jean patch closure of perforated pyloric channel ulcer NG tube placed continue NPO - Difficulty urinating w/o hematuria/frequency/dysuria - UA negative - huang placed for surgery ID - Zosyn (day 2) - Metronidazole (day 2) - ID Consult Bobsaurav FEN - Monitor electrolytes and replete PRN - NS 42 Heme - monitor Hbg/hct DVT ppx: - SCD GI ppx: - protonix 40 BID Dispo: - continue to monitor post op in ICU Visit type - Emergency Visit Emergency Visit: Yes ED Registration Date: 07/23/20 Care time: The patient presented to the Emergency Department on the above date and was hospitalized for further evaluation of their emergent condition. - New Patient This patient is new to me today: Yes Date on this admission: 07/23/20 - Critical Care Critical Care patient: Yes Total Critical Care Time (in minutes): 36 Critical Care Statement: The care of this patient involved high complexity decision making to prevent further life threatening deterioration of the patient's condition and/or to evaluate & treat vital organ system(s) failure or risk of failure. - Discharge Referral Referred to [facility] No ATTENDING PHYSICIAN STATEMENT I saw and evaluated the patient. I reviewed the resident's note and discussed the case with the resident. I agree with the resident's findings and plan as documented. SUBJECTIVE: OBJECTIVE: ASSESSMENT AND PLAN:
[2020-07-24] MEDS: morphine SULFATE 4 MG/ML VIAL IVPUSH PRN ×3 (12:19→20:16)
[2020-07-24] MEDS: ONDANSETRON 4 MG/2 ML VIAL IVPUSH PRN ×2 (12:42→19:22)
[2020-07-24] MEDS ORDERED: METHADONE HCL 10 MG TABLET PO SCH (13:30)
[2020-07-24] MEDS ORDERED: PT OWN MED DRAWER 7, Y5N ONE ×2 (14:27→15:36)
[2020-07-24] MEDS ORDERED: metroNIDAZOLE 500 MG TABLET PO ONE (14:30)
[2020-07-24] MEDS ORDERED: INSULIN (NOVOLOG) ASPART 100 UNITS/ML 10ML VIAL ONE ×2 (14:32→15:37)
[2020-07-24] MEDS ORDERED: METHADONE HCL 10 MG TABLET ONE (15:26)
[2020-07-24] MEDS ORDERED: METHADONE HCL 40 MG DISPERSABLE TABLET ONE (15:27)
[2020-07-24] MEDS ORDERED: DEXTROSE 5%-WATER - 50 ML IVPB ONE (16:17)
[2020-07-24] MEDS: METHADONE PO SCH (16:19)
[2020-07-24] MEDS: FLUCONAZOLE 100 MG/NS 50 ML IVPB SCH (16:59)
[2020-07-24] MEDS: PIPERACILLIN/TAZOB 3.375 GM 3.375 GM in DEXTROSE 5%-WATER - 50 ML IVPB SCH (17:00)
[2020-07-24] MEDS ORDERED: MORPHINE SULFATE 2 MG/ML VIAL IVPUSH PRN (19:24)
[2020-07-24] MEDS: LORazepam 2 MG/ML SDV VIAL IVPUSH PRN (20:10)
[2020-07-24] MEDS: PANTOPRAZOLE SODIUM 40 MG VIAL IVPUSH SCH (21:59)
[2020-07-24] MEDS ORDERED: CHLORHEXIDINE GLUCONATE 4% CLEANSER FOR DECOLONIZATION TP SCH ×2 (22:00)
[2020-07-24] MEDS: MUPIROCIN 2% TOPICAL OINTMENT FOR DECOLONIZATION NS SCH (22:00)
[2020-07-25] MEDS ORDERED: DEXTROSE 5%-WATER - 50 ML IVPB ONE ×3 (01:00→20:11)
[2020-07-25] MEDS ORDERED: PIPERACILLIN/TAZOBACTAM 3.375 GM VIAL IVPB ONE ×4 (01:00→20:11)
[2020-07-25] MEDS: PIPERACILLIN/TAZOB 3.375 GM 3.375 GM in DEXTROSE 5%-WATER - 50 ML IVPB SCH ×4 (01:51→20:25)
[2020-07-25 06:47] LABS: HEMATOCRIT 34.7 % (32.4-45.2); HEMOGLOBIN 11.6 GM/dL (10.7-15.3); MCH 28.6 pg (25.7-33.7); MCHC 33.3 g/dl (32.0-36.0); MEAN CELL VOLUME 85.9 fl (80-96); MEAN PLT VOLUME 8.2 fl (7.5-11.1); PLATELET COUNT 342 K/MM3 (134-434); RBC 4.04 M/mm3 (3.60-5.2); RDW 14.5 % (11.6-15.6); WHITE BLOOD COUNT 12.2 K/mm3 (4.0-10.0)
[2020-07-25 07:30] LABS: BILIRUBIN,TOTAL 0.7 mg/dL (0.2-1); BLOOD UREA NITROGEN 12.1 mg/dL (7-18); CREATININE 0.8 mg/dL (0.55-1.3); MAGNESIUM 2.2 mg/dL (1.8-2.4); PHOSPHOROUS 3.1 mg/dL (2.5-4.9); POTASSIUM 3.8 mmol/L (3.5-5.1); TOT PROT 6.8 g/dl (6.4-8.2)
[2020-07-25] MEDS ORDERED: SODIUM CHLORIDE 1,000 ML IV SCH (08:14)
[2020-07-25] MEDS ORDERED: FLUCONAZOLE 200 MG/NS 100 ML IVPB SCH (10:00)
[2020-07-25] MEDS: MUPIROCIN 2% TOPICAL OINTMENT FOR DECOLONIZATION NS SCH (10:06)
[2020-07-25] MEDS ORDERED: ACETAMINOPHEN 1000 MG/100 ML VIAL (NON FORMULARY) IVPB PRN ×3 (10:31→18:13)
[2020-07-25] MEDS: LORazepam 2 MG/ML SDV VIAL IVPUSH PRN (10:45)
[2020-07-25] MEDS: PANTOPRAZOLE SODIUM 40 MG VIAL IVPUSH SCH ×2 (10:45→21:37)
[2020-07-25] MEDS: METHADONE PO SCH (10:47)
[2020-07-25] MEDS: FLUCONAZOLE 100 MG/NS 50 ML IVPB SCH (10:48)
--- NOTE | 2020-07-25 11:06 | PN ---
Progress Note (short form) - Note Progress Note: POD 1, Jean patch closure of perforated pyloric channel ulcer for perforated viscus Pt seen and examined. Requesting her methadone. has not been oob, huang in place. NGT in place. Denies cp/sob, n/v Vital Signs Temp 98.1 F 07/25/20 10:00 Pulse 86 07/25/20 10:00 Resp 22 H 07/25/20 10:00 BP 140/82 07/25/20 10:00 Pulse Ox 100 07/25/20 10:00 Intake & Output 07/24/20 07/24/20 07/25/20 11:59 23:59 11:59 Intake Total 600 552 578 Output Total 3215 700 1250 Balance -3404 -187 -642 Intake: IV 600 252 344 Normal Saline - 1,000 ml 252 344 @ 42 mls/hr IV ASDIR ERLIN Rx#:[id number] IVPB 300 234 Output: Urine 3200 700 1250 Huang 3100 700 1250 Estimated Blood Loss 15 Other: Voiding Method Indwelling Catheter Indwelling Catheter Indwelling Catheter Bowel Movement No No No CBC, BMP 07/25/20 05:40 07/25/20 05:40 Gen: awake, alert, nad Resp: unlabored on RA Abdo: soft, nondistended, +ttp near incision, unable to assess for bowel sounds due to pts intolerance with exam. Dressing c/d/i A/P: 59 y/o F w/ PMHx GERD, HepC, Asthma, Substance Abuse (Heroin IV, Cocaine), a/w sudden onset abdominal pain found to have pneumoperitoneum, now POD 1, Jean patch closure of perforated pyloric channel ulcer, s/p perforated viscus afebrile, vss labs stable -Continue npo, IVF -Continue ngt on low wall suction (do not manipulate tube or flush tube) -Keep dressing c/d/i -Pain control -OOB to chair with assist -IV abx per ID -f/u OR culture d/w attending Dr Dover <Roman Viramontes - Last Filed: 07/25/20 11:36> - Note Progress Note: Attending Surgeon: I personally saw and examined the patient. My examination reveals a patient with a perforated ulcer. I discussed the case with the surgical PA and agree with their findings and plan of care with any exceptions as noted. ~ Corbin Dover MD, FACS <Corbin Dover - Last Filed: 07/26/20 10:58>
--- NOTE | 2020-07-25 11:56 | HOSP ---
Subjective - Review of Symptoms Gastrointestinal: Yes: Nausea, Abdominal Pain (7/10 that improves to a 2/10 after pain medication ) Physical Examination Vital Signs: Vital Signs Temperature 98.1 F 07/25/20 10:00 Pulse Rate 86 07/25/20 10:00 Respiratory Rate 22 H 07/25/20 10:00 Blood Pressure 140/82 07/25/20 10:00 O2 Sat by Pulse Oximetry (%) 100 07/25/20 10:00 Constitutional: Yes: No Distress, Other (somnolent. was just given morphine) HENT: Yes: Atraumatic, Normocephalic Cardiovascular: Yes: Regular Rate and Rhythm, S1, S2 Respiratory: Yes: Regular, CTA Bilaterally Gastrointestinal: Yes: Hypoactive Bowel Sounds, Tenderness Labs: CBC, BMP 07/25/20 05:40 07/25/20 05:40 Hospitalist Encounter Assessment: Patient is a 59 YO F with PMH asthma, GERD, Hep C, ectopic , and substance use disorder (IV Heroin, Cocaine) who presented to the hospital for nausea/vomiting and abdominal pain. CTAP showed a perforation at the gastric antrum, pneumoperitoneum, and free fluid. General surgery (Dr. Dover) performed a Jean patch closure of perforated pyloric channel ulcer. Admitted to ICU for post-op monitoring of perforated viscous. Patient currently has a NG tube in place and NPO. She is on Zosyn 3.375 TID, Metronidazole 500 TID, and Pantoprazole 40 BID. Utox was positive for opiates, methadone, cocaine. Her 130 mg PO daily dose of methadone was verified with [facility] methadone clinic's RN Vadim Maldonado. Last dose 07/23. Methadone is being held until patient is cleared by surgery for PO. Last dose of methadone was 07/23. She also used heroin 30 minutes prior to arrival to the ED. Patient is stable for transfer to med surg. Visit type - Emergency Visit Emergency Visit: Yes ED Registration Date: 07/23/20 Care time: The patient presented to the Emergency Department on the above date and was hospitalized for further evaluation of their emergent condition. - New Patient This patient is new to me today: No - Critical Care Critical Care patient: Yes Total Critical Care Time (in minutes): 35 Critical Care Statement: The care of this patient involved high complexity decision making to prevent further life threatening deterioration of the patient's condition and/or to evaluate & treat vital organ system(s) failure or risk of failure.
--- NOTE | 2020-07-25 12:13 | PN ---
Teaching Attending Note Name of Resident: Minor Ruelas ATTENDING PHYSICIAN STATEMENT I saw and evaluated the patient. I reviewed the resident's note and discussed the case with the resident. I agree with the resident's findings and plan as documented. SUBJECTIVE: Patient seen and examined in the ICU. POD#1 : S/P Jean patch repair of pyloric ulcer perforation. Denies CP or SOB. Abdominal pain : 05/02. OBJECTIVE: Intake & Output 07/22/20 07/23/20 07/24/20 07/25/20 23:59 23:59 23:59 23:59 Intake Total 1152 578 Output Total 60 3915 1250 Balance -60 -2763 -672 Weight 107 lb 1 oz Last Vital Signs Temp Pulse Resp BP Pulse Ox 98.1 F 86 22 H 140/82 100 07/25/20 10:00 07/25/20 10:00 07/25/20 10:00 07/25/20 10:00 07/25/20 10:00 Home Medication List Medication Instructions Recorded Confirmed Type Unobtainable 07/23/20 07/23/20 History Active Medications Generic Name Dose Route Start Last Admin Trade Name Freq PRN Reason Stop Dose Admin Acetaminophen 750 mg 07/25/20 11:33 Ofirmev Injection - IVPB 07/26/20 10:30 Q6H PRN PAIN LEVEL 1-5 Albuterol/Ipratropium 1 amp 07/24/20 10:31 Duoneb - NEB ONCE PRN ASTHMA Chlorhexidine Gluconate 1 applic 07/24/20 22:00 07/24/20 21:59 Hibiclens For Decolonization - TP 1 applic HS ERLIN Administration Fluconazole 50 mls @ 50 mls/hr 07/24/20 12:30 07/25/20 10:48 Diflucan 100 Mg/Ns Premixed Ivpb - IVPB 50 mls/hr DAILY ERLIN Administration Metronidazole 500 mg in 100 mls @ 100 mls/hr 07/24/20 18:00 07/25/20 10:45 Flagyl 500mg Premixed Ivpb - IVPB 100 mls/hr Q8H-IV ERLIN Administration Piperacillin Sod/Tazobactam 50 mls @ 100 mls/hr 07/24/20 18:00 Sod 3.375 gm/ Dextrose IVPB Q8H-IV ERLNI Protocol Sodium Chloride 1,000 mls @ 75 mls/hr 10/02/20 08:14 07/25/20 09:00 Normal Saline - IV 75 mls/hr ASDIR ERLIN Administration Lorazepam 1 mg 07/24/20 19:24 07/25/20 10:45 Ativan Injection - IVPUSH 1 mg Q4H PRN Administration ANXIETY Methadone HCl 10 mg/ Methadone 130 mg 07/24/20 14:30 07/25/20 10:47 HCl 120 mg PO Not Given DAILY@0600 E[facility]IN Morphine Sulfate 4 mg 07/24/20 19:37 07/24/20 20:16 Morphine Sulfate IVPUSH 4 mg Q4H PRN Administration PAIN LEVEL 6-10 Mupirocin 1 applic 07/24/20 22:00 07/24/20 22:00 Bactroban Ointment (For Decolonization) - NS 07/29/20 09:59 1 applic BID ERLIN Administration Ondansetron HCl 4 mg 07/24/20 10:31 07/24/20 19:22 Zofran Injection IVPUSH 4 mg Q6H PRN Administration NAUSEA AND/OR VOMITING Pantoprazole Sodium 40 mg 07/24/20 22:00 07/25/20 10:45 Protonix Iv IVPUSH 40 mg BID ERLIN Administration Active Medications Acetaminophen (Ofirmev Injection -) 750 mg IVPB Q6H PRN PRN Reason: PAIN LEVEL 1-5 Stop: 07/26/20 10:30 Albuterol/Ipratropium (Duoneb -) 1 amp NEB ONCE PRN PRN Reason: ASTHMA Chlorhexidine Gluconate (Hibiclens For Decolonization -) 1 applic TP HS ERLIN Last Admin: 07/24/20 21:59 Dose: 1 applic Documented by: Fluconazole (Diflucan 100 Mg/Ns Premixed Ivpb -) 50 mls @ 50 mls/hr IVPB DAILY ERLIN Last Admin: 07/25/20 10:48 Dose: 50 mls/hr Documented by: Metronidazole (Flagyl 500mg Premixed Ivpb -) 500 mg in 100 mls @ 100 mls/hr IVPB Q8H-IV ERLIN Last Admin: 07/25/20 10:45 Dose: 100 mls/hr Documented by: Piperacillin Sod/Tazobactam (Sod 3.375 gm/ Dextrose) 50 mls @ 100 mls/hr IVPB Q8H-IV ERLIN; Protocol Sodium Chloride (Normal Saline -) 1,000 mls @ 75 mls/hr IV ASDIR ERLIN Last Admin: 07/25/20 09:00 Dose: 75 mls/hr Documented by: Lorazepam (Ativan Injection -) 1 mg IVPUSH Q4H PRN PRN Reason: ANXIETY Last Admin: 07/25/20 10:45 Dose: 1 mg Documented by: Methadone HCl 10 mg/ Methadone (HCl 120 mg) 130 mg PO DAILY@0600 [facility] Last Admin: 07/25/20 10:47 Dose: Not Given Documented by: Morphine Sulfate (Morphine Sulfate) 4 mg IVPUSH Q4H PRN PRN Reason: PAIN LEVEL 6-10 Last Admin: 07/24/20 20:16 Dose: 4 mg Documented by: Mupirocin (Bactroban Ointment (For Decolonization) -) 1 applic NS BID [facility] Stop: 07/29/20 09:59 Last Admin: 07/24/20 22:00 Dose: 1 applic Documented by: Ondansetron HCl (Zofran Injection) 4 mg IVPUSH Q6H PRN PRN Reason: NAUSEA AND/OR VOMITING Last Admin: 07/24/20 19:22 Dose: 4 mg Documented by: Pantoprazole Sodium (Protonix Iv) 40 mg IVPUSH BID [facility] Last Admin: 07/25/20 10:45 Dose: 40 mg Documented by: Gen: Awake and alert, NAD Heart: RRR Lung: decreased breath sounds at the bases Abd: soft, dressings clean Ext: no edema [employer]: non-focal Laboratory Results - last 24 hr 07/25/20 07/25/20 05:40 05:40 WBC 12.2 H RBC 4.04 Hgb 11.6 Hct 34.7 MCV 85.9 MCH 28.6 MCHC 33.3 RDW 14.5 Plt Count 342 MPV 8.2 Sodium 132 L Potassium 3.8 Chloride 96 L Carbon Dioxide 28 Anion Gap 9 BUN 12.1 Creatinine 0.8 Est GFR (CKD-EPI)AfAm 92.22 Est GFR (CKD-EPI)NonAf 79.57 Random Glucose 101 Calcium 9.0 Phosphorus 3.1 Magnesium 2.2 Total Bilirubin 0.7 AST 25 ALT 25 Alkaline Phosphatase 87 Total Protein 6.8 Albumin 3.0 L ASSESSMENT AND PLAN: Perforated Pyloric Ulcer POD #1 Jean Patch Closure Polysubstance Abuse Methadone Maintenance Asthma GERD Hep C Smoker - pain control - incentive spirometry - continue antibiotics - Empiric ABX - f/u cultures - NPO - IVF - monitor urine output, creatinine - DVT prophylaxis - Floor Dr Lynne
--- NOTE | 2020-07-25 13:04 | PN ---
Progress Note, Physician History of Present Illness: stable post op no new issues - Current Medication List Current Medications: Active Medications Acetaminophen (Ofirmev Injection -) 750 mg IVPB Q6H PRN PRN Reason: PAIN LEVEL 1-5 Stop: 07/26/20 10:30 Albuterol/Ipratropium (Duoneb -) 1 amp NEB ONCE PRN PRN Reason: ASTHMA Chlorhexidine Gluconate (Hibiclens For Decolonization -) 1 applic TP HS [facility] Last Admin: 07/24/20 21:59 Dose: 1 applic Documented by: Fluconazole (Diflucan 100 Mg/Ns Premixed Ivpb -) 50 mls @ 50 mls/hr IVPB DAILY [facility] Last Admin: 07/25/20 10:48 Dose: 50 mls/hr Documented by: Metronidazole (Flagyl 500mg Premixed Ivpb -) 500 mg in 100 mls @ 100 mls/hr IVPB Q8H-IV ERLIN Last Admin: 07/25/20 10:45 Dose: 100 mls/hr Documented by: Piperacillin Sod/Tazobactam (Sod 3.375 gm/ Dextrose) 50 mls @ 100 mls/hr IVPB Q8H-IV ERLIN; Protocol Sodium Chloride (Normal Saline -) 1,000 mls @ 75 mls/hr IV ASDIR [facility] Last Admin: 07/25/20 09:00 Dose: 75 mls/hr Documented by: Lorazepam (Ativan Injection -) 1 mg IVPUSH Q4H PRN PRN Reason: ANXIETY Last Admin: 07/25/20 10:45 Dose: 1 mg Documented by: Methadone HCl 10 mg/ Methadone (HCl 120 mg) 130 mg PO DAILY@0600 [facility] Last Admin: 07/25/20 10:47 Dose: Not Given Documented by: Morphine Sulfate (Morphine Sulfate) 4 mg IVPUSH Q4H PRN PRN Reason: PAIN LEVEL 6-10 Last Admin: 07/24/20 20:16 Dose: 4 mg Documented by: Mupirocin (Bactroban Ointment (For Decolonization) -) 1 applic NS BID [facility] Stop: 07/29/20 09:59 Last Admin: 07/24/20 22:00 Dose: 1 applic Documented by: Ondansetron HCl (Zofran Injection) 4 mg IVPUSH Q6H PRN PRN Reason: NAUSEA AND/OR VOMITING Last Admin: 07/24/20 19:22 Dose: 4 mg Documented by: Pantoprazole Sodium (Protonix Iv) 40 mg IVPUSH BID [facility] Last Admin: 07/25/20 10:45 Dose: 40 mg Documented by: - Objective Vital Signs: Vital Signs Temperature 98.1 F 07/25/20 10:00 Pulse Rate 86 07/25/20 10:00 Respiratory Rate 22 H 07/25/20 10:00 Blood Pressure 140/82 07/25/20 10:00 O2 Sat by Pulse Oximetry (%) 100 07/25/20 10:00 Constitutional: Yes: No Distress, Calm Cardiovascular: Yes: S1, S2 Respiratory: Yes: Regular, CTA Bilaterally Gastrointestinal: Yes: Soft, Hypoactive Bowel Sounds Musculoskeletal: Yes: WNL Extremities: Yes: WNL Neurological: Yes: Alert, Oriented Psychiatric: Yes: Alert, Oriented Labs: CBC, BMP 07/25/20 05:40 07/25/20 05:40 INR, PTT INR 1.01 (0.83-1.09) 07/24/20 06:10 Assessment/Plan Perforated Pyloric Ulcer s/p Jean Patch Closure Polysubstance Abuse Methadone Maintenance Asthma GERD Hep C Smoker -plan continue abx monitor closely rest as per the team and surgery
--- NOTE | 2020-07-25 14:22 | PN ---
Progress Note (short form) - Note Progress Note: 59 y/o female with a history of GERD, hep C, asthma, ectopic , and substance abuse who was admitted for gastric ulcer perforation and is POD 1 jeb patch closure. Patient has NG tube in, sleepy but awakens to voice. Vital Signs Temperature 98.1 F 07/25/20 10:00 Pulse Rate 86 07/25/20 10:00 Respiratory Rate 22 H 07/25/20 10:00 Blood Pressure 140/82 07/25/20 10:00 O2 Sat by Pulse Oximetry (%) 100 07/25/20 10:00 Physical Exam general: sleepy but easily arousable, thin heart: RRR lungs: CTAL abdomen: large middline bandage msk: no pitting edema CBC, BMP 07/25/20 05:40 07/25/20 05:40 #perforated gastric ulcer with jeb patch closure - POD 1 - maintain NPO and IVF - continue Flagyl and Zosyn, discussed abx with ID - pain control Dispo: patient stable for downgrade <Rhea Bourgeois - Last Filed: 07/25/20 14:51> - Note Progress Note: Continue Fluconazole for now as well. Discussed with surgical team and okay for methadone tomorrow AM to avoid withdrawals. Agree with resident note above. --Ben Edouard DO - <Ben Edouard - Last Filed: 07/25/20 14:55>
[2020-07-25] MEDS: morphine SULFATE 4 MG/ML VIAL IVPUSH PRN (17:36)
[2020-07-25] MEDS ORDERED: ALBUTEROL SO4 2.5/IPRATROPIUM 0.5 INH SOL 3 ML VIAL.NEB. NEB PRN (18:13)
[2020-07-25] MEDS ORDERED: ONDANSETRON 4 MG/2 ML VIAL IVPUSH PRN (18:13)
[2020-07-25] MEDS ORDERED: LORazepam 2 MG/ML SDV VIAL IVPUSH PRN (18:13)
[2020-07-25] MEDS: SODIUM CHLORIDE 1,000 ML IV SCH (18:56)
[2020-07-26] MEDS ORDERED: PIPERACILLIN/TAZOBACTAM 3.375 GM VIAL IVPB ONE ×3 (01:04→17:49)
[2020-07-26] MEDS ORDERED: DEXTROSE 5%-WATER - 50 ML IVPB ONE ×3 (01:04→17:50)
[2020-07-26] MEDS: PIPERACILLIN/TAZOB 3.375 GM 3.375 GM in DEXTROSE 5%-WATER - 50 ML IVPB SCH ×3 (01:24→17:53)
[2020-07-26] MEDS ORDERED: METHADONE HCL 40 MG DISPERSABLE TABLET ONE (05:28)
[2020-07-26] MEDS ORDERED: METHADONE HCL 10 MG TABLET ONE (05:29)
[2020-07-26] MEDS ORDERED: METHADONE PO SCH (06:00)
[2020-07-26] MEDS: PANTOPRAZOLE SODIUM 40 MG VIAL IVPUSH SCH ×2 (09:12→21:27)
[2020-07-26] MEDS ORDERED: FLUCONAZOLE 100 MG/NS 50 ML IVPB SCH (10:00)
[2020-07-26] MEDS: morphine SULFATE 4 MG/ML VIAL IVPUSH PRN ×3 (10:45→19:59)
--- NOTE | 2020-07-26 11:08 | PN ---
Progress Note (short form) - Note Progress Note: Attending Surgeon POD#2 No c/o ?; received her Methadone; no flatus; no BM VSS AF abdo-soft; incision c/d/i; alda in place; no distention/no tympanity; some bowel sounds Peritoneal fluid culture negative WBC 12.2 IMP: stable post op PLAN: NGT removed; keep NPO e/f Methadone; OOB; continue present tx. Corbin Dover MD FACS
--- NOTE | 2020-07-26 11:53 | PN ---
Progress Note, Physician History of Present Illness: stable post op ng tube removed wbc trending down' cx negative so far incision looks good - Current Medication List Current Medications: Active Medications Albuterol/Ipratropium (Duoneb -) 1 amp NEB ONCE PRN PRN Reason: ASTHMA Metronidazole (Flagyl 500mg Premixed Ivpb -) 500 mg in 100 mls @ 100 mls/hr IVPB Q8H-IV ERLIN Last Admin: 07/26/20 09:12 Dose: 100 mls/hr Documented by: Sodium Chloride (Normal Saline -) 1,000 mls @ 75 mls/hr IV ASDIR ERLIN Last Admin: 07/25/20 18:56 Dose: 75 mls/hr Documented by: Piperacillin Sod/Tazobactam (Sod 3.375 gm/ Dextrose) 50 mls @ 100 mls/hr IVPB Q8H-IV ERLIN; Protocol Last Admin: 07/26/20 09:12 Dose: 100 mls/hr Documented by: Fluconazole (Diflucan 100 Mg/Ns Premixed Ivpb -) 50 mls @ 50 mls/hr IVPB DAILY ERLIN Lorazepam (Ativan Injection -) 1 mg IVPUSH Q4H PRN PRN Reason: ANXIETY Methadone HCl 10 mg/ Methadone (HCl 120 mg) 130 mg PO DAILY@0600 [facility] Last Admin: 07/26/20 05:39 Dose: 130 mg Documented by: Morphine Sulfate (Morphine Sulfate) 4 mg IVPUSH Q4H PRN PRN Reason: PAIN LEVEL 6-10 Last Admin: 07/26/20 10:45 Dose: 4 mg Documented by: Ondansetron HCl (Zofran Injection) 4 mg IVPUSH Q6H PRN PRN Reason: NAUSEA AND/OR VOMITING Pantoprazole Sodium (Protonix Iv) 40 mg IVPUSH BID [facility] Last Admin: 07/26/20 09:12 Dose: 40 mg Documented by: - Objective Vital Signs: Vital Signs Temperature 98.4 F 07/26/20 09:38 Pulse Rate 71 07/26/20 09:38 Respiratory Rate 16 07/26/20 09:38 Blood Pressure 135/87 07/26/20 09:38 O2 Sat by Pulse Oximetry (%) 100 07/26/20 09:38 Constitutional: Yes: No Distress, Calm Cardiovascular: Yes: S1, S2 Respiratory: Yes: Regular, CTA Bilaterally Gastrointestinal: Yes: Soft, Other (absent bowel sounds) Musculoskeletal: Yes: WNL Extremities: Yes: WNL Neurological: Yes: Alert, Oriented Psychiatric: Yes: Alert, Oriented Labs: CBC, BMP 07/25/20 05:40 07/25/20 05:40 INR, PTT INR 1.01 (0.83-1.09) 07/24/20 06:10 Assessment/Plan Perforated Pyloric Ulcer s/p Jean Patch Closure Polysubstance Abuse Methadone Maintenance Asthma GERD Hep C Smoker -plan continue abx will deescalte from tomorrow rest as per the team
[2020-07-26] MEDS ORDERED: AMINO ACIDS 4.25%/D5W 1,000 ML IV SCH (12:45)
[2020-07-26 12:55] LABS: BASO % 0.2 % (0-2.0); EOS % 0.1 % (0-4.5); HEMATOCRIT 34.1 % (32.4-45.2); HEMOGLOBIN 11.4 GM/dL (10.7-15.3); LYMPH % 11.3 % (8-40); MCHC 33.5 g/dl (32.0-36.0); MEAN CELL VOLUME 86.6 fl (80-96); MEAN PLT VOLUME 7.7 fl (7.5-11.1); MONO % 5.7 % (3.8-10.2); NEUT % 82.7 % (42.8-82.8); PLATELET COUNT 340 K/MM3 (134-434); RBC 3.94 M/mm3 (3.60-5.2); RDW 14.9 % (11.6-15.6); WHITE BLOOD COUNT 8.4 K/mm3 (4.0-10.0)
[2020-07-26 13:12] LABS: ALBUMIN 2.7 g/dl (3.4-5.0); BILIRUBIN,TOTAL 0.6 mg/dL (0.2-1); BLOOD UREA NITROGEN 13.6 mg/dL (7-18); CALCIUM 9.2 mg/dL (8.5-10.1); CREATININE 0.7 mg/dL (0.55-1.3); MAGNESIUM 2.2 mg/dL (1.8-2.4); PHOSPHOROUS 2.7 mg/dL (2.5-4.9); POTASSIUM 3.5 mmol/L (3.5-5.1); TOT PROT 6.5 g/dl (6.4-8.2)
--- NOTE | 2020-07-26 14:16 | PN ---
Teaching Attending Note Name of Resident: Lenin Regan ATTENDING PHYSICIAN STATEMENT I saw and evaluated the patient. I reviewed the resident's note and discussed the case with the resident. I agree with the resident's findings and plan as documented. SUBJECTIVE: No fever or chills. has abd pain at incision site. no Nausea. no vomiting. did not have flatus or BM yet. she admits to using cocaine and heroin on the day of admission OBJECTIVE: NAD, lethargic. Dry MM. Lungs: CTAB CV: RRR, no MRG Abd: soft, No BS, mid line dressing , which was not removed ( post surgical dressing) . tender abd . NGT in nose Ext : no edema or erythema on LEs. R dorsal hand track javier and small skin abrasions with no erythema or warmth . No discharge ASSESSMENT AND PLAN: 59 y /o lady with h/o active heroin and cocaine use, GERD, hep C, Ectopic , adn asthma, who presented with abd painand was found to have perforated viscus 1- perforated gastric pyloris: POD 2 after Jean patch . 2- heroin and cocaine abuse 3- - cont morphine for pain - cont NGT - cont IVF - add clinimix - NPO - dressing change when appropriate per surgery. - decrease dose of methadone due to lethargy - cont zosyn, flagyl, and fluconazole - peritoneal fluid cx neg . - start heparin Sq for DVT px
--- NOTE | 2020-07-26 14:39 | PN ---
Physical Exam: SUBJECTIVE: Patient seen and examined. Overnight Pt. was able to void in her diaper. Pt. states she had 2 large voiding sessions. Pt. denies passing nay gas or stool from below. Pt. asking to eat. Pt. endorses soreness in her abdomen. OBJECTIVE: Vital Signs Period Temp Pulse Resp BP Sys/Hardwick Pulse Ox Last 24 Hr 98.4 F-98.9 F 66-76 16-22 135-150/73-89 97-100 GENERAL: The patient is awake, alert, and in doscomfort from hunger and abdominal soreness. HEAD: Normal with no signs of trauma. EYES: PERRL, extraocular movements intact, sclera anicteric, conjunctiva clear. No ptosis. ENT: DRY mucous membranes w/ NGT in place draining brown fluid. LUNGS: Breath sounds equal, clear to auscultation bilaterally anteriorly, no wheezes, no crackles, no accessory muscle use. HEART: Regular rate and rhythm, S1, S2 without murmur ABDOMEN: Soft, incisional tenderness, nondistended, bowel sounds hypoactive, guarding EXTREMITIES: 2+ pulses, warm, well-perfused, no calf tendernss no edema. NEUROLOGICAL: Moves all extrmeities. PSYCH: Normal mood, normal affect. SKIN: Warm, dry, track javier in arm and in lower extremities between the 1st and 2nd digits. Laboratory Results - last 24 hr 07/26/20 07/26/20 12:10 12:10 WBC 8.4 RBC 3.94 Hgb 11.4 Hct 34.1 MCV 86.6 MCH 29.0 MCHC 33.5 RDW 14.9 Plt Count 340 MPV 7.7 Absolute Neuts (auto) 6.9 Neutrophils % 82.7 Lymphocytes % 11.3 D Monocytes % 5.7 D Eosinophils % 0.1 D Basophils % 0.2 Nucleated RBC % 0 Sodium 134 L Potassium 3.5 Chloride 98 Carbon Dioxide 29 Anion Gap 8 BUN 13.6 Creatinine 0.7 Est GFR (CKD-EPI)AfAm 108.38 Est GFR (CKD-EPI)NonAf 93.51 Random Glucose 72 L Calcium 9.2 Phosphorus 2.7 Magnesium 2.2 Total Bilirubin 0.6 AST 24 ALT 20 Alkaline Phosphatase 78 Total Protein 6.5 Albumin 2.7 L Active Medications Generic Name Dose Route Start Last Admin Trade Name Freq PRN Reason Stop Dose Admin Albuterol/Ipratropium 1 amp 07/25/20 18:13 Duoneb - NEB ONCE PRN ASTHMA Heparin Sodium (Porcine) 5,000 unit 07/26/20 22:00 Heparin - SQ TID ERLIN Metronidazole 500 mg in 100 mls @ 100 mls/hr 07/25/20 18:30 07/26/20 09:12 Flagyl 500mg Premixed Ivpb - IVPB 100 mls/hr Q8H-IV ERLIN Administration Sodium Chloride 1,000 mls @ 75 mls/hr 07/25/20 18:13 07/25/20 18:56 Normal Saline - IV 75 mls/hr ASDIR ERLIN Administration Piperacillin Sod/Tazobactam 50 mls @ 100 mls/hr 07/25/20 18:30 07/26/20 09:12 Sod 3.375 gm/ Dextrose IVPB 100 mls/hr Q8H-IV ERLIN Administration Protocol Fluconazole 50 mls @ 50 mls/hr 07/26/20 10:00 Diflucan 100 Mg/Ns Premixed Ivpb - IVPB DAILY [facility] Amino Acids 1,000 mls @ 42 mls/hr 07/26/20 14:17 Clinimix - IV Q23H ERLIN Lorazepam 1 mg 07/25/20 18:13 Ativan Injection - IVPUSH Q4H PRN ANXIETY Methadone HCl 100 mg 07/27/20 06:00 Dolophine - PO DAILY@0600 ERLIN Morphine Sulfate 4 mg 07/25/20 18:13 07/26/20 10:45 Morphine Sulfate IVPUSH 4 mg Q4H PRN Administration PAIN LEVEL 6-10 Ondansetron HCl 4 mg 07/25/20 18:13 Zofran Injection IVPUSH Q6H PRN NAUSEA AND/OR VOMITING Pantoprazole Sodium 40 mg 07/25/20 22:00 07/26/20 09:12 Protonix Iv IVPUSH 40 mg BID ERLIN Administration ASSESSMENT/PLAN: Pt. is a 59 y.o. F w/ PMHx. of GERD, Hep-C, Asthma, Hx. of ectopic , and Polysubstance Abuse (Heroin IV, Cocaine). Presented to ED with abdominal pain, nausea, vomiting. Found to have a gastric ulcer perforation with pneumoperitoneum & free fluid. Admitted to ICU for perforated viscous requiring surgery and ICU level monitoring. Pt. stabilized and transferred to Med/Surg. #Acute gastric ulcer w/ perforated viscus - Suspect - CT Abd/Pelvis- GI perforation at gastric antrum, pneumoperitoneum, free fluid - Zosyn (3.375, TID)- started 07/24 - Metronidazole (500, TID) - started 07/24 - Flucoanzole -started 07/24 - Pantoprazole (40, BID) - Gen Surg Consult: Jazzmine perforated anterior pyloric channel ulcer; no abscess; minimal phlegmon Jean patch closure of perforated pyloric channel ulcer on 07/24 NG tube removed 07/26 continue NPO - ID consult appreciated #Altered Mental Status/Lethargy - likely 2/2 Methadone and Morphine - will decrease Methadone to 100mg PO as Pt. receiving Morphine - last heroin use 30 min prior to arrival to hospital - UDS positive for opiates, methadone, cocaine--> Pt. endorsed to Dr. Plata that she used IV cocaine and heroin the day of arrival - watch for signs/symptoms of opioid withdrawal verified dose with [facility] methadone clinic's RN Vadim Maldonado: 130 mg PO daily - Addiction consult appreciated. #Hx of Asthma - Albuterol/Ipratropium (PRN) - CT chest showed bilateral upper and lower subpleural bullae - 0.5cm RLL nodule---> WILL NEED f/u CT in 2 months - Healing 11th rib fracture #Hx of HepC - will require outpatient follow up - unclear if treated, per past notes no documentaiton of treatment - currently Platelets are wnl, PT/INR wnl on admission and Albumin now decreased to 2.7 but was wnl on admission #Urinary retention- resolved - Pt. urinating freely in her diaper - Difficulty urinating w/o hematuria/frequency/dysuria - UA negative - huang discontinued #FEN - NS @75 - Monitor electrolytes and replete PRN - NPO, NGT removed, started Clinimix #DVT ppx: - started Hep SQ for DVT Ppx. #GI ppx: - protonix 40 BID #Dispo: Med/Surg Visit type - Emergency Visit Emergency Visit: Yes ED Registration Date: 07/23/20 Care time: The patient presented to the Emergency Department on the above date and was hospitalized for further evaluation of their emergent condition. - New Patient This patient is new to me today: Yes Date on this admission: 07/26/20 - Critical Care Critical Care patient: No - Discharge Referral Referred to [facility] Med P.C.: No ATTENDING PHYSICIAN STATEMENT I saw and evaluated the patient. I reviewed the resident's note and discussed the case with the resident. I agree with the resident's findings and plan as documented. SUBJECTIVE: OBJECTIVE: ASSESSMENT AND PLAN:
[2020-07-26] MEDS: AMINO ACIDS 4.25%/D5W 1,000 ML IV SCH (14:47)
[2020-07-26] MEDS ORDERED: PT OWN MED DRAWER 7, Y5N ONE (14:50)
[2020-07-26] MEDS: FLUCONAZOLE 100 MG/NS 50 ML IVPB SCH (15:13)
[2020-07-26] MEDS: HEPARIN NA (PORCINE) 5,000 UNITS/ML 1ML VIAL SQ SCH (21:08)
[2020-07-27] MEDS ORDERED: PIPERACILLIN/TAZOBACTAM 3.375 GM VIAL IVPB ONE ×3 (00:57→17:17)
[2020-07-27] MEDS ORDERED: DEXTROSE 5%-WATER - 50 ML IVPB ONE ×3 (00:57→17:18)
[2020-07-27] MEDS: SODIUM CHLORIDE 1,000 ML IV SCH ×2 (01:37→15:26)
[2020-07-27] MEDS: PIPERACILLIN/TAZOB 3.375 GM 3.375 GM in DEXTROSE 5%-WATER - 50 ML IVPB SCH ×3 (01:43→17:37)
[2020-07-27] MEDS: METHADONE HCL 10 MG TABLET PO SCH (05:48)
[2020-07-27] MEDS: HEPARIN NA (PORCINE) 5,000 UNITS/ML 1ML VIAL SQ SCH ×3 (05:52→21:48)
[2020-07-27 08:44] LABS: BASO % 0.4 % (0-2.0); EOS % 1.2 % (0-4.5); HEMATOCRIT 33.2 % (32.4-45.2); HEMOGLOBIN 11.1 GM/dL (10.7-15.3); LYMPH % 15.2 % (8-40); MCH 28.9 pg (25.7-33.7); MCHC 33.5 g/dl (32.0-36.0); MEAN CELL VOLUME 86.3 fl (80-96); MEAN PLT VOLUME 7.4 fl (7.5-11.1); MONO % 7.6 % (3.8-10.2); NEUT % 75.6 % (42.8-82.8); PLATELET COUNT 335 K/MM3 (134-434); RBC 3.85 M/mm3 (3.60-5.2); RDW 14.6 % (11.6-15.6); WHITE BLOOD COUNT 5.1 K/mm3 (4.0-10.0)
[2020-07-27 09:05] LABS: CALCIUM 8.8 mg/dL (8.5-10.1); CREATININE 0.7 mg/dL (0.55-1.3); MAGNESIUM 2.2 mg/dL (1.8-2.4); PHOSPHOROUS 2.1 mg/dL (2.5-4.9); POTASSIUM 3.4 mmol/L (3.5-5.1)
[2020-07-27] MEDS: PANTOPRAZOLE SODIUM 40 MG VIAL IVPUSH SCH ×2 (10:43→21:48)
[2020-07-27] MEDS: morphine SULFATE 4 MG/ML VIAL IVPUSH PRN (10:43)
[2020-07-27] MEDS: FLUCONAZOLE 100 MG/NS 50 ML IVPB SCH (10:43)
--- NOTE | 2020-07-27 11:21 | PN ---
Progress Note (short form) - Note Progress Note: Attending Surgeon POD#3 No c/o ?; received her Methadone; no flatus; no BM VSS AF abdo-soft; incision c/d/i; alda in place; no distention/no tympanity; some bowel sounds WBC -nl IMP: stable post op PLAN: Clear liquids as tolerated; OOB Corbin Dover MD FACS
[2020-07-27] MEDS ORDERED: BISACODYL 10 MG SUPP.RECT PR ONE (14:36)
[2020-07-27] MEDS ORDERED: PANTOPRAZOLE 40 MG TABLET PO ONE (14:43)
[2020-07-27] MEDS ORDERED: POTASSIUM CHLORIDE TABS 20 MEQ TABLET.ER (FP) PO ONE (14:43)
--- NOTE | 2020-07-27 14:43 | PN ---
Progress Note (short form) - Note Progress Note: Subjective: no fever ro chills. No MARTIN , abd pain which responded to pain meds. passed some flatus in am , no BM Objective: Vital Signs: Last Vital Signs Temp Pulse Resp BP Pulse Ox 97.9 F 67 18 146/90 99 07/27/20 05:59 07/27/20 05:59 07/27/20 08:33 07/27/20 05:59 07/27/20 08:33 Laboratory Results - last 24 hr 07/27/20 07/27/20 08:18 08:18 WBC 5.1 RBC 3.85 Hgb 11.1 Hct 33.2 MCV 86.3 MCH 28.9 MCHC 33.5 RDW 14.6 Plt Count 335 MPV 7.4 L Absolute Neuts (auto) 3.9 Neutrophils % 75.6 Lymphocytes % 15.2 D Monocytes % 7.6 Eosinophils % 1.2 D Basophils % 0.4 Nucleated RBC % 0 Sodium 134 L Potassium 3.4 L Chloride 99 Carbon Dioxide 30 Anion Gap 5 L BUN 16.0 Creatinine 0.7 Est GFR (CKD-EPI)AfAm 108.38 Est GFR (CKD-EPI)NonAf 93.51 Random Glucose 98 Calcium 8.8 Phosphorus 2.1 L Magnesium 2.2 OBJECTIVE: NAD, awake, and alert . MMM Lungs: CTAB CV: RRR, no MRG Abd: soft,Nl BS, tender to palpation , ND. mid line surgical wound with alda . no surrounding erythema or discharge . Ext : no edema or erythema on LEs. R dorsal hand track javier and small skin abrasions with no erythema or warmth . No discharge ASSESSMENT AND PLAN: 59 y /o lady with h/o active heroin and cocaine use, GERD, hep C, Ectopic , and asthma, who presented with abd painand was found to have perforated viscus 1- Perforated gastric pyloris: POD 3 after Jean patch . 2- Heroin and cocaine abuse plan : - NGT was removed last ngiht - clears today - decrease IVF - dc Clinimix - dc morphine , add oxycodone - cont methadone at current dose - cont zosyn, flagyl, and fluconazole - heparin Sq for DVT px - add protonix Case was d/w Dr. Dover Visit type - Emergency Visit Emergency Visit: Yes ED Registration Date: 07/23/20 Care time: The patient presented to the Emergency Department on the above date and was hospitalized for further evaluation of their emergent condition. - New Patient This patient is new to me today: No - Critical Care Critical Care patient: No
[2020-07-27] MEDS: AMINO ACIDS 4.25%/D5W 1,000 ML IV SCH (14:56)
[2020-07-27] MEDS: oxyCODONE HCL 5 MG TABLET PO PRN ×2 (15:25→20:14)
[2020-07-27] MEDS: DOCUSATE NA 100 MG/10 ML UNIT-DOSE CUPS PO PRN (15:33)
[2020-07-28] MEDS: oxyCODONE HCL 5 MG TABLET PO PRN ×3 (01:11→21:17)
[2020-07-28] MEDS ORDERED: PIPERACILLIN/TAZOBACTAM 3.375 GM VIAL IVPB ONE ×3 (02:10→16:43)
[2020-07-28] MEDS ORDERED: DEXTROSE 5%-WATER - 50 ML IVPB ONE ×3 (02:11→16:43)
[2020-07-28] MEDS: PIPERACILLIN/TAZOB 3.375 GM 3.375 GM in DEXTROSE 5%-WATER - 50 ML IVPB SCH ×3 (02:38→17:12)
[2020-07-28] MEDS: METHADONE HCL 10 MG TABLET PO SCH (05:25)
[2020-07-28] MEDS: HEPARIN NA (PORCINE) 5,000 UNITS/ML 1ML VIAL SQ SCH ×3 (05:27→21:17)
[2020-07-28 09:21] LABS: BASO % 0.5 % (0-2.0); EOS % 2.7 % (0-4.5); HEMATOCRIT 33.1 % (32.4-45.2); HEMOGLOBIN 10.9 GM/dL (10.7-15.3); LYMPH % 19.2 % (8-40); MCH 28.8 pg (25.7-33.7); MCHC 32.9 g/dl (32.0-36.0); MEAN CELL VOLUME 87.6 fl (80-96); MEAN PLT VOLUME 7.7 fl (7.5-11.1); MONO % 8.4 % (3.8-10.2); NEUT % 69.2 % (42.8-82.8); PLATELET COUNT 368 K/MM3 (134-434); RBC 3.78 M/mm3 (3.60-5.2); RDW 14.9 % (11.6-15.6); WHITE BLOOD COUNT 5.3 K/mm3 (4.0-10.0)
--- NOTE | 2020-07-28 09:49 | PN ---
Progress Note (short form) - Note Progress Note: 59yo F s/p jeb mahan, pt seen and examined at bedside. Pt states she is tolerating clears and wants to eat regular food. Pt denies fever, chills, n/v. Pt complaining of abdominal/incisional pain. Pt is not really ambulating, due to discomfort. Last Vital Signs Temp Pulse Resp BP Pulse Ox 98.2 F 56 L 18 124/68 98 07/28/20 07:00 07/28/20 07:00 07/28/20 07:00 07/28/20 07:00 07/28/20 07:00 CBC, BMP 07/28/20 08:22 PE Gen: A&O X3 Resp: breathing comfortably ABd: soft, nondistended, mild diffuse tenderness, Incision clean, no erythema or discharge. Ext: no edema Problem List - Problems (1) Perforated gastric ulcer Assessment/Plan: Plan -pt appears to be tolerating clears will adv to regular diet. -emphasized OOB/ambulate -pain control -dvt ppx Pt discussed with Dr. Dover who agrees with plan Code(s): K25.5 - CHRONIC OR UNSPECIFIED GASTRIC ULCER WITH PERFORATION Qualifiers: Gastric ulcer chronicity: acute Qualified Code(s): K25.1 - Acute gastric ulcer with perforation
[2020-07-28 09:51] LABS: BLOOD UREA NITROGEN 13.4 mg/dL (7-18); CALCIUM 9.2 mg/dL (8.5-10.1); CREATININE 0.7 mg/dL (0.55-1.3)
[2020-07-28] MEDS ORDERED: PT OWN MED DRAWER 7, Y5N ONE ×2 (09:55→11:33)
[2020-07-28] MEDS: PANTOPRAZOLE 40 MG TABLET PO SCH (10:13)
[2020-07-28] MEDS: DOCUSATE NA 100 MG/10 ML UNIT-DOSE CUPS PO PRN (10:13)
[2020-07-28] MEDS ORDERED: FLU VACCINE (FLULAVAL) PF 60 MCG/0.5 ML SYRINGE 2020-2021 IM ONE (11:00)
[2020-07-28] MEDS: PANTOPRAZOLE SODIUM 40 MG VIAL IVPUSH SCH ×2 (11:44→21:17)
--- NOTE | 2020-07-28 12:21 | PN ---
Physical Exam: SUBJECTIVE: Patient seen and examined today in no acute distress, endorses belching, but no BM today. Denies N/V/D. Denies abdominal pain that is out of proportion. Denies F/C, CP, SoB. OBJECTIVE: Vital Signs Period Temp Pulse Resp BP Sys/Hardwick Pulse Ox Last 24 Hr 98.2 F-99.0 F 53-62 16-18 115-140/68-74 97-100 GENERAL: The patient is awake, alert, and fully oriented, in no acute distress. HEAD: Normal with no signs of trauma. EYES: PERRL, extraocular movements intact, sclera anicteric, conjunctiva clear. No ptosis. NECK: Trachea midline, full range of motion, supple. LUNGS: Breath sounds equal, clear to auscultation bilaterally, no wheezes, no crackles, no accessory muscle use. HEART: Regular rate and rhythm, S1, S2 without murmur, rub or gallop. ABDOMEN: Ex-lap scar w/ alda, no drainage, no erythema. Soft, nondistended, normoactive bowel sounds EXTREMITIES: 2+ pulses, warm, well-perfused, no edema. Lower extremity PVD w/ hemosiderin like deposits NEUROLOGICAL: Normal speech, gait not observed. PSYCH: Normal mood, normal affect. SKIN: Warm, dry, normal turgor, no rashes or lesions noted Laboratory Results - last 24 hr CBC, BMP 07/28/20 08:22 07/28/20 08:22 Active Medications Generic Name Dose Route Start Last Admin Trade Name Freq PRN Reason Stop Dose Admin Albuterol/Ipratropium 1 amp 07/25/20 18:13 Duoneb - NEB ONCE PRN ASTHMA Docusate Sodium 100 mg 07/27/20 14:35 07/28/20 10:13 Colace Liquid - PO 100 mg DAILY PRN Administration CONSTIPATION Heparin Sodium (Porcine) 5,000 unit 07/26/20 22:00 07/28/20 05:27 Heparin - SQ 5,000 unit TID ERLIN Administration Metronidazole 500 mg in 100 mls @ 100 mls/hr 07/25/20 18:30 07/28/20 11:27 Flagyl 500mg Premixed Ivpb - IVPB 100 mls/hr Q8H-IV ERLIN Administration Piperacillin Sod/Tazobactam 50 mls @ 100 mls/hr 07/25/20 18:30 07/28/20 10:14 Sod 3.375 gm/ Dextrose IVPB 100 mls/hr Q8H-IV ERLIN Administration Protocol Fluconazole 50 mls @ 50 mls/hr 07/26/20 10:00 07/27/20 10:43 Diflucan 100 Mg/Ns Premixed Ivpb - IVPB 50 mls/hr DAILY ERLIN Administration Sodium Chloride 1,000 mls @ 50 mls/hr 07/27/20 14:36 07/27/20 15:26 Normal Saline - IV 50 mls/hr ASDIR ERLIN Administration Lorazepam 1 mg 07/25/20 18:13 Ativan Injection - IVPUSH Q4H PRN ANXIETY Methadone HCl 100 mg 07/27/20 06:00 07/28/20 05:25 Dolophine - PO 100 mg DAILY@0600 ERLIN Administration Ondansetron HCl 4 mg 07/25/20 18:13 Zofran Injection IVPUSH Q6H PRN NAUSEA AND/OR VOMITING Oxycodone HCl 5 mg 07/27/20 14:35 07/28/20 01:11 Roxicodone - PO 5 mg Q4H PRN Administration PAIN LEVEL 6-10 Pantoprazole Sodium 40 mg 07/25/20 22:00 07/28/20 11:44 Protonix Iv IVPUSH Not Given BID ERLIN Pantoprazole Sodium 40 mg 07/28/20 10:00 07/28/20 10:13 Protonix - PO 40 mg DAILY ERLIN Administration ASSESSMENT/PLAN: 59 yo F w/ hx of active heroin and cocaine use, GERD, hep C, Ectopic , and asthma, presented with abdominal pain and found to have a perforated gastric pyloris currently s/p repair with Jean patch. ACUTE PERFORATION OF ANTERIOR PYLORIC CHANNEL 2/2 ULCER - s/p Jean Patch POD #4 - Diet advanced to regular from [facility] per surgery - c/w Zosyn 3.375 [id number] - Day 6 - c/w Metronidazole 500mg q8 - day 5 - c/w Flucoanzole 100mg qDaily - day 5 - c/w Pantoprazole 40mg Daily - c/w Oxicodone 5mg q4 PRN for pain - c/w Colace 100mg daily for constipation HISTORY OF POLYSUBSTANCE ABUSE -c/w Methadone 100mg -c/w Ativan 1mg IV q4 PRN HISTORY OF ASTHMA - Currently satting 97-100% on RA - Duonebs PRN HISTORY OF HEP-C - No transaminitis - Normal platelets - Normal bilirubin levels. - No signs jaundice - Refer to outpatient GI for followup PPx -DVT: Heparin TID -GI: Protonix 40 BID FEN - NS @50 - CMP - Regular diet DISPO -Continue to monitor on med/surg Visit type - Emergency Visit Emergency Visit: No - New Patient This patient is new to me today: Yes Date on this admission: 07/28/20 - Critical Care Critical Care patient: No - Discharge Referral Referred to [facility] Med P.C.: No ATTENDING PHYSICIAN STATEMENT I saw and evaluated the patient. I reviewed the resident's note and discussed the case with the resident. I agree with the resident's findings and plan as documented. SUBJECTIVE: OBJECTIVE: ASSESSMENT AND PLAN:
[2020-07-28] MEDS: FLUCONAZOLE 100 MG/NS 50 ML IVPB SCH (12:33)
[2020-07-28] MEDS: SODIUM CHLORIDE 1,000 ML IV SCH (13:45)
--- NOTE | 2020-07-28 14:01 | PN ---
Progress Note, Physician History of Present Illness: stable post op no new issues improving - Current Medication List Current Medications: Active Medications Albuterol/Ipratropium (Duoneb -) 1 amp NEB ONCE PRN PRN Reason: ASTHMA Docusate Sodium (Colace Liquid -) 100 mg PO DAILY PRN PRN Reason: CONSTIPATION Last Admin: 07/28/20 10:13 Dose: 100 mg Documented by: Heparin Sodium (Porcine) (Heparin -) 5,000 unit SQ TID [facility] Last Admin: 07/28/20 13:44 Dose: 5,000 unit Documented by: Metronidazole (Flagyl 500mg Premixed Ivpb -) 500 mg in 100 mls @ 100 mls/hr IVPB Q8H-IV ERLIN Last Admin: 07/28/20 11:27 Dose: 100 mls/hr Documented by: Piperacillin Sod/Tazobactam (Sod 3.375 gm/ Dextrose) 50 mls @ 100 mls/hr IVPB Q8H-IV ERLIN; Protocol Last Admin: 07/28/20 10:14 Dose: 100 mls/hr Documented by: Fluconazole (Diflucan 100 Mg/Ns Premixed Ivpb -) 50 mls @ 50 mls/hr IVPB DAILY [facility] Last Admin: 07/28/20 12:33 Dose: 50 mls/hr Documented by: Sodium Chloride (Normal Saline -) 1,000 mls @ 50 mls/hr IV ASDIR [facility] Last Admin: 07/28/20 13:45 Dose: 50 mls/hr Documented by: Lorazepam (Ativan Injection -) 1 mg IVPUSH Q4H PRN PRN Reason: ANXIETY Methadone HCl (Dolophine -) 100 mg PO DAILY@0600 [facility] Last Admin: 07/28/20 05:25 Dose: 100 mg Documented by: Ondansetron HCl (Zofran Injection) 4 mg IVPUSH Q6H PRN PRN Reason: NAUSEA AND/OR VOMITING Oxycodone HCl (Roxicodone -) 5 mg PO Q4H PRN PRN Reason: PAIN LEVEL 6-10 Last Admin: 07/28/20 13:47 Dose: 5 mg Documented by: Pantoprazole Sodium (Protonix Iv) 40 mg IVPUSH BID [facility] Last Admin: 07/28/20 11:44 Dose: Not Given Documented by: Pantoprazole Sodium (Protonix -) 40 mg PO DAILY [facility] Last Admin: 07/28/20 10:13 Dose: 40 mg Documented by: - Objective Vital Signs: Vital Signs Temperature 98.2 F 07/28/20 09:58 Pulse Rate 55 L 07/28/20 09:58 Respiratory Rate 18 07/28/20 09:58 Blood Pressure 131/74 07/28/20 09:58 O2 Sat by Pulse Oximetry (%) 97 07/28/20 10:00 Constitutional: Yes: No Distress, Calm Cardiovascular: Yes: S1, S2 Respiratory: Yes: Regular, CTA Bilaterally Gastrointestinal: Yes: Normal Bowel Sounds, Soft Musculoskeletal: Yes: WNL Extremities: Yes: WNL Wound/Incision: Yes: Clean/Dry Neurological: Yes: Alert, Oriented Psychiatric: Yes: Alert, Oriented Labs: CBC, BMP 07/28/20 08:22 07/28/20 08:22 INR, PTT INR 1.01 (0.83-1.09) 07/24/20 06:10 Assessment/Plan Perforated Pyloric Ulcer s/p Jean Patch Closure Polysubstance Abuse Methadone Maintenance Asthma GERD Hep C Smoker -plan improving monitor closely rest as per the team and surgery
--- NOTE | 2020-07-28 17:49 | PN ---
Teaching Attending Note Name of Resident: Rafa Cruz ATTENDING PHYSICIAN STATEMENT I saw and evaluated the patient. I reviewed the resident's note and discussed the case with the resident. I agree with the resident's findings and plan as documented. SUBJECTIVE: seen around 8:30 am no fever or chills , no MARTIN , has painin abd , wanted to eat real food . No BM OBJECTIVE: NAD, slightly lethargic but carries a conversation MMM Lungs: CTAB CV: RRR, no MRG Abd: soft, Nl BS, tender to palpation , ND. mid line surgical wound with alda . no surrounding erythema or discharge . Ext : no edema or erythema on LEs. ASSESSMENT AND PLAN: 59 y /o lady with h/o active heroin and cocaine use, GERD, hep C, Ectopic , and asthma, who presented with abd painand was found to have perforated viscus 1- Perforated gastric pyloris: POD 4 after Jean patch . 2- Heroin and cocaine abuse plan : - regular diet - might c IVF tomorrow - cont oxycodone - cont methadone at current dose - cont zosyn, flagyl, and fluconazole - heparin Sq for DVT px - protonix
[2020-07-29] MEDS ORDERED: ALBUTEROL SO4 2.5/IPRATROPIUM 0.5 INH SOL 3 ML VIAL.NEB. NEB ONE (00:22)
[2020-07-29] MEDS ORDERED: DEXTROSE 5%-WATER - 50 ML IVPB ONE ×3 (01:05→16:24)
[2020-07-29] MEDS ORDERED: PIPERACILLIN/TAZOBACTAM 3.375 GM VIAL IVPB ONE ×3 (01:05→16:23)
[2020-07-29] MEDS: PIPERACILLIN/TAZOB 3.375 GM 3.375 GM in DEXTROSE 5%-WATER - 50 ML IVPB SCH ×3 (01:46→18:38)
[2020-07-29] MEDS: oxyCODONE HCL 5 MG TABLET PO PRN ×4 (02:19→19:34)
[2020-07-29] MEDS ORDERED: PT OWN MED DRAWER 7, Y5N ONE (05:46)
[2020-07-29] MEDS: HEPARIN NA (PORCINE) 5,000 UNITS/ML 1ML VIAL SQ SCH ×3 (06:05→21:48)
[2020-07-29] MEDS: METHADONE HCL 10 MG TABLET PO SCH (06:05)
[2020-07-29 08:41] LABS: BASO % 0.4 % (0-2.0); EOS % 3.8 % (0-4.5); HEMATOCRIT 33.8 % (32.4-45.2); HEMOGLOBIN 11.2 GM/dL (10.7-15.3); LYMPH % 20.2 % (8-40); MCH 28.8 pg (25.7-33.7); MCHC 33.2 g/dl (32.0-36.0); MEAN CELL VOLUME 86.9 fl (80-96); MEAN PLT VOLUME 7.6 fl (7.5-11.1); NEUT % 67.6 % (42.8-82.8); PLATELET COUNT 360 K/MM3 (134-434); RBC 3.89 M/mm3 (3.60-5.2); WHITE BLOOD COUNT 5.1 K/mm3 (4.0-10.0)
[2020-07-29 08:57] LABS: BLOOD UREA NITROGEN 11.1 mg/dL (7-18); CALCIUM 8.7 mg/dL (8.5-10.1); CREATININE 0.7 mg/dL (0.55-1.3); MAGNESIUM 1.8 mg/dL (1.8-2.4); PHOSPHOROUS 3.8 mg/dL (2.5-4.9); POTASSIUM 3.5 mmol/L (3.5-5.1)
[2020-07-29] MEDS: PANTOPRAZOLE 40 MG TABLET PO SCH (09:27)
[2020-07-29] MEDS: DOCUSATE NA 100 MG/10 ML UNIT-DOSE CUPS PO PRN (09:27)
[2020-07-29] MEDS: MULTIVITAMINS (DAILY MVI) TABLET (FP) PO SCH (09:27)
--- NOTE | 2020-07-29 09:30 | PN ---
Teaching Attending Note Name of Resident: Rafa Cruz ATTENDING PHYSICIAN STATEMENT I saw and evaluated the patient. I reviewed the resident's note and discussed the case with the resident. I agree with the resident's findings and plan as documented. This patient is new to me today 07/29/2020 SUBJECTIVE: Patient is feeling better, NAD. tolerating without any issues. OBJECTIVE: Vital Signs Temperature 97.5 F L 07/29/20 03:00 Pulse Rate 58 L 07/29/20 03:00 Respiratory Rate 18 07/29/20 03:00 Blood Pressure 127/67 07/29/20 03:00 O2 Sat by Pulse Oximetry (%) 99 07/29/20 03:00 PE: per resident's note alda mid abdomen multiple , clean , no erythema CBCD WBC 5.1 K/mm3 (4.0-10.0) 07/29/20 07:15 RBC 3.89 M/mm3 (3.60-5.2) 07/29/20 07:15 Hgb 11.2 GM/dL (10.7-15.3) 07/29/20 07:15 Hct 33.8 % (32.4-45.2) 07/29/20 07:15 MCV 86.9 fl (80-96) 07/29/20 07:15 MCHC 33.2 g/dl (32.0-36.0) 07/29/20 07:15 RDW 15.0 % (11.6-15.6) 07/29/20 07:15 Plt Count 360 K/MM3 (134-434) 07/29/20 07:15 MPV 7.6 fl (7.5-11.1) 07/29/20 07:15 CMP Sodium 136 mmol/L (136-145) 07/29/20 07:15 Potassium 3.5 mmol/L (3.5-5.1) 07/29/20 07:15 Chloride 101 mmol/L (98-107) 07/29/20 07:15 Carbon Dioxide 28 mmol/L (21-32) 07/29/20 07:15 Anion Gap 8 MMOL/L (8-16) 07/29/20 07:15 BUN 11.1 mg/dL (7-18) 07/29/20 07:15 Creatinine 0.7 mg/dL (0.55-1.3) 07/29/20 07:15 Random Glucose 113 mg/dL (74-106) H 07/29/20 07:15 Calcium 8.7 mg/dL (8.5-10.1) 07/29/20 07:15 Total Bilirubin 0.6 mg/dL (0.2-1) 07/26/20 12:10 AST 24 U/L (15-37) 07/26/20 12:10 ALT 20 U/L (13-61) 07/26/20 12:10 Alkaline Phosphatase 78 U/L (45-117) 07/26/20 12:10 Total Protein 6.5 g/dl (6.4-8.2) 07/26/20 12:10 Albumin 2.7 g/dl (3.4-5.0) L 07/26/20 12:10 CARDIAC ENZYMES Creatine Kinase 178 U/L (26-192) 07/23/20 19:50 Troponin I < 0.02 ng/ml (0.00-0.05) 07/23/20 19:50 Current Medications Generic Name Dose Route Start Last Admin Trade Name Freq PRN Reason Stop Dose Admin Docusate Sodium 100 mg 07/27/20 14:35 07/29/20 09:27 Colace Liquid - PO 100 mg DAILY PRN Administration CONSTIPATION Heparin Sodium (Porcine) 5,000 unit 07/26/20 22:00 07/29/20 06:05 Heparin - SQ 5,000 unit TID ERLIN Administration Metronidazole 500 mg in 100 mls @ 100 mls/hr 07/25/20 18:30 07/29/20 09:28 Flagyl 500mg Premixed Ivpb - IVPB 100 mls/hr Q8H-IV ERLIN Administration Piperacillin Sod/Tazobactam 50 mls @ 100 mls/hr 07/25/20 18:30 07/29/20 01:46 Sod 3.375 gm/ Dextrose IVPB 100 mls/hr Q8H-IV ERLIN Administration Protocol Fluconazole 50 mls @ 50 mls/hr 07/26/20 10:00 07/28/20 12:33 Diflucan 100 Mg/Ns Premixed Ivpb - IVPB 50 mls/hr DAILY ERLIN Administration Sodium Chloride 1,000 mls @ 50 mls/hr 07/27/20 14:36 07/28/20 13:45 Normal Saline - IV 50 mls/hr ASDIR ERLIN Administration Methadone HCl 100 mg 07/27/20 06:00 07/29/20 06:05 Dolophine - PO 100 mg DAILY@0600 ERLIN Administration Multivitamins/Minerals/Vitamin C 1 tab 07/29/20 10:00 07/29/20 09:27 Tab-A-Vit - PO 1 tab DAILY ERLIN Administration Ondansetron HCl 4 mg 07/25/20 18:13 Zofran Injection IVPUSH Q6H PRN NAUSEA AND/OR VOMITING Oxycodone HCl 5 mg 07/27/20 14:35 07/29/20 09:27 Roxicodone - PO 5 mg Q4H PRN Administration PAIN LEVEL 6-10 Pantoprazole Sodium 40 mg 07/25/20 22:00 07/28/20 21:17 Protonix Iv IVPUSH 40 mg BID ERLIN Administration Pantoprazole Sodium 40 mg 07/28/20 10:00 07/29/20 09:27 Protonix - PO 40 mg DAILY ERLIN Administration Home Medications Medication Instructions Recorded Unobtainable 07/23/20 Microbiology 07/24/20 09:00 Peritoneal Fluid Gram Stain - Final 07/24/20 09:00 Peritoneal Fluid Body Fluid Culture - Final NO GROWTH OF AEROBIC ORGANISMS AFTER 48 HOURS INCUBATION 07/24/20 09:00 Peritoneal Fluid Anaerobic Culture - Final NO ANAEROBES WERE ISOLATED 07/24/20 10:30 Nares - Mrsa Screen - Right MRSA Screen - Final NO MRSA ISOLATED 07/24/20 10:30 Nares - Mrsa Screen - Left MRSA Screen - Final NO MRSA ISOLATED 07/23/20 20:10 Urine - Urine Clean Catch Urine Culture - Final NO GROWTH OBTAINED ASSESSMENT AND PLAN: This patient is a 59yof with PMhx of active heroin and cocaine use, GERD, hep C, Ectopic , and asthma, who presented with abdominal pain and was found to have perforated viscus # s/p POD #6 Perforated gastric pyloris:s/p Jean patch .continue iv antibiotics # hx of Heroin and cocaine abuse cont methadone at current dose heparin Sq for DVT px protonix
--- NOTE | 2020-07-29 11:31 | PN ---
Progress Note (short form) - Note Progress Note: POD 5, Jean patch closure of perforated pyloric channel ulcer for perforated viscus Pt seen and examined. States she is doing well. Has some pain with movement, improved by her Methadone. Tolerating diet. No bms, passing flatus. Denies cp/sob, n/v Vital Signs Temp 99.3 F 07/29/20 09:00 Pulse 72 07/29/20 09:00 Resp 18 07/29/20 09:00 BP 129/97 07/29/20 09:00 Pulse Ox 100 07/29/20 09:00 Intake & Output 07/28/20 07/28/20 07/29/20 11:59 23:59 11:59 Intake Total 750 Output Total 750 300 Balance 0 -300 Intake: IV 450 Normal Saline - 1,000 ml 450 @ 50 mls/hr IV ASDIR ERLIN Rx#:[id number] IVPB 300 Output: Urine 750 300 Void 750 300 Other: Voiding Method External Catheter External Catheter External Catheter Bowel Movement No No No Body Mass Index (BMI) 18.9 CBC, BMP 07/29/20 07:15 07/29/20 07:15 Gen: awake, alert, nad Resp: unlabored on RA Abdo: soft, nondistended, +ttp near incision, + bowel sounds all 4 quadrants, incision c/d/i with alda in place. A/P: 59 y/o F w/ PMHx GERD, HepC, Asthma, Substance Abuse (Heroin IV, Cocaine), a/w sudden onset abdominal pain found to have pneumoperitoneum, now POD 5, Jean patch closure of perforated pyloric channel ulcer, s/p perforated viscus afebrile, vss labs stable -Pain control per medical team -abx per ID -remainder of care per medical team -pt should f/u in the office in 7-[address] Jazzmine ash attending Dr Dover
[2020-07-29] MEDS: PANTOPRAZOLE SODIUM 40 MG VIAL IVPUSH SCH ×2 (11:45→21:49)
[2020-07-29] MEDS: FLUCONAZOLE 100 MG/NS 50 ML IVPB SCH (11:47)
--- NOTE | 2020-07-29 13:36 | PN ---
Progress Note, Physician History of Present Illness: stable no new issues awake and alert tolerating diet - Current Medication List Current Medications: Active Medications Docusate Sodium (Colace Liquid -) 100 mg PO DAILY PRN PRN Reason: CONSTIPATION Last Admin: 07/29/20 09:27 Dose: 100 mg Documented by: Heparin Sodium (Porcine) (Heparin -) 5,000 unit SQ TID [facility] Last Admin: 07/29/20 06:05 Dose: 5,000 unit Documented by: Metronidazole (Flagyl 500mg Premixed Ivpb -) 500 mg in 100 mls @ 100 mls/hr IVPB Q8H-IV ERLIN Last Admin: 07/29/20 09:28 Dose: 100 mls/hr Documented by: Piperacillin Sod/Tazobactam (Sod 3.375 gm/ Dextrose) 50 mls @ 100 mls/hr IVPB Q8H-IV ERLIN; Protocol Last Admin: 07/29/20 10:39 Dose: 100 mls/hr Documented by: Fluconazole (Diflucan 100 Mg/Ns Premixed Ivpb -) 50 mls @ 50 mls/hr IVPB DAILY [facility] Last Admin: 07/29/20 11:47 Dose: 50 mls/hr Documented by: Sodium Chloride (Normal Saline -) 1,000 mls @ 50 mls/hr IV ASDIR [facility] Last Admin: 07/28/20 13:45 Dose: 50 mls/hr Documented by: Methadone HCl (Dolophine -) 100 mg PO DAILY@0600 [facility] Last Admin: 07/29/20 06:05 Dose: 100 mg Documented by: Multivitamins/Minerals/Vitamin C (Tab-A-Vit -) 1 tab PO DAILY [facility] Last Admin: 07/29/20 09:27 Dose: 1 tab Documented by: Ondansetron HCl (Zofran Injection) 4 mg IVPUSH Q6H PRN PRN Reason: NAUSEA AND/OR VOMITING Last Admin: 07/29/20 12:32 Dose: 4 mg Documented by: Oxycodone HCl (Roxicodone -) 5 mg PO Q4H PRN PRN Reason: PAIN LEVEL 6-10 Last Admin: 07/29/20 09:27 Dose: 5 mg Documented by: Pantoprazole Sodium (Protonix Iv) 40 mg IVPUSH BID [facility] Last Admin: 07/29/20 11:45 Dose: Not Given Documented by: Pantoprazole Sodium (Protonix -) 40 mg PO DAILY ERLIN Last Admin: 07/29/20 09:27 Dose: 40 mg Documented by: - Objective Vital Signs: Vital Signs Temperature 99.3 F 07/29/20 09:00 Pulse Rate 72 07/29/20 09:00 Respiratory Rate 18 07/29/20 09:00 Blood Pressure 129/97 07/29/20 09:00 O2 Sat by Pulse Oximetry (%) 100 07/29/20 09:00 Constitutional: Yes: No Distress, Calm Respiratory: Yes: Regular, CTA Bilaterally Gastrointestinal: Yes: Normal Bowel Sounds, Soft Musculoskeletal: Yes: WNL Extremities: Yes: WNL Wound/Incision: Yes: Clean/Dry Neurological: Yes: Alert, Oriented Labs: CBC, BMP 07/29/20 07:15 07/29/20 07:15 INR, PTT INR 1.01 (0.83-1.09) 07/24/20 06:10 Assessment/Plan Perforated Pyloric Ulcer s/p Jean Patch Closure Polysubstance Abuse Methadone Maintenance Asthma GERD Hep C Smoker -plan improving monitor closely rest as per the team and surgery will stop abx
--- NOTE | 2020-07-29 15:13 | PN ---
Physical Exam: SUBJECTIVE: Patient seen and examined, endorses mild abdominal pain. Denies any MARTIN, changes in vision, CP, SoB, N/V/D. States she has passed gas but no BM yet. OBJECTIVE: Vital Signs Period Temp Pulse Resp BP Sys/Hardwick Pulse Ox Last 24 Hr 97.5 F-99.3 F 52-72 16-18 116-129/63-97 98-100 GENERAL: The patient is awake, alert, and fully oriented, in no acute distress. HEAD: Normal with no signs of trauma. EYES: PERRL, extraocular movements intact, sclera anicteric, conjunctiva clear. No ptosis. NECK: Trachea midline, full range of motion, supple. LUNGS: Breath sounds equal, clear to auscultation bilaterally, no wheezes, no crackles, no accessory muscle use. HEART: Regular rate and rhythm, S1, S2 without murmur, rub or gallop. ABDOMEN: Ex-lap scar w/ alda, no drainage, no erythema. Soft, nondistended, normoactive bowel sounds EXTREMITIES: 2+ pulses, warm, well-perfused, no edema. Lower extremity PVD w/ hemosiderin like deposits NEUROLOGICAL: Normal speech, gait not observed. PSYCH: Normal mood, normal affect. SKIN: Warm, dry, normal turgor, no rashes or lesions noted Laboratory Results - last 24 hr CBC, BMP 07/29/20 07:15 07/29/20 07:15 Active Medications Generic Name Dose Route Start Last Admin Trade Name Freq PRN Reason Stop Dose Admin Docusate Sodium 100 mg 07/27/20 14:35 07/29/20 09:27 Colace Liquid - PO 100 mg DAILY PRN Administration CONSTIPATION Heparin Sodium (Porcine) 5,000 unit 07/26/20 22:00 07/29/20 14:26 Heparin - SQ 5,000 unit TID ERLIN Administration Metronidazole 500 mg in 100 mls @ 100 mls/hr 07/25/20 18:30 07/29/20 09:28 Flagyl 500mg Premixed Ivpb - IVPB 100 mls/hr Q8H-IV ERLIN Administration Piperacillin Sod/Tazobactam 50 mls @ 100 mls/hr 07/25/20 18:30 07/29/20 10:39 Sod 3.375 gm/ Dextrose IVPB 100 mls/hr Q8H-IV ERLIN Administration Protocol Fluconazole 50 mls @ 50 mls/hr 07/26/20 10:00 07/29/20 11:47 Diflucan 100 Mg/Ns Premixed Ivpb - IVPB 50 mls/hr DAILY ERLIN Administration Sodium Chloride 1,000 mls @ 50 mls/hr 07/27/20 14:36 07/28/20 13:45 Normal Saline - IV 50 mls/hr ASDIR ERLIN Administration Methadone HCl 100 mg 07/27/20 06:00 07/29/20 06:05 Dolophine - PO 100 mg DAILY@0600 ERLIN Administration Multivitamins/Minerals/Vitamin C 1 tab 07/29/20 10:00 07/29/20 09:27 Tab-A-Vit - PO 1 tab DAILY ERLIN Administration Ondansetron HCl 4 mg 07/25/20 18:13 07/29/20 12:32 Zofran Injection IVPUSH 4 mg Q6H PRN Administration NAUSEA AND/OR VOMITING Oxycodone HCl 5 mg 07/27/20 14:35 07/29/20 14:27 Roxicodone - PO 5 mg Q4H PRN Administration PAIN LEVEL 6-10 Pantoprazole Sodium 40 mg 07/25/20 22:00 07/29/20 11:45 Protonix Iv IVPUSH Not Given BID [facility] Pantoprazole Sodium 40 mg 07/28/20 10:00 07/29/20 09:27 Protonix - PO 40 mg DAILY ERLIN Administration ASSESSMENT/PLAN: 59 yo F w/ hx of active heroin and cocaine use, GERD, hep C, Ectopic , and asthma, presented with abdominal pain and found to have a perforated gastric pyloris currently s/p repair with Jean patch. ACUTE PERFORATION OF ANTERIOR PYLORIC CHANNEL 2/2 ULCER - s/p Jean Patch POD #5 - c/w Zosyn 3.375 [id number] - Day 7 - c/w Metronidazole 500mg q8 - day 6 - c/w Flucoanzole 100mg qDaily - day 6 - c/w Pantoprazole 40mg Daily - c/w Oxicodone 5mg q4 PRN for pain - c/w Colace 100mg daily for constipation - FU w/ ID for abx recs on DC - Per Surgery: f/u in 7-[address] Dover HISTORY OF POLYSUBSTANCE ABUSE -c/w Methadone 100mg HISTORY OF ASTHMA - Currently satting 97-100% on RA HISTORY OF HEP-C - No transaminitis - Normal platelets - Normal bilirubin levels. - No signs jaundice - Refer to outpatient GI for followup PPx -DVT: Heparin TID -GI: Protonix 40 BID FEN - NS @50 - Lytes - Regular diet DISPO -Continue to monitor on med/surg Visit type - Emergency Visit Emergency Visit: No - New Patient This patient is new to me today: No - Critical Care Critical Care patient: No - Discharge Referral Referred to [facility] No ATTENDING PHYSICIAN STATEMENT I saw and evaluated the patient. I reviewed the resident's note and discussed the case with the resident. I agree with the resident's findings and plan as documented. SUBJECTIVE: OBJECTIVE: ASSESSMENT AND PLAN:
[2020-07-29] MEDS: SODIUM CHLORIDE 1,000 ML IV SCH (17:13)
[2020-07-29] MEDS ORDERED: ALBUTEROL SO4 HFA INHALER IH ONE (19:51)
[2020-07-30] MEDS ORDERED: DEXTROSE 5%-WATER - 50 ML IVPB ONE (01:19)
[2020-07-30] MEDS ORDERED: PIPERACILLIN/TAZOBACTAM 3.375 GM VIAL IVPB ONE (01:19)
[2020-07-30] MEDS: PIPERACILLIN/TAZOB 3.375 GM 3.375 GM in DEXTROSE 5%-WATER - 50 ML IVPB SCH ×2 (01:40→10:27)
[2020-07-30] MEDS: oxyCODONE HCL 5 MG TABLET PO PRN ×3 (01:42→14:11)
[2020-07-30] MEDS: METHADONE HCL 10 MG TABLET PO SCH (05:57)
[2020-07-30] MEDS: HEPARIN NA (PORCINE) 5,000 UNITS/ML 1ML VIAL SQ SCH ×2 (05:57→14:11)
[2020-07-30] MEDS ORDERED: BISACODYL 10 MG SUPP.RECT PR ONE (08:02)
[2020-07-30 09:05] LABS: BASO % 0.8 % (0-2.0); EOS % 5.9 % (0-4.5); HEMATOCRIT 32.6 % (32.4-45.2); HEMOGLOBIN 10.7 GM/dL (10.7-15.3); LYMPH % 23.3 % (8-40); MCH 28.5 pg (25.7-33.7); MCHC 32.7 g/dl (32.0-36.0); MEAN PLT VOLUME 7.7 fl (7.5-11.1); MONO % 9.1 % (3.8-10.2); NEUT % 60.9 % (42.8-82.8); PLATELET COUNT 340 K/MM3 (134-434); RBC 3.75 M/mm3 (3.60-5.2); RDW 14.7 % (11.6-15.6); WHITE BLOOD COUNT 3.7 K/mm3 (4.0-10.0)
[2020-07-30 09:31] LABS: BLOOD UREA NITROGEN 10.1 mg/dL (7-18); CALCIUM 8.9 mg/dL (8.5-10.1); CREATININE 0.6 mg/dL (0.55-1.3); MAGNESIUM 1.9 mg/dL (1.8-2.4); POTASSIUM 3.8 mmol/L (3.5-5.1)
[2020-07-30] MEDS: PANTOPRAZOLE 40 MG TABLET PO SCH (10:25)
[2020-07-30] MEDS: MULTIVITAMINS (DAILY MVI) TABLET (FP) PO SCH (10:25)
[2020-07-30] MEDS: PANTOPRAZOLE SODIUM 40 MG VIAL IVPUSH SCH (10:26)
--- NOTE | 2020-07-30 10:44 | PN ---
Progress Note, Physician History of Present Illness: stable no new issues patient tolerating diet well - Current Medication List Current Medications: Active Medications Docusate Sodium (Colace Liquid -) 100 mg PO DAILY PRN PRN Reason: CONSTIPATION Last Admin: 07/29/20 09:27 Dose: 100 mg Documented by: Heparin Sodium (Porcine) (Heparin -) 5,000 unit SQ TID [facility] Last Admin: 07/30/20 05:57 Dose: 5,000 unit Documented by: Sodium Chloride (Normal Saline -) 1,000 mls @ 50 mls/hr IV ASDIR [facility] Last Admin: 07/29/20 17:13 Dose: 50 mls/hr Documented by: Methadone HCl (Dolophine -) 100 mg PO DAILY@0600 [facility] Last Admin: 07/30/20 05:57 Dose: 100 mg Documented by: Multivitamins/Minerals/Vitamin C (Tab-A-Vit -) 1 tab PO DAILY [facility] Last Admin: 07/30/20 10:25 Dose: 1 tab Documented by: Ondansetron HCl (Zofran Injection) 4 mg IVPUSH Q6H PRN PRN Reason: NAUSEA AND/OR VOMITING Last Admin: 07/29/20 12:32 Dose: 4 mg Documented by: Oxycodone HCl (Roxicodone -) 5 mg PO Q4H PRN PRN Reason: PAIN LEVEL 6-10 Last Admin: 07/30/20 10:25 Dose: 5 mg Documented by: Pantoprazole Sodium (Protonix Iv) 40 mg IVPUSH BID [facility] Last Admin: 07/30/20 10:26 Dose: Not Given Documented by: Pantoprazole Sodium (Protonix -) 40 mg PO DAILY [facility] Last Admin: 07/30/20 10:25 Dose: 40 mg Documented by: - Objective Vital Signs: Vital Signs Temperature 98.3 F 07/30/20 09:10 Pulse Rate 58 L 07/30/20 09:10 Respiratory Rate 17 07/30/20 09:10 Blood Pressure 143/74 07/30/20 09:10 O2 Sat by Pulse Oximetry (%) 99 07/30/20 09:10 Constitutional: Yes: No Distress, Calm Cardiovascular: Yes: S1, S2 Respiratory: Yes: Regular, CTA Bilaterally Gastrointestinal: Yes: Normal Bowel Sounds, Soft Musculoskeletal: Yes: WNL Extremities: Yes: WNL Neurological: Yes: Alert, Oriented Psychiatric: Yes: Alert, Oriented Labs: CBC, BMP 07/30/20 08:00 07/30/20 08:00 INR, PTT INR 1.01 (0.83-1.09) 07/24/20 06:10 Assessment/Plan Perforated Pyloric Ulcer s/p Jean Patch Closure Polysubstance Abuse Methadone Maintenance Asthma GERD Hep C Smoker -plan will stop all abx monitor tolerating diet well rest as per the team
[2020-07-30 15:19] VITALS: BP 127/72; PULSE 67; TEMP 99.6
--- NOTE | 2020-07-30 17:11 | PN ---
Teaching Attending Note Name of Resident: Rafa Cruz ATTENDING PHYSICIAN STATEMENT I saw and evaluated the patient. I reviewed the resident's note and discussed the case with the resident. I agree with the resident's findings and plan as documented. SUBJECTIVE: patient is comfortable now. OBJECTIVE: Vital Signs Temperature 99.6 F 07/30/20 14:00 Pulse Rate 67 07/30/20 14:00 Respiratory Rate 18 07/30/20 14:00 Blood Pressure 127/72 07/30/20 14:00 O2 Sat by Pulse Oximetry (%) 99 07/30/20 14:00 PE: per resident notes +BS, clean incision site with alda CBCD WBC 3.7 K/mm3 (4.0-10.0) L 07/30/20 08:00 RBC 3.75 M/mm3 (3.60-5.2) 07/30/20 08:00 Hgb 10.7 GM/dL (10.7-15.3) 07/30/20 08:00 Hct 32.6 % (32.4-45.2) 07/30/20 08:00 MCV 87.0 fl (80-96) 07/30/20 08:00 MCHC 32.7 g/dl (32.0-36.0) 07/30/20 08:00 RDW 14.7 % (11.6-15.6) 07/30/20 08:00 Plt Count 340 K/MM3 (134-434) 07/30/20 08:00 MPV 7.7 fl (7.5-11.1) 07/30/20 08:00 CMP Sodium 136 mmol/L (136-145) 07/30/20 08:00 Potassium 3.8 mmol/L (3.5-5.1) 07/30/20 08:00 Chloride 101 mmol/L (98-107) 07/30/20 08:00 Carbon Dioxide 29 mmol/L (21-32) 07/30/20 08:00 Anion Gap 7 MMOL/L (8-16) L 07/30/20 08:00 BUN 10.1 mg/dL (7-18) 07/30/20 08:00 Creatinine 0.6 mg/dL (0.55-1.3) 07/30/20 08:00 Random Glucose 100 mg/dL (74-106) 07/30/20 08:00 Calcium 8.9 mg/dL (8.5-10.1) 07/30/20 08:00 Total Bilirubin 0.6 mg/dL (0.2-1) 07/26/20 12:10 AST 24 U/L (15-37) 07/26/20 12:10 ALT 20 U/L (13-61) 07/26/20 12:10 Alkaline Phosphatase 78 U/L (45-117) 07/26/20 12:10 Total Protein 6.5 g/dl (6.4-8.2) 07/26/20 12:10 Albumin 2.7 g/dl (3.4-5.0) L 07/26/20 12:10 CARDIAC ENZYMES Creatine Kinase 178 U/L (26-192) 07/23/20 19:50 Troponin I < 0.02 ng/ml (0.00-0.05) 07/23/20 19:50 Current Medications Generic Name Dose Route Start Last Admin Trade Name Freq PRN Reason Stop Dose Admin Docusate Sodium 100 mg 07/27/20 14:35 07/29/20 09:27 Colace Liquid - PO 100 mg DAILY PRN Administration CONSTIPATION Heparin Sodium (Porcine) 5,000 unit 07/26/20 22:00 07/30/20 14:11 Heparin - SQ 5,000 unit TID ERLIN Administration Sodium Chloride 1,000 mls @ 50 mls/hr 07/27/20 14:36 07/29/20 17:13 Normal Saline - IV 50 mls/hr ASDIR ERLIN Administration Methadone HCl 100 mg 07/27/20 06:00 07/30/20 05:57 Dolophine - PO 100 mg DAILY@0600 ERLIN Administration Multivitamins/Minerals/Vitamin C 1 tab 07/29/20 10:00 07/30/20 10:25 Tab-A-Vit - PO 1 tab DAILY ERLIN Administration Ondansetron HCl 4 mg 07/25/20 18:13 07/29/20 12:32 Zofran Injection IVPUSH 4 mg Q6H PRN Administration NAUSEA AND/OR VOMITING Pantoprazole Sodium 40 mg 07/25/20 22:00 07/30/20 10:26 Protonix Iv IVPUSH Not Given BID [facility] Pantoprazole Sodium 40 mg 07/28/20 10:00 07/30/20 10:25 Protonix - PO 40 mg DAILY ERLIN Administration Home Medications Medication Instructions Recorded Albuterol Sulfate Inhaler - 1 - 2 inh PO PRN PRN 07/30/20 [Ventolin HFA Inhaler -] Pantoprazole Sodium [Protonix -] 40 mg PO BID 30 Days #60 tablet.ec 07/30/20 ASSESSMENT AND PLAN: This patient is a 59yof with PMhx of active heroin and cocaine use, GERD, hep C, Ectopic , and asthma, who presented with abdominal pain and was found to have perforated viscus # s/p POD #7 Perforated gastric pyloris:s/p Jean patch . dc antibiotics, dc patient home on protonix 40mg bid x 30 days, follow up with Dr Dover within a week-10 days # hx of Heroin and cocaine abuse cont methadone at current dose heparin Sq for DVT px protonix
--- NOTE | 2020-07-30 19:21 | DS ---
Physical Exam: SUBJECTIVE: Patient seen and examined today, endorsed constipation, but passing gas. Denied F/C, MARTIN, CP, SoB, N/V/D. OBJECTIVE: Vital Signs Period Temp Pulse Resp BP Sys/Hardwick Pulse Ox Last 24 Hr 98.3 F-99.6 F 58-67 17-18 115-143/60-81 97-99 PHYSICAL EXAM GENERAL: The patient is awake, alert, and fully oriented, in no acute distress. HEAD: Normal with no signs of trauma. EYES: PERRL, extraocular movements intact, sclera anicteric, conjunctiva clear. No ptosis. NECK: Trachea midline, full range of motion, supple. LUNGS: Breath sounds equal, clear to auscultation bilaterally, no wheezes, no crackles, no accessory muscle use. HEART: Regular rate and rhythm, S1, S2 without murmur, rub or gallop. ABDOMEN: Ex-lap scar w/ alda, no drainage, no erythema. Soft, nondistended, normoactive bowel sounds EXTREMITIES: 2+ pulses, warm, well-perfused, no edema. Lower extremity PVD w/ hemosiderin like deposits NEUROLOGICAL: Normal speech, gait not observed. PSYCH: Normal mood, normal affect. SKIN: Warm, dry, normal turgor, no rashes or lesions noted LABS Laboratory Results - last 24 hr 07/30/20 07/30/20 08:00 08:00 WBC 3.7 L RBC 3.75 Hgb 10.7 Hct 32.6 MCV 87.0 MCH 28.5 MCHC 32.7 RDW 14.7 Plt Count 340 MPV 7.7 Absolute Neuts (auto) 2.2 Neutrophils % 60.9 Lymphocytes % 23.3 Monocytes % 9.1 Eosinophils % 5.9 H Basophils % 0.8 Nucleated RBC % 0 Sodium 136 Potassium 3.8 Chloride 101 Carbon Dioxide 29 Anion Gap 7 L BUN 10.1 Creatinine 0.6 Est GFR (CKD-EPI)AfAm 114.02 Est GFR (CKD-EPI)NonAf 98.38 Random Glucose 100 Calcium 8.9 Magnesium 1.9 HOSPITAL COURSE: Date of Admission:07/23/20 CT Head: No CT evidence of acute intracranial pathology. CT Spine: No fracture identified CT Abd/Chest:: -Focal air-filled pocket extending through the ventral wall of the gastric antrum into the left subhepatic space suggestive of a site of perforation. A small to moderate amount of free fluid is seen within the abdomen and pelvis which is not definitely hemorrhagic. -The common bile duct appears be slightly prominent with a 0.7 cm diameter. There is also apparent mild intrahepatic biliary tract dilatation centrally. -A subacute/healing fracture of the right 11th rib is noted posteriorly. -Several small bilateral upper and lower lung field subpleural bullae are seen. -A nonspecific noncalcified 0.5 cm nodule is noted within the right lower lobe laterally. Date of Discharge: 07/30/20 59 yo F with PMHx of GERD, HepC, Asthma, Ectopic , Substance Abuse (Heroin IV, Cocaine - currently using). Ptn was BIBEMS 2/2 sudden onset abdominal pain. Ptn says the abdominal pain was right sided, non-radiating, tight. Additionally, ptn suffered a mechanical fall 1 day prior to admission which was negative on imaging. She endorsed nausea, vomiting, and difficulty urinating. She denied fevers, chills, sob, cp,k dysuria, hematuria, frequency, bloody stools. ER course was notable for: Fluids, Tylenol, Zosyn, Zofran, Pepcid The patient was seen by the Surgery and ID teams, which following clinical exam and imaging determined that the patient needed to go for an exploratory laparotomy. Ptn was found to have a perforation at the anterior pyloric channel, which was repaired with a Jean Patch. Patient was brought to the med/surg floors and started on Metro, Fluconazole and Zosyn for antibiotic control. Due to somnolence, home methadone dose of 130mg was decreased to 100mg during stay. Over the course of her stay, the patient remained afebrile, and her white count dropped to normal levels. Ptn was instructed on substance abuse programs, as well as to follow up regarding inciidental findings as shown above on imaging. Protonix 40mg BID was rx'd per surgery recs. Wound care instructions were given and FU appointment w/ Dr. Dover (General Surgery) who performed the procedure was made. At time of DC ptn was medically stable. Minutes to complete discharge: 36 Discharge Summary Problems reviewed: Yes Reason For Visit: PERFORATION OF INTESTINE, PNEUMOPERITONEUM Condition: Stable - Instructions Diet, Activity, Other Instructions: YOUR VISIT You came to the hospital because you were experiencing stomach pain and had fallen down. You were admitted to the hospital and found to have a small hole in your stomach. You had surgery to repair this condition. You are now stable and may return home. MEDICATIONS Please continue to take your home medications as prescribed. Please START taking Protonix 40mg twice a day (morning and night) for your stomach and ask Dr. Dover how long you need to continue. ADDITIONAL CARE Of note, during your stay we also found: CAT Scan: -Evidence of a small "lung nodule" and lung abnormalities called "subpleural bullae," which we have referred you to a merry go round attendant. -Evidence of a "dilated common bile duct" which we have referred you to your primary care physician to follow up with. Please make an appointment to see Dr. Hao Hollis (Primary Care) within 2 weeks for follow up after hospitalization. Please make an appointment to see Dr. Lynne (Pulomonology) within 2 weeks to discuss your lung findings. Please make an appointment to see Dr. Dover (General Surgery) within 7-10 days for evaluation of your recent surgery Please make an appointment to see Dr. Nas Laguerre (Gastroenterology) within 2 weeks for evaluation of your Hepatitis C Please make an appointment to see Dr. Yann Laureano (Addiction Medicine) within 2 weeks for evaluation of substance use ADDITIONAL INFORMATION Please call 911 or come directly to the emergency department if you experience recurrence of the symptoms that brought you to the hospital, unusual headache, vision change, shortness of breath, chest pain, numbness, tingling, loss of a lertness/awareness, loss of function, unusual bleeding or any alarming symptoms. Dr. Dover Discharge Instructions Dear ALIS SULLIVAN, Post Operative Instructions Physical activity Resume your normal everyday activity as tolerated no heavy lifting or exercise until seen by your surgeon. You may walk unlimited amounts of and climb stairs. You may resume driving the car when you feel safe and comfortable behind the wheel. Wound care You may shower in 2 days. When showering allow soap and water to run over the incision. Do not scrub, pat dry after showering. Diet There are no dietary restrictions. Eat healthy, high-fiber foods. Drink 6 to 8 glasses of liquid each day. This will assist in keeping your bowels are regular. Pain management You may take Tylenol or acetaminophen or Ibuprofen (for example, Motrin, Advil etc.) Call Dr. Dover for any of the following: Severe pain not relieved by medication Fever of 101 or higher Excessive bleeding or drainage on dressing Inability to urinate Call the office at [phone] for a post operative appointment in 7 - 10 days. Referrals: Corbin Dover MD [Staff Physician] - 1 Week Nas Laguerre MD [Staff Physician] - 2 Weeks (Unknown hx and treatment record for Hep C. Hx IVDU. ) Hao Hollis MD [Primary Care Provider] - 2 Weeks Jacinto Lynne MD [Staff Physician] - Yann Laureano DO [Staff Physician] - 2 Weeks Disposition: HOME - Home Medications Comprehensive Discharge Medication List: Ambulatory Orders Albuterol Sulfate Inhaler - [Ventolin HFA Inhaler -] 1 - 2 inh PO PRN PRN 07/30/20 Pantoprazole Sodium [Protonix -] 40 mg PO BID 30 Days #60 tablet.ec 07/30/20 This patient is new to me today: No Emergency Visit: No Critical Care patient: No - Discharge Referral Referred to [facility] No ATTENDING PHYSICIAN STATEMENT I saw and evaluated the patient. I reviewed the resident's note and discussed the case with the resident. I agree with the resident's findings and plan as documented. SUBJECTIVE: OBJECTIVE: ASSESSMENT AND PLAN:
== END 2020-07-30 19:05 | disposition home or self-care (01) | DRG 222 ==
LOC: JER 18:50 → JERBED 22:48 → JICU 07-24 02:40 → J5S 07-25 18:11
PROVIDERS: ADMIT Internal Medicine; ATTEND Internal Medicine
PROC: 0DU707Z Supplement Stomach, Pylorus with Autologous Tissue Substitute, Open Approach (ICD-10-PCS; principal; 2020-07-24 08:37)
DX: K25.1 Acute gastric ulcer with perforation (principal); F11.20 Opioid dependence, uncomplicated; J45.909 Unspecified asthma, uncomplicated; F17.210 Nicotine dependence, cigarettes, uncomplicated; K21.9 Gastro-esophageal reflux disease without esophagitis; F10.10 Alcohol abuse, uncomplicated; R00.0 Tachycardia, unspecified; F14.10 Cocaine abuse, uncomplicated; R33.9 Retention of urine, unspecified; B19.20 Unspecified viral hepatitis C without hepatic coma
CPT/HCPCS: 36415; 70450-TC; 71260-TC; 72125-TC; 74177-TC; 76604; 76705-TC; 80048; 80053; 80307; 81003; 82550; 82553; 82962; 83605; 83690; 83735; 84100; 84484; 85025; 85027; 85610; 85730; 86850; 86900; 86901; 87070; 87075; 87081; 87086; 87205; 93005; 93010; 93308; 94010; 94640; 97116-GP; 97162-GP; 99291; G0008; J0131; J1644; Q2036; Q9967; U0003

== ENCOUNTER 2021-07-06 01:04 | Emergency (ER) | payer OTHER ==
[2021-07-06 01:27] VITALS: BP 120/86; PULSE 76; TEMP 98.2; BMI 23.0
[2021-07-06] MEDS ORDERED: LIDOCAINE 2.5%/PRILOCAINE 2.5% (5 Gram/TUBE) TP ONE (01:51)
[2021-07-06] MEDS ORDERED: LIDOCAINE 2.5%/PRILOCAINE 2.5% 30 GRAM TUBE TP ONE (02:00)
[2021-07-06] MEDS ORDERED: ERYTHROMYCIN 0.5% OPHTHALMIC OINTMENT 3.5 GM TUBE OU ONE (02:11)
[2021-07-06] MEDS ORDERED: ERYTHROMYCIN 0.5% OPHTHALMIC OINTMENT 3.5 GM TUBE ONE (02:23)
== END 2021-07-06 02:49 | disposition home or self-care (01) ==
LOC: JER 01:04
DX: H10.9 Unspecified conjunctivitis (principal); Z48.02 Encounter for removal of sutures
CPT/HCPCS: 99283-25

== ENCOUNTER 2022-12-01 01:11 | Emergency (ER) | payer OTHER ==
[2022-12-01 01:25] VITALS: BP 104/68; PULSE 74; RESP 16; TEMP 98.3; BMI 20.3
[2022-12-01] MEDS ORDERED: ACETAMINOPHEN 500 MG TABLET (FP) PO ONE (02:08)
[2022-12-01] MEDS ORDERED: ACETAMINOPHEN 325 MG TABLET (FP) ONE (02:19)
[2022-12-01 03:28] LABS: BASO % 0.5 % (0-2.0); EOS % 0.9 % (0-4.5); HEMATOCRIT 34.3 % (32.4-45.2); HEMOGLOBIN 11.3 GM/dL (10.7-15.3); LYMPH % 14.4 % (8-40); MCH 28.4 pg (25.7-33.7); MCHC 32.8 g/dl (32.0-36.0); MEAN CELL VOLUME 86.6 fl (80-96); MEAN PLT VOLUME 7.7 fl (7.5-11.1); MONO % 7.4 % (3.8-10.2); NEUT % 76.8 % (42.8-82.8); PLATELET COUNT 272 10^3/uL (134-434); RBC 3.97 M/mm3 (3.60-5.2); RDW 15.1 % (11.6-15.6); WHITE BLOOD COUNT 7.4 K/mm3 (4.0-10.0)
[2022-12-01 03:36] LABS: INR 1.03 (0.83-1.09)
[2022-12-01 03:39] LABS: ACTIVATED PTT 32.1 SECONDS (25.2-36.5)
[2022-12-01 03:50] LABS: ALBUMIN 3.5 g/dl (3.4-5.0); BLOOD UREA NITROGEN 17.6 mg/dL (7-18)
[2022-12-01 03:53] LABS: CREATININE 1.3 mg/dL (0.55-1.3)
[2022-12-01 03:55] LABS: BILIRUBIN,TOTAL 0.3 mg/dL (0.2-1); TOT PROT 7.3 g/dl (6.4-8.2)
== END 2022-12-01 05:07 | disposition home or self-care (01) ==
LOC: JER 01:11
DX: M79.601 Pain in right arm (principal); M79.605 Pain in left leg
CPT/HCPCS: 36415; 73030-TC-RT-FY; 73502-TC-LT-FY; 80053; 82550; 82553; 85025; 85610; 85730; 99283-25; 99285-25

== ENCOUNTER 2023-05-07 16:41 | Emergency (ER) | payer OTHER ==
[2023-05-07 16:53] VITALS: BP 123/61; PULSE 95; RESP 18; TEMP 98.2; BMI 23.9
[2023-05-07] MEDS ORDERED: CEPHALEXIN 250 MG/5 ML ORAL SUSPENSION PO ONE (20:43)
[2023-05-07] MEDS ORDERED: SULFAMETHOXAZOLE/TRIMETHOPRIM 800MG/160MG D.S. TABLET PO ONE (20:44)
[2023-05-07] MEDS ORDERED: SULFAMETHOXAZOLE/TRIMETHOPRIM 800MG/160MG D.S. TABLET ONE (21:00)
[2023-05-07] MEDS ORDERED: CEPHALEXIN MONOHYDRATE 500 MG CAPSULE (UD) ONE (21:00)
[2023-05-07] MEDS ORDERED: CEPHALEXIN MONOHYDRATE 250 MG CAPSULE (FP) ONE (21:01)
== END 2023-05-07 21:23 | disposition home or self-care (01) ==
LOC: JER 16:41
DX: L03.116 Cellulitis of left lower limb (principal); L03.115 Cellulitis of right lower limb; S81.802A Unspecified open wound, left lower leg, initial encounter
CPT/HCPCS: 73630-TC-LT; 73630-TC-RT-FY; 99283-25

== ENCOUNTER 2023-05-17 10:35 | Inpatient (IN) | payer OTHER ==
[2023-05-17 11:13] VITALS: BMI 21.2
[2023-05-17] MEDS ORDERED: LOPERAMIDE HCL 2 MG CAPSULE PO PRN (12:08)
[2023-05-17] MEDS ORDERED: MAGNESIUM HYDROX 2400MG/30ML ORAL SUSPENSION 30 ML CUP PO PRN (12:08)
[2023-05-17] MEDS ORDERED: BENZONATATE 200 MG CAPSULE PO PRN (12:08)
[2023-05-17] MEDS ORDERED: ACETAMINOPHEN 325 MG TABLET (FP) PO PRN (12:08)
[2023-05-17] MEDS ORDERED: IBUPROFEN 600 MG TABLET (FP) PO PRN (12:08)
[2023-05-17] MEDS ORDERED: NALOXONE HCL 0.4 MG/ML VIAL IM PRN (12:08)
[2023-05-17] MEDS ORDERED: guaiFENesin 600 MG TABLET.ER (FP) PO PRN (12:08)
[2023-05-17] MEDS ORDERED: POLYETHYLENE GLYCOL (HEALTHYLAX) 3350 17 GM PACKET PO PRN (12:08)
[2023-05-17] MEDS ORDERED: NALOXONE HCL (KLOXXADO) 8 MG SPRAY NS PRN (12:08)
[2023-05-17] MEDS ORDERED: AMMONIUM LACTATE 12% LOTION 225 GM BOTTLE TP PRN (12:08)
[2023-05-17] MEDS ORDERED: COLLOIDAL OATMEAL 1 BAR EACH TP PRN (12:08)
[2023-05-17] MEDS ORDERED: IBUPROFEN 400 MG TABLET (FP) PO PRN (12:08)
[2023-05-17] MEDS ORDERED: P-EPHED 60MG/TRIPROLIDI 2.5MG TABLET PO PRN (12:08)
[2023-05-17] MEDS ORDERED: BENZOCAINE/MENTHOL (CHLORASEPTIC ) LOZENGE MM PRN (12:08)
[2023-05-17] MEDS ORDERED: diphenhydrAMINE HCL 25 MG CAPSULE (FP) PO ONE (12:24)
[2023-05-17] MEDS ORDERED: TUBERCULIN PPD 5 TU/0.1ML VIAL ID ONE ×2 (12:24→14:38)
[2023-05-17] MEDS: NICOTINE 14 MG/24 HOURS TOPICAL PATCH TD SCH (14:44)
[2023-05-17] MEDS: CALAMINE 8% TOPICAL LOTION 177 ML BOTTLE TP PRN (14:49)
[2023-05-17] MEDS: THIAMINE HCL 100 MG TABLET (FP) PO SCH (21:39)
[2023-05-17] MEDS ORDERED: MELATONIN 5 MG TABLETS PO SCH (22:00)
[2023-05-18] MEDS ORDERED: methaDONE HCL 40 MG DISPERSABLE TABLET PO SCH (06:00)
[2023-05-18] MEDS: methaDONE 80 MG, methaDONE 20 MG PO SCH (06:00)
[2023-05-18] MEDS: PRENATAL VITAMINS W/ FOLIC ACID TABLET (FP) PO SCH (09:56)
[2023-05-18] MEDS: NICOTINE 14 MG/24 HOURS TOPICAL PATCH TD SCH (09:56)
[2023-05-18] MEDS: CALAMINE 8% TOPICAL LOTION 177 ML BOTTLE TP PRN (09:59)
[2023-05-18 11:57] LABS: HEMATOCRIT 38.5 % (32.4-45.2); HEMOGLOBIN 12.1 GM/dL (10.7-15.3); MCH 27.6 pg (25.7-33.7); MCHC 31.5 g/dl (32.0-36.0); MEAN CELL VOLUME 87.7 fl (80-96); MEAN PLT VOLUME 8.9 fl (7.5-11.1); PLATELET COUNT 310 10^3/uL (134-434); RBC 4.39 M/mm3 (3.60-5.2); RDW 14.8 % (11.6-15.6); WHITE BLOOD COUNT 3.4 K/mm3 (4.0-10.0)
[2023-05-18 12:03] LABS: CHLORIDE 105 mmol/L (98-107); POTASSIUM 4.9 mmol/L (3.5-5.1); SODIUM 139 mmol/L (136-145)
[2023-05-18 12:51] LABS: ALBUMIN 3.3 g/dl (3.4-5.0)
[2023-05-18 12:52] LABS: ANION GAP 6 MMOL/L (8-16); BLOOD UREA NITROGEN 19.5 mg/dL (7-18); CALCIUM 9.3 mg/dL (8.5-10.1); CO2 28 mmol/L (21-32); GLUCOSE,RANDOM 102 mg/dL (74-106)
[2023-05-18 12:54] LABS: CREATININE 1.2 mg/dL (0.55-1.3); SGPT/ALT 21 U/L (13-61)
[2023-05-18 12:55] LABS: SGOT/AST 20 U/L (15-37)
[2023-05-18 12:56] LABS: BILIRUBIN,TOTAL < 0.1 mg/dL (0.2-1); TOT PROT 7.3 g/dl (6.4-8.2)
[2023-05-18 12:57] LABS: ALK PHOS 147 U/L (45-117)
[2023-05-18 13:00] LABS: HIV INTERPRETATION NEGATIVE (NEGATIVE)
[2023-05-18] MEDS: MELATONIN 5 MG TABLETS PO SCH (21:10)
[2023-05-18] MEDS: MAG HYDROX/AL HYDROX/SIMETH 30 ML UNIT-DOSE CUP PO PRN (21:12)
[2023-05-18] MEDS: THIAMINE HCL 100 MG TABLET (FP) PO SCH (21:12)
[2023-05-19 01:46] LABS: EPI CELLS >36 /uL (0-25.1); HYALINE CASTS 0 /uL (0-3.1); URINE APPEARANCE CLEAR; URINE BACTERIA 890 /uL (0-1359); URINE BILIRUBIN NEGATIVE (NEGATIVE); URINE COLOR YELLOW; URINE GLUCOSE (UA) NEGATIVE (NEGATIVE); URINE KETONE NEGATIVE (NEGATIVE); URINE LEUK ESTERASE TRACE (NEGATIVE); URINE NITRITE NEGATIVE (NEGATIVE); URINE PROTEIN NEGATIVE (NEGATIVE); URINE RBC 39 /uL (0-23.9); URINE WBC 25 /uL (0-25.8)
[2023-05-19] MEDS: methaDONE 80 MG, methaDONE 20 MG PO SCH (06:15)
[2023-05-19] MEDS: NICOTINE 14 MG/24 HOURS TOPICAL PATCH TD SCH (09:54)
[2023-05-19] MEDS: PRENATAL VITAMINS W/ FOLIC ACID TABLET (FP) PO SCH (09:54)
[2023-05-19] MEDS: MAG HYDROX/AL HYDROX/SIMETH 30 ML UNIT-DOSE CUP PO PRN ×2 (09:55→21:41)
[2023-05-19] MEDS: MELATONIN 5 MG TABLETS PO SCH (21:41)
[2023-05-19] MEDS: THIAMINE HCL 100 MG TABLET (FP) PO SCH (21:41)
[2023-05-20] MEDS: methaDONE 80 MG, methaDONE 20 MG PO SCH (06:22)
[2023-05-20] MEDS: PRENATAL VITAMINS W/ FOLIC ACID TABLET (FP) PO SCH (09:53)
[2023-05-20] MEDS: NICOTINE 14 MG/24 HOURS TOPICAL PATCH TD SCH (09:53)
[2023-05-20] MEDS: MAG HYDROX/AL HYDROX/SIMETH 30 ML UNIT-DOSE CUP PO PRN (09:55)
[2023-05-20] MEDS: THIAMINE HCL 100 MG TABLET (FP) PO SCH (21:24)
[2023-05-20] MEDS: MELATONIN 5 MG TABLETS PO SCH (21:24)
[2023-05-21] MEDS: methaDONE 80 MG, methaDONE 20 MG PO SCH (06:57)
[2023-05-21] MEDS: NICOTINE 14 MG/24 HOURS TOPICAL PATCH TD SCH (09:32)
[2023-05-21] MEDS: PRENATAL VITAMINS W/ FOLIC ACID TABLET (FP) PO SCH (09:32)
[2023-05-21] MEDS: MELATONIN 5 MG TABLETS PO SCH (21:32)
[2023-05-21] MEDS: THIAMINE HCL 100 MG TABLET (FP) PO SCH (21:32)
[2023-05-22] MEDS: methaDONE 80 MG, methaDONE 20 MG PO SCH (06:12)
[2023-05-22] MEDS: PRENATAL VITAMINS W/ FOLIC ACID TABLET (FP) PO SCH (09:28)
[2023-05-22] MEDS: NICOTINE 14 MG/24 HOURS TOPICAL PATCH TD SCH (09:28)
[2023-05-22] MEDS: THIAMINE HCL 100 MG TABLET (FP) PO SCH (21:15)
[2023-05-22] MEDS: MELATONIN 5 MG TABLETS PO SCH (21:15)
[2023-05-23] MEDS ORDERED: PANTOPRAZOLE 20 MG TABLET PO ONE (01:53)
[2023-05-23] MEDS: methaDONE 80 MG, methaDONE 20 MG PO SCH (06:08)
[2023-05-23] MEDS: PRENATAL VITAMINS W/ FOLIC ACID TABLET (FP) PO SCH (09:36)
[2023-05-23] MEDS: NICOTINE 14 MG/24 HOURS TOPICAL PATCH TD SCH (09:36)
[2023-05-23] MEDS: PANTOPRAZOLE 20 MG TABLET PO SCH (09:37)
[2023-05-23] MEDS: THIAMINE HCL 100 MG TABLET (FP) PO SCH (21:19)
[2023-05-23] MEDS: MELATONIN 5 MG TABLETS PO SCH (21:19)
[2023-05-24] MEDS: methaDONE 80 MG, methaDONE 20 MG PO SCH (06:12)
[2023-05-24] MEDS: PRENATAL VITAMINS W/ FOLIC ACID TABLET (FP) PO SCH (09:47)
[2023-05-24] MEDS: PANTOPRAZOLE 20 MG TABLET PO SCH (09:47)
[2023-05-24] MEDS: NICOTINE 14 MG/24 HOURS TOPICAL PATCH TD SCH (09:47)
[2023-05-24] MEDS: THIAMINE HCL 100 MG TABLET (FP) PO SCH (21:14)
[2023-05-24] MEDS: MELATONIN 5 MG TABLETS PO SCH (21:14)
[2023-05-25] MEDS: methaDONE 80 MG, methaDONE 20 MG PO SCH (06:13)
[2023-05-25 07:04] VITALS: PULSE 65; RESP 18
[2023-05-25] MEDS ORDERED: LIDOCAINE 5% TOPICAL PATCH TP ONE (09:19)
[2023-05-25] MEDS: PRENATAL VITAMINS W/ FOLIC ACID TABLET (FP) PO SCH (09:37)
[2023-05-25] MEDS: PANTOPRAZOLE 20 MG TABLET PO SCH (09:37)
[2023-05-25] MEDS: NICOTINE 14 MG/24 HOURS TOPICAL PATCH TD SCH (09:39)
[2023-05-25] MEDS: MELATONIN 5 MG TABLETS PO SCH (21:06)
[2023-05-25] MEDS: THIAMINE HCL 100 MG TABLET (FP) PO SCH (21:06)
[2023-05-25] MEDS ORDERED: LIDOCAINE PATCH REMOVAL MC SCH (22:00)
[2023-05-26] MEDS: methaDONE 80 MG, methaDONE 20 MG PO SCH (06:00)
[2023-05-26 07:18] VITALS: BP 99/63; TEMP 97.9
[2023-05-26] MEDS: NICOTINE 14 MG/24 HOURS TOPICAL PATCH TD SCH (09:45)
[2023-05-26] MEDS: PANTOPRAZOLE 20 MG TABLET PO SCH (09:45)
[2023-05-26] MEDS: PRENATAL VITAMINS W/ FOLIC ACID TABLET (FP) PO SCH (09:45)
[2023-05-26] MEDS ORDERED: LIDOCAINE 5% TOPICAL PATCH TP SCH (10:15)
[2023-05-26] MEDS ORDERED: LIDOCAINE PATCH REMOVAL MC SCH (22:00)
== END 2023-05-26 13:00 | disposition home or self-care (01) | DRG 895 ==
LOC: YASAS 10:35 → Y5N 12:30
PROVIDERS: ADMIT Allergy & Immunology; ATTEND Psychiatry & Neurology Pain Medicine
PROC: HZ42ZZZ Group Counseling for Substance Abuse Treatment, Cognitive-Behavioral (ICD-10-PCS; principal; 2023-05-17)
DX: F14.20 Cocaine dependence, uncomplicated (principal); F11.20 Opioid dependence, uncomplicated; F17.210 Nicotine dependence, cigarettes, uncomplicated; F32.A Depression, unspecified; K21.9 Gastro-esophageal reflux disease without esophagitis; J45.20 Mild intermittent asthma, uncomplicated; Z28.310 Unvaccinated for COVID-19; Z56.0 Unemployment, unspecified
CPT/HCPCS: 36415; 80053; 81003; 85027; 86780; 87389; 87635; 87811

== ENCOUNTER 2025-08-02 19:14 | Inpatient (IN) | payer OTHER ==
[2025-08-02 19:49] VITALS: BMI 19.1
[2025-08-02] MEDS ORDERED: IBUPROFEN 400 MG TABLET (FP) PO PRN (21:10)
[2025-08-02] MEDS ORDERED: NICOTINE POLACRILEX 2 MG LOZENGE BC PRN (21:10)
[2025-08-02] MEDS ORDERED: BENZONATATE 200 MG CAPSULE PO PRN (21:10)
[2025-08-02] MEDS ORDERED: BENZOCAINE/MENTHOL (CHLORASEPTIC ) LOZENGE MM PRN (21:10)
[2025-08-02] MEDS ORDERED: MAGNESIUM HYDROX 2400MG/30ML ORAL SUSPENSION 30 ML CUP PO PRN (21:10)
[2025-08-02] MEDS ORDERED: NALOXONE (NARCAN) HCL 4 MG/0.1 ML SPRAY NS PRN (21:10)
[2025-08-02] MEDS ORDERED: LOPERAMIDE HCL 2 MG CAPSULE PO PRN (21:10)
[2025-08-02] MEDS ORDERED: POLYETHYLENE GLYCOL (HEALTHYLAX) 3350 17 GM PACKET PO PRN (21:10)
[2025-08-02] MEDS ORDERED: guaiFENesin 600 MG TABLET.ER (FP) PO PRN (21:10)
[2025-08-02] MEDS ORDERED: ACETAMINOPHEN 325 MG TABLET (FP) PO PRN (21:10)
[2025-08-02] MEDS ORDERED: MAG HYDROX/AL HYDROX/SIMETH 30 ML UNIT-DOSE CUP PO PRN (21:10)
[2025-08-02] MEDS: MELATONIN 5 MG TABLETS PO SCH (22:08)
[2025-08-02] MEDS: THIAMINE 100 MG TABLET PO SCH (22:08)
[2025-08-02] MEDS: LIDOCAINE PATCH REMOVAL MC SCH (22:08)
[2025-08-02] MEDS: SILVER SULFADIAZINE 1% TOP CREAM 50 GM JAR TP SCH (23:40)
[2025-08-03] MEDS: IBUPROFEN 600 MG TABLET (FP) PO PRN (01:23)
[2025-08-03 02:23] LABS: URINE APPEARANCE CLEAR; URINE BILIRUBIN NEGATIVE (NEGATIVE); URINE COLOR YELLOW; URINE GLUCOSE (UA) NEGATIVE (NEGATIVE); URINE KETONE NEGATIVE (NEGATIVE); URINE LEUK ESTERASE NEGATIVE (NEGATIVE); URINE NITRITE NEGATIVE (NEGATIVE); URINE PROTEIN NEGATIVE (NEGATIVE); URINE UROBILINOGEN 1.0 mg/dL (0.2-1.0)
[2025-08-03] MEDS: LIDOCAINE 5% TOPICAL PATCH TP SCH (10:20)
[2025-08-03] MEDS: PRENATAL VITAMINS W/ FOLIC ACID TABLET (FP) PO SCH (10:20)
[2025-08-03] MEDS: NICOTINE 14 MG/24 HOURS TOPICAL PATCH TD SCH (10:21)
[2025-08-03] MEDS: FAMOTIDINE 20 MG TABLET PO SCH (10:28)
[2025-08-03] MEDS ORDERED: TUBERCULIN PPD 5 TU/0.1ML VIAL ID ONE (10:49)
[2025-08-03 10:52] LABS: MCHC 31.1 g/dl (32.2-35.5); MEAN CELL VOLUME 89.4 fl (79.4-94.8); MEAN PLT VOLUME 10.8 fl (9.4-12.3); RDW 14.2 % (12.4-16.4)
[2025-08-03 11:03] LABS: GLUCOSE,RANDOM 105 mg/dL (74-106); TOT PROT 6.3 g/dl (6.4-8.2)
[2025-08-03 11:04] LABS: CO2 25 mmol/L (21-32)
[2025-08-03 11:06] LABS: ALK PHOS 95 U/L (40-150)
[2025-08-03 11:08] LABS: SGOT/AST 23 U/L (5-34); SGPT/ALT 18 U/L (0-55)
[2025-08-03 11:09] LABS: CREATININE 0.91 mg/dL (0.55-1.3)
[2025-08-03 11:21] LABS: SYPHILIS W/ RPR CONF NON-REACTIVE (NONREACTIVE)
[2025-08-03 11:23] LABS: HCV DIAGNOSTIC IN-HOUSE W/RFLX REACTIVE (NONREACTIVE)
[2025-08-03] MEDS: TUBERCULIN PPD 5 TU/0.1ML SYRINGE (IN PATIENT USE ONLY) ID ONE (12:36)
[2025-08-09 05:49] VITALS: RESP 18
[2025-08-10 06:43] VITALS: BP 109/59; PULSE 60; TEMP 97.8
== END 2025-08-10 13:50 | disposition home or self-care (01) | DRG 895 ==
LOC: YASAS 19:14 → Y5N 21:39
PROVIDERS: ADMIT Psychiatry & Neurology Pain Medicine; ATTEND Psychiatry & Neurology Pain Medicine
PROC: HZ42ZZZ Group Counseling for Substance Abuse Treatment, Cognitive-Behavioral (ICD-10-PCS; principal; 2025-08-02)
DX: F11.20 Opioid dependence, uncomplicated (principal); F14.20 Cocaine dependence, uncomplicated; F19.282 Other psychoactive substance dependence with psychoactive substance-induced sleep disorder; Z59.00 Homelessness unspecified; F17.210 Nicotine dependence, cigarettes, uncomplicated; F32.A Depression, unspecified; I73.9 Peripheral vascular disease, unspecified; K21.9 Gastro-esophageal reflux disease without esophagitis; J45.20 Mild intermittent asthma, uncomplicated; Z87.19 Personal history of other diseases of the digestive system; Z56.0 Unemployment, unspecified
CPT/HCPCS: 36415; 80053; 80305; 80307; 81003; 85027; 86780; 86803; 87522; 93005; 93010